=== PATIENT | male | born 1995 | race Caucasian/White ===

== ENCOUNTER 2024-03-14 12:36 | Outpatient (OUT) | payer BC, SELFPAY | END 2024-03-14 12:37 | disposition home or self-care (01) | LOC: CARD 12:42 | PROVIDERS: Visit Provider Physician Assistant | DX: R55 Syncope and collapse (principal); R94.31 Abnormal electrocardiogram [ECG] [EKG] | CPT/HCPCS: 93270 ==

== ENCOUNTER 2024-11-22 06:58 | Outpatient (OUT) | payer BC, SELFPAY ==
--- NOTE | 2024-11-22 | US_ITS ---
[facility] [place] [id number] Patient Name: ELVIN CAMILO MRN: [id number] date: 1995 Sex: M Assigned Patient Location: US Current Patient Location: US Accession/Order Number: [id number] Exam Date: 11/22/2024 07:02 Report Date: 11/22/2024 10:01 At the request of: MARY MONET Procedure: US right upper quadrant LIMITED RIGHT UPPER QUADRANT ABDOMINAL ULTRASOUND CLINICAL HISTORY: RIGHT UPPER QUADRANT PAIN x 2 WEEKS R10.11 COMPARISON: None The gallbladder is physiologically distended without shadowing calculi, wall thickening or pericholecystic fluid. No intra- or extrahepatic biliary dilatation is evident. The common duct measures 2-3 mm. The liver is normal in echogenicity. No intrahepatic masses are seen. There is appropriate hepatopetal flow within the main portal vein. The pancreas shows no significant sonographic abnormality. Cursory evaluation of the right kidney reveals no hydronephrosis or fluid within Barajas's pouch. US/US right upper quadrant IMPRESSION: NEGATIVE ULTRASOUND OF THE RIGHT UPPER QUADRANT. Impression dictated by: Mary uGidry M.D. 11/22/2024 10:01 AM Dictation Location: [place] [address] Electronically authenticated by: [id number] Y Date: 11/22/2024 10:01
--- OUTSIDE RECORDS SUMMARY | 2024-11-22 06:59 | XMS_ITS | Encounter Summary ---
Author Organization [facility] Address [address] [place] [address] Phone Care Team Providers Care Behavioral Health Consultant Name Role Phone Wallace Christopher PA-C Primary Care Provider [phone] Mary Whittington PA-C Unavailable [phone] Encounter Details Date Type Department Care Team (Late st Contact Info) Description 07/29/2024 Patient Risk Score ACO Care Management [address] [facility] [address] [place] [address] Social History Tobacco Use Types Packs/Day Years Used Date Smoking Tobacco: Never Passive Smoke Exposure: Never Smokeless Tobacco: Never Alcohol Use Standard Drinks/Week Comments Yes 0 (1 standard drink = 0.6 oz pur e alcohol) AUDIT-C Answer Date Recorded Q1: How often do you have a drink containing alc ohol? Monthly or less 12/06/2023 Q2: How many drinks containi ng alcohol do you have on a typical day when you are drinking? 1 or 2 12/06/2023 Q3: How often do you have si x or more drinks on one occasion? Never 12/06/2023 PHQ-2 Answer Date Recorded Patient Health Questionnaire-2 Score 0 11/02/2023 Sex and Gender Information Value Date Recorded Sex Assigned at Not on file Legal Sex Male 2:24 PM EST Gender Identity Not on file Sexual Orientation Not on file documented as of this encounter Plan of Treatment Not on file documented as of this encounter Visit Diagnoses Not on filedocumented in this encounter Additional Health Concerns Assessment Noted Time A fall risk assessment has been complete d for the patient 12/06/2023 1:50 PM EDT documented as of this encounter Care Teams Behavioral Health Consultant Relationship Specialty Start Date End Date Wallace Christopher PA-C [address] [facility], [address] [place] [address] PCP - General Internal Medicine 11/02/23 Mary Whittington PA-C 112 [facility] [address] [place] [address] PCP - Employee ACO PCP 05/27/24 documented as of this encounter
--- OUTSIDE RECORDS SUMMARY | 2024-11-22 06:59 | XMS_ITS | Encounter Summary ---
Author Organization [facility] Address [address] [place] [address] Phone Care Team Providers Care Laboratory Equipment Installer Name Role Phone Wallace Christopher PA-C Primary Care Provider [phone] Mary Whittington PA-C Unavailable [phone] Encounter Details Date Type Department Care Team (Late st Contact Info) Description 08/30/2024 Patient Risk Score ACO Care Management [address] [place] [address] Social History Tobacco Use Types [...] documented as of this encounter Care Teams Laboratory Equipment Installer Relationship Specialty Start Date End Date Wallace Christopher PA-C [address] [facility], [address] [place] [address] PCP - General Internal Medicine 11/02/23 Mary Whittington PA-C 112 [facility] [address] [place] [address] PCP - Employee ACO PCP 05/27/24 documented as of this encounter
--- OUTSIDE RECORDS SUMMARY | 2024-11-22 07:00 | XMS_ITS | Encounter Summary ---
Author Organization [facility] Address [address] [place] [address] Care Team Providers Care Back Tacker Name Role Phone Unavailable Primary Care Provider Unavailabl e Encounter Details Date Type Department Care Team (Late st Contact Info) Description 12/27/2023 Abstract SABINA [facility] [address] [place] [address] Unallocated, Noms Provider, [address] [place] [address] Social History Tobacco Use Types Packs/Day Years Used Date Smoking Tobacco: Never Assessed Sex and Gender Information Value Date Recorded Sex Assigned at Not on file Legal Sex Male 7:20 PM EDT Gender Identity Not on file Sexual Orientation Not on file documented as of this encounter Plan of Treatment Not on file documented as of this encounter Visit Diagnoses Not on filedocumented in this encounter
--- OUTSIDE RECORDS SUMMARY | 2024-11-22 07:00 | XMS_ITS | Clinical Summary ---
Author Organization [facility] Address [address] [place] [address] Care Team Providers Care Bumper Operator Name Role Phone Unavailable Primary Care Provider Unavailabl e Allergies No known active allergies Medications pantoprazole (ProtoNix) 40 MG EC tabletIndication s:Abdominal pain, unspecified abdominal location Take 1 tablet (40 mg) by mouth in the morning for 14 days. Take before meals. Do not crush, chew, or split. 14 tablet 5 11/29/19 25 Active pantoprazole (ProtoNix) 40 MG EC tabletIndication s:Abdominal pain, unspecified abdominal location Take 1 tablet (40 mg) by mouth in the morning for 14 days. Take before meals. Do not crush, chew, or split. 14 tablet 5 11/15/19 25 Discontinu ed(Reorder ) Active Problems Problem Noted Date Diagnosed Date Hypoglycemia 02/11/2024 Near syncope 02/11/2024 Elevated red blood cell count 02/11/2024 Anxiety 11/30/2023 Deviated septum 11/02/2023 Snoring 11/02/2023 SOB (shortness of breath) 11/02/2023 Dizziness and giddiness 01/02/2021 Resolved Problems Problem Noted Date Diagnosed Date Resolved Date Elevated blood pressure reading 11/02/2023 04/11/2024 Encounters Date Type Department Care Team Description 11/14/2024 Orders Only [facility] [address] [place] [address] Mary Whittington, PA Abdominal pain, unspecified abdominal location from Last 3 Months Family History Medical History Relation Name Comments Prostate cancer Father Relation Name Status Comments Brother Alive Father Alive Mother Alive Sister Alive Social History Tobacco Use Types Packs/Day Years Used Date Smoking Tobacco: Never Smokeless Tobacco: Never Tobacco Cessation:Counseling Given: Not Answered Alcohol Use Standard Drinks/Week Comments Yes 0 (1 standard drink = 0.6 oz pur e alcohol) B1300 Health Literacy Answer Date Recor ded How often do you need to hav e someone help you when you read instructions, pamphlets, or other written material from your doctor or pharmacy? Never 02/08/2024 Social Connection and Isolat ion Panel [NHANES] Answer Date Recorded In a typical week, how many times do you talk on the phone with family, friends, or neighbors? Twice a week 02/08/2024 How often do you get togethe r with friends or relatives? Twice a week 02/08/2024 How often do you attend chur or voodoo services? 1 to 4 times per year 02/08/2024 Do you belong to any clubs o r organizations such as hinduism groups, unions, fraternal or athletic groups, or school groups? Yes 02/08/2024 How often do you attend meet ings of the clubs or organizations you belong to? More than 4 times per year 02/08/2024 Are you , , di vorced, , never , or living with a partner? Never 02/08/2024 AUDIT-C Answer Date Recorded Q1: How often do you have a drink containing alc ohol? Monthly or less 02/11/2024 Q2: How many drinks containi ng alcohol do you have on a typical day when you are drinking? 1 or 2 02/11/2024 Q3: How often do you have si x or more drinks on one occasion? Never 02/11/2024 Overall Financial Resource Strain (CARDIA) Answe r Date Recorded How hard is it for you to pa y for the very basics like food, housing, medical care, and heating? Not hard at all 02/08/2024 PHQ-2 Answer Date Recorded Patient Health Questionnaire-2 Score 0 08/11/2024 [facility] of Occupat ional Health - Occupational Stress Questionnaire Answer Date Recorded Do you feel stress - tense, restless, nervous, or anxious, or unable to sleep at night because your mind is troubled all the time - these days? Rather much 02/08/2024 Exercise Vital Sign Answer Date Recorde d On average, how many days pe r week do you engage in moderate to strenuous exercise (like a brisk walk)? 4 days 02/08/2024 On average, how many minutes do you engage in exercise at this level? 70 min 02/08/2024 Hunger Vital Sign Answer Date Recorded Within the past 12 months, y ou worried that your food would run out before you got the money to buy more. Never true 02/08/20 24 Within the past 12 months, t he food you bought just didn't last and you didn't have money to get more. Never true 02/08/2024 PRAPARE - Transportation Answer Date Re corded In the past 12 months, has l ack of transportation kept you from medical appointments or from getting medications? No 01/27 In the past 12 months, has l ack of transportation kept you from meetings, work, or from getting things needed for daily living? No 02/08/2024 Housing Stability Vital Sign Answer [place] e Recorded In the last 12 months, was t here a time when you were not able to pay the mortgage or rent on time? No 02/08/2024 Number of Times Moved in the Last Year Not on fi le 02/08/2024 At any time in the past 12 m [place], were you homeless or living in a detention (including now)? No 02/08/2024 Sex and Gender Information Value Date Recorded Sex Assigned at Not on file Legal Sex Male 7:20 PM EDT Gender Identity Not on file Sexual Orientation Not on file Last Filed Vital Signs Vital Sign Reading Time Taken Comments Blood Pressure 112/68 08/11/2024 8:28 AM EDT Pulse 66 08/11/2024 8:28 AM EDT Temperature - - Respiratory Rate 16 04/11/2024 9:32 AM EST Oxygen Saturation 98% 08/11/2024 8:28 AM EDT Inhaled Oxygen Concentration - - Weight 92.5 kg (204 lb) 08/11/2024 8:28 AM EDT Height 188 cm (6' 2 ) 08/11/2024 8:28 AM EDT Body Mass Index 26.19 08/11/2024 8:28 AM EDT Plan of Treatment Not on file Insurance [facility]
--- OUTSIDE RECORDS SUMMARY | 2024-11-22 07:00 | XMS_ITS | Clinical Summary ---
Author Organization [facility] Address [address] [place] [address] Phone Care Team Providers Care Parts Representative Name Role Phone Wallace Christopher PA-C Primary Care Provider [phone] Mary Whittington PA-C Unavailable [phone] Allergies No known active allergies Medications busPIRone (Buspar) 5 mg tabletIndicatio ns:Anxiety TAKE 1 TABLET BY MOUTH TWICE A DAY 60 tablet 1 01/31/2024 Active metoprolol succinate XL (Toprol-XL) 25 mg 24 hr tabletIndicatio ns:SOB (shortness of breath),Anxiety Take 1 tablet (25 mg) by mouth once daily. Swallow whole. Do not chew or crush 90 tablet 1 04/04/2024 Active Active Problems Problem Noted Date Diagnosed Date Anxiety 11/30/2023 SOB (shortness of breath) 11/02/2023 Elevated blood pressure reading 11/02/2023 Snoring 11/02/2023 Deviated septum 11/02/2023 Procedure and treatment not carried out due to patient leaving prior to being seen by health care provider 01/06/2021 Dizziness and giddiness 01/02/2021 Encounters Date Type Department Care Team Description 10/30/2024 Patient Risk Score ACO Care Management [address] [place] [address] 09/29/2024 Patient Risk Score ACO Care Management [address] [place] [address] 09/04/2024 Orders Only ACO Care Management [address] [place] [id number] Carlos Ruelas MD 08/30/2024 Patient Risk Score ACO Care Management [address] [facility] [address] [place] [address] from Last 3 Months Immunizations Immunization Administration Dates Next Due DTaP, Unspecified 11/06/2002, 8,06/07/1997,04/09,02/13/1997 Flu vaccine (IIV4), preserva tive free *Check age/dose* 12/22/2022 Flu vaccine, quadrivalent, n o egg protein, age 6 month or greater (FLUCELVAX) 12/04/2021 Hepatitis A vaccine, pediatric/adolescent (HAVRIX, VAQTA) 11/12/2009 Hepatitis B vaccine, 19 yrs and under (RECOMBIVAX, ENGERIX) 1996 HiB, unspecified 03/27/1998,04/09/1997 Hib / Hep B 06/07/1997,02/13/1997 Influenza, injectable, quadrivalent 01/04/2021 MMR vaccine, subcutaneous (MMR II) 11/06/2002, Meningococcal ACWY-D (Menact ra) 4-valent conjugate vaccine 11/12/2009 PPD Test 04/14/2022 Poliovirus vaccine, subcutan eous (IPOL) 11/06/2002,03/27/1998,04/09/1997,02/13 Tdap vaccine, age 7 year and older (BOOSTRIX, ADACEL) 11/12/2009 Varicella vaccine, subcutane ous (VARIVAX) 11/12/2009,12/26/1997 Social History Tobacco Use Types Packs/Day Years Used Date Smoking Tobacco: Never Passive Smoke Exposure: Never Smokeless Tobacco: Never Tobacco Cessation:Counseling Given: [...] Sign Reading Time Taken Comments Blood Pressure 142/78 12/06/2023 1:54 PM EDT Pulse 73 12/06/2023 1:54 PM EDT Temperature 36.6 C (97.9 F) 10/22/2023 12:32 PM EDT Respiratory Rate 18 10/22/2023 12:32 PM EDT Oxygen Saturation 98% 12/06/2023 1:54 PM EDT Inhaled Oxygen Concentration - - Weight 94.5 kg (208 lb 6.4 oz) 12/06/2023 1:54 P M EDT Height 185.4 cm (6' 1 ) 11/02/2023 1:28 PM EDT Body Mass Index 27.5 11/02/2023 1:28 PM EDT Plan of Treatment Health Maintenance Due Date Last Done Comments HIV Screening 1995 Lipid Panel 1996 Yearly Adult Physical 1996 Hepatitis A Vaccines (2 of 2 - 2-dose series) 05/15/2010 11/12/2009 Hepatitis C Screening 2014 DTaP/Tdap/Td Vaccines (7 - Td or Tdap) 11/13/2019 11/12/2009, 11/06/2002, 03/27/1998, Additional history exists COVID-19 Vaccine () 11/28/2023 HPV Vaccines (1 - 3-dose standard series) 12/10/2023 Influenza Vaccine (#1) 2024 , 12/04/2021, 01/04/2021 Zoster Vaccines (1 of 2) 2046 11/12/2009, 11/29 Hepatitis B Vaccines Completed 06/07/1997, 02/13/1997, 1996 HIB Vaccines Completed 03/27/1998, 05/27, 04/09/1997, Additional history exists IPV Vaccines Completed 11/06/2002, 02/28, 04/09/1997, Additional history exists MMR Vaccines Completed 11/06/2002, 03/27/1998 Meningococcal Vaccine Aged Out 11/12/2009 No apmela darius eligible based on patient's age to complete this topic Pneumococcal Vaccine: Pediatrics and At-Risk Adult Patients Aged Out No longer eligible based on patient's age to complete this topic Rotavirus Vaccines Aged Out No longer eligible based on patient's age to complete this topic Insurance [employer] Care Teams Parts Representative Relationship Specialty Start Date End Date Wallace Christopher PA-C [address] [facility], [address] [place] [address] PCP - General Internal Medicine 11/02/23 Mary Whittington PA-C [address] [place], [place] [id number] PCP - Employee ACO PCP 05/27/24
--- OUTSIDE RECORDS SUMMARY | 2024-11-22 07:00 | XMS_ITS | Encounter Summary ---
Author Organization [facility] Address [address] [place] [address] Phone Care Team Providers Care Early Childhood Education Instructor Name Role Phone Wallace Christopher PA-C Primary Care Provider Wallace Christopher PA-C Unavailable Mary Whittington PA-C Unavailable [phone] Encounter Details Date Type Department Care Team (Late st Contact Info) Description 05/01/2024 Patient Risk Score ACO Care Management [address] [place] [address] Social History Tobacco Use Types [...] documented as of this encounter Care Teams Early Childhood Education Instructor Relationship Specialty Start Date End Date Wallace Christopher PA-C [address] [facility], [facility] [address] [place] [address] PCP - General Internal Medicine 11/02/23 Wallace Christopher PA-C [address] [facility], [facility] [address] [place] [address] PCP - Employee ACO PCP 02/27/24 5 Mary Whittington PA-C [address] [place] [address] [address] [place] [address] PCP - Employee ACO PCP 05/27/24 documented as of this encounter
--- OUTSIDE RECORDS SUMMARY | 2024-11-22 07:00 | XMS_ITS | Encounter Summary ---
Author Organization [facility] Address [address] [place] [address] Phone Care Team Providers Care Touch Up Carver Name Role Phone Wallace Christopher PA-C Primary Care Provider [phone] Wallace Christopher PA-C Unavailable [phone] Wallace Christopher PA-C Unavailable [phone] Mary Whittington PA-C Unavailable [phone] Encounter Details Date Type Department Care Team (Late st Contact Info) Description 08/30/[address] [facility] Care Management [address] [place] [address] Social History Tobacco Use Types [...] Diagnoses Not on filedocumented in this encounter Care Teams Touch Up Carver Relationship Specialty Start Date End Date Wallace Christopher PA-C [address] [facility], [address] [place] [address] PCP - General Internal Medicine 11/02/23 Wallace Christopher PA-C [address] [facility], [address] [place], [place] [address] PCP - Employee ACO PCP 12/28/23 Wallace Christopher PA-C [address] [facility], [facility] [address] [place] [address] PCP - Employee ACO PCP 02/27/24 5 Mary Whittington PA-C [address] [place] [address] [address] [place] [address] PCP - Employee ACO PCP 05/27/24 documented as of this encounter
--- OUTSIDE RECORDS SUMMARY | 2024-11-22 07:00 | XMS_ITS | Encounter Summary ---
Author Organization [facility] Address [address] [place] [address] Phone Care Team Providers Care Inorganic Chemist Name Role Phone Wallace Christopher PA-C Primary Care Provider [phone] Wallace Christopher PA-C Unavailable [phone] Mary Whittington PA-C Unavailable [phone] Encounter Details Date Type Department Care Team (Late st Contact Info) Description 03/31/2024 Patient Risk Score ACO Care Management [address] [place] [address] Social History Tobacco Use Types [...] documented as of this encounter Care Teams Inorganic Chemist Relationship Specialty Start Date End Date Wallace Christopher PA-C [address] [facility], [facility] [address] [place] [address] PCP - General Internal Medicine 11/02/23 Wallace Christopher PA-C [address] [facility], [facility] [address] [place] [address] PCP - Employee ACO PCP 02/27/24 5 Mary Whittington PA-C [address] [place] [address] [address] [place] [address] PCP - Employee ACO PCP 05/27/24 documented as of this encounter
--- OUTSIDE RECORDS SUMMARY | 2024-11-22 07:00 | XMS_ITS | Encounter Summary ---
Author Organization [facility] Address [address] [place] [address] Phone Care Team Providers Care Through Operator Name Role Phone Wallace Christopher PA-C Primary Care Provider [phone] Mary Whittington PA-C Unavailable [phone] Encounter Details Date Type Department Care Team (Late st Contact Info) Description 10/30/2024 Patient Risk Score ACO Care Management [address] [facility] [address] [place] [address] Social History Tobacco Use Types [...] documented as of this encounter Care Teams Through Operator Relationship Specialty Start Date End Date Wallace Christopher PA-C [address] [facility], [address] [place] [address] PCP - General Internal Medicine 11/02/23 Mary Whittington PA-C 112 [facility] [address] [place] [address] PCP - Employee ACO PCP 05/27/24 documented as of this encounter
--- OUTSIDE RECORDS SUMMARY | 2024-11-22 07:00 | XMS_ITS | Encounter Summary ---
Author Organization [facility] Address [address] [place] [address] Phone Care Team Providers Care Sheeter Waxer Operator Name Role Phone Wallace Christopher PA-C Primary Care Provider [phone] Wallace Christopher PA-C Unavailable [phone] Wallace Christopher PA-C Unavailable [phone] Mary Whittington PA-C Unavailable [phone] Encounter Details Date Type Department Care Team (Late st Contact Info) Description 09/30/2023 Patient Risk Score [facility] Care Management [address] [place] [address] Social History Tobacco Use Types [...] on filedocumented in this encounter Care Teams Sheeter Waxer Operator Relationship Specialty Start Date End Date Wallace Christopher PA-C [address] [facility], [address] [place] [address] PCP - General Internal Medicine 11/02/23 Wallace Christopher PA-C [address] [facility], [address] [place], [place] [id number] PCP - Employee ACO PCP 12/28/23 Wallace Christopher PA-C [address] [facility], [facility] [address] [place] [address] PCP - Employee ACO PCP 02/27/24 5 Mary Whittington PA-C [address] [place] [address] [address] [place] [address] PCP - Employee ACO PCP 05/27/24 documented as of this encounter
--- OUTSIDE RECORDS SUMMARY | 2024-11-22 07:00 | XMS_ITS | Encounter Summary ---
Author Organization [facility] Address [address] [place] [address] Care Team Providers Care Welfare Project Manager Name Role Phone Unavailable Primary Care Provider Unavailabl e Encounter Details Date Type Department Care Team (Late st Contact Info) Description 02/09/2024 Abstract [facility] [address] [place] [address] Unallocated, Noms Provider, [address] [place] [address] Social History Tobacco Use Types Packs/Day Years Used Date Smoking Tobacco: Never Assessed B1300 Health Literacy Answer Date Recor ded [...] 02/08/2024 How often do you attend chur ch or episcopalian services? 1 to 4 times per year 02/08/2024 Do you belong to any clubs o r organizations such as anabaptism groups, unions, fraternal or athletic groups, or [...] and heating? Not hard at all 02/08/2024 [facility] of Occupat ional Health - Occupational Stress [...] any time in the past 12 m [facility], were you homeless or living in a half-way (including now)? No 02/08/2024 Sex and Gender Information Value Date Recorded Sex Assigned at Not on file Legal Sex Male 7:20 PM EDT Gender Identity Not on file Sexual Orientation Not on file documented as of this encounter Functional Status * Audit-C Score Answer Date of Assessment Author 1 02/11/2024 9:01 AM Jabari Carrero LPN * Question Answer Date of Assessment Author Q1: How often do you have a drink containing alcohol? Monthly or less 02/11/2024 9:01 AM Ghassan Carrero LPN Q2: How many drinks containing alcohol do you have on a typical day when you are drinking? 1 or 2 02/11/2024 9:01 AM Gricelda Carrero LP N Q3: How often do you have six or more drinks on one occasion? Never 02/11/2024 9:01 AM Gricelda Carrero LP N documented as of this encounter Plan of Treatment Not on file documented as of this encounter Visit Diagnoses Not on filedocumented in this encounter
--- OUTSIDE RECORDS SUMMARY | 2024-11-22 07:00 | XMS_ITS | Encounter Summary ---
Author Organization [facility] Address [address] [place] [address] Care Team Providers Care Crew Member Name Role Phone Unavailable Primary Care Provider Unavailabl e Encounter Details Date Type Department Care Team (Late st Contact Info) Description 02/09/2024 Abstract [facility] [address] [place] [address] Unallocated, Noms Provider, [address] [place] [address] Social History Tobacco Use Types Packs/Day Years [...] often do you attend chur ch or hindu services? 1 to 4 times per year 02/08/2024 Do you belong to any clubs o r organizations such as catholic groups, unions, fraternal or athletic groups, or [...] and heating? Not hard at all 02/08/2024 [facility] - Occupational Stress [...] any time in the past 12 m [facility], were you homeless or living in a usp (including now)? No 02/08/2024 Sex and Gender [...]
--- OUTSIDE RECORDS SUMMARY | 2024-11-22 07:00 | XMS_ITS | Encounter Summary ---
Author Organization [facility] Address [address] [place] [address] Phone Care Team Providers Care Scaffold Builder Name Role Phone Wallace Christopher PA-C Primary Care Provider [phone] Wallace Christopher PA-C Unavailable [phone] Wallace Christopher PA-C Unavailable [phone] Mary Whittington PA-C Unavailable [phone] Encounter Details Date Type Department Care Team (Late st Contact Info) Description 07/01/2023 Patient Risk Score [facility] Care Management [address] [place] [address] Social History Tobacco Use Types [...] on filedocumented in this encounter Care Teams Scaffold Builder Relationship Specialty Start Date End Date Wallace Christopher PA-C [address] [facility], [address] [place] [address] PCP - General Internal Medicine 11/02/23 Wallace Christopher PA-C [address] [facility], [address] [place], [place] [id number] PCP - Employee ACO PCP 12/28/23 Wallace Christopher PA-C [address] [facility], [facility] [address] [place] [address] PCP - Employee ACO PCP 02/27/24 5 Mary Whittington PA-C [address] [place] [address] [address] [place] [address] PCP - Employee ACO PCP 05/27/24 documented as of this encounter
--- OUTSIDE RECORDS SUMMARY | 2024-11-22 07:00 | XMS_ITS | Encounter Summary ---
Author Organization [facility] Address [address] [place] [address] Phone Care Team Providers Care Lead Applier Name Role Phone Wallace Christopher PA-C Primary Care Provider [phone] Wallace Christopher PA-C Unavailable [phone] Wallace Christopher PA-C Unavailable [phone] Mary Whittington PA-C Unavailable [phone] Encounter Details Date Type Department Care Team (Late st Contact Info) Description 07/31/2023 Patient Risk Score [facility] Care Management [address] [place] [address] Social History Tobacco Use Types [...] on filedocumented in this encounter Care Teams Lead Applier Relationship Specialty Start Date End Date Wallace Christopher PA-C [address] [facility], [address] [place] [address] PCP - General Internal Medicine 11/02/23 Wallace Christopher PA-C [address] [facility], [address] [place], [place] [id number] PCP - Employee ACO PCP 12/28/23 Wallace Christopher PA-C [address] [facility], [facility] [address] [place] [address] PCP - Employee ACO PCP 02/27/24 5 Mary Whittington PA-C [address] [place] [address] [address] [place] [address] PCP - Employee ACO PCP 05/27/24 documented as of this encounter
--- OUTSIDE RECORDS SUMMARY | 2024-11-22 07:00 | XMS_ITS | Encounter Summary ---
Author Organization [facility] Address [address] [place] [address] Phone Care Team Providers Care Road Train Driver Name Role Phone Wallace Christopher PA-C Primary Care Provider [phone] Wallace Christopher PA-C Unavailable [phone] Wallace Christopher PA-C Unavailable [phone] Mary Whittington PA-C Unavailable [phone] Reason for Referral * Consultation (Routine) - Authorized Specialty Diagnoses / Procedures Referred By Mikayla courtney Referred To Contact Family Medicine / Primary Care Diagnoses Anxiety Lara Tompkins APRN-CNP Phone: tel: fax: Referral ID Status Reason Start Date Expiration Date Visits Requested Visits Authorized [id number] Authorized Specialty Services Required 10/22/2023 10/21/2024 1 1 Encounter Details Date Type Department Care Team (Late st Contact Info) Description 10/22/2023 Community Orders [facility] [address] [facility] [place] [address] Lara Tompkins APRN-CNP [address] [place], [place] [id number] Anxiety (Primary Dx) Social History Tobacco Use Types Packs/Day Years Used Date Smoking Tobacco: Never Assessed Sex and Gender Information Value Date Recorded Sex Assigned at Not on file Legal Sex Male 2:24 PM EST Gender Identity Not on file Sexual Orientation Not on file documented as of this encounter Plan of Treatment Scheduled Referrals Name Type Priority Associated Diagnoses Orde r Schedule Referral to Primary Care Outpatient Referral Routine Anxiety Expected: 10/22/2023 (Approximate), Expires: 10/21/2024 documented as of this encounter Visit Diagnoses Diagnosis Anxiety- Primary Anxiety state, unspecified documented in this encounter Care Teams Road Train Driver Relationship Specialty Start Date End Date Wallace Christopher PA-C [address] [facility], [facility] [address] [place] [address] PCP - General Internal Medicine 11/02/23 Wallace Christopher PA-C [address] [facility], [facility] [address] [place] [address] PCP - Employee ACO PCP 12/28/23 Wallace Christopher PA-C [address] [facility], [facility] [address] [place] [address] PCP - Employee ACO PCP 02/27/24 5 Mary Whittington PA-C 112 [facility] 110 [place] [address] PCP - Employee ACO PCP 05/27/24 documented as of this encounter
--- OUTSIDE RECORDS SUMMARY | 2024-11-22 07:00 | XMS_ITS | Encounter Summary ---
Author Organization [facility] Address [address] [place] [address] Phone Care Team Providers Care Joy Operator Name Role Phone Wallace Christopher PA-C Primary Care Provider [phone] Wallace Christopher PA-C Unavailable [phone] Mary Whittington PA-C Unavailable [phone] Encounter Details Date Type Department Care Team (Late st Contact Info) Description 03/01/2024 Patient Risk Score [facility] Care Management [address] [facility] [address] [place] [address] Social History Tobacco Use Types [...] documented as of this encounter Care Teams Joy Operator Relationship Specialty Start Date End Date Wallace Christopher PA-C [address] [facility], [facility] [address] [place] [address] PCP - General Internal Medicine 11/02/23 Wallace Christopher PA-C [address] [facility], [facility] [address] [place] [address] PCP - Employee ACO PCP 02/27/24 5 Mary Whittington PA-C [address] [place] [address] [address] [place] [address] PCP - Employee ACO PCP 05/27/24 documented as of this encounter
--- OUTSIDE RECORDS SUMMARY | 2024-11-22 07:00 | XMS_ITS | Encounter Summary ---
Author Organization [facility] Address [address] [place] [address] Phone Care Team Providers Care Inside Sales Manager Name Role Phone Wallace Christopher PA-C Primary Care Provider [phone] Wallace Christopher PA-C Unavailable Mary Whittington PA-C Unavailable [phone] Encounter Details Date Type Department Care Team (Late st Contact Info) Description 01/31/2024 Patient Risk Score [facility] Care Management [address] [facility] [address] [place] [address] Social History Tobacco Use Types [...] documented as of this encounter Care Teams Inside Sales Manager Relationship Specialty Start Date End Date Wallace Christopher PA-C [address] [facility], [facility] [address] [place] [address] PCP - General Internal Medicine 11/02/23 Wallace Christopher PA-C [address] [facility], [facility] [address] [place] [address] PCP - Employee ACO PCP 02/27/24 5 Mary Whittington PA-C [address] [place] [address] [address] [place] [address] PCP - Employee ACO PCP 05/27/24 documented as of this encounter
--- OUTSIDE RECORDS SUMMARY | 2024-11-22 07:00 | XMS_ITS | Encounter Summary ---
Author Organization [facility] Address [address] [place] [address] Phone Care Team Providers Care Extension Service Supervisor Name Role Phone Wallace Christopher PA-C Primary Care Provider [phone] Mary Whittington PA-C Unavailable [phone] Encounter Details Date Type Department Care Team (Late st Contact Info) Description 09/29/2024 Patient Risk Score [facility] Care Management [address] [place] [address] Social History Tobacco Use Types [...] documented as of this encounter Care Teams Extension Service Supervisor Relationship Specialty Start Date End Date Wallace Christopher PA-C [address] [facility], [address] [place] [address] PCP - General Internal Medicine 11/02/23 Mary Whittington PA-C 112 [facility] 110 [place] [address] PCP - Employee ACO PCP 05/27/24 documented as of this encounter
--- OUTSIDE RECORDS SUMMARY | 2024-11-22 07:00 | XMS_ITS | Encounter Summary ---
Author Organization [facility] Address [address] [place] [address] Phone Care Team Providers Care Ballaster Name Role Phone Wallace Christopher PA-C Primary Care Provider [phone] Wallace Christopher PA-C Unavailable [phone] Wallace Christopher PA-C Unavailable [phone] Mary Whittington PA-C Unavailable [phone] Encounter Details Date Type Department Care Team (Late st Contact Info) Description 12/31/2023 Patient Risk Score [facility] Care Management [address] [place] [address] Social History Tobacco Use Types [...] on file Sexual Orientation Not on file COVID-19 Exposure Response Date Recorded In the last 10 days, have yo u been in contact with someone who was confirmed or suspected to have Coronavirus/COVID-19? No / Unsure 12/06/2023 1:50 PM EDT documented as of this encounter Plan of Treatment Not on file documented as of this encounter Visit Diagnoses Not on filedocumented in this encounter Additional Health Concerns Assessment Noted Time A fall risk assessment has been complete d for the patient 12/06/2023 1:50 PM EDT documented as of this encounter Care Teams Ballaster Relationship Specialty Start Date End Date Wallace Christopher PA-C [address] [facility], [facility] [address] [place] [address] PCP - General Internal Medicine 11/02/23 Wallace Christopher PA-C [address] [facility], [facility] [address] [place] [address] PCP - Employee ACO PCP 12/28/23 Wallace Christopher PA-C [address] [facility], [facility] [address] [place] [address] PCP - Employee ACO PCP 02/27/24 5 Mary Whittington PA-C 112 [facility] 110 [place] [address] PCP - Employee ACO PCP 05/27/24 documented as of this encounter
--- OUTSIDE RECORDS SUMMARY | 2024-11-22 07:00 | XMS_ITS | Encounter Summary ---
Author Organization [facility] Address [address] [place] [address] Care Team Providers Care Lab Tech Name Role Phone Unavailable Primary Care Provider Unavailabl e Encounter Details Date Type Department Care Team (Late st Contact Info) Description 04/03/2024 Abstract [facility] [address] [place] [address] Unallocated, Noms Provider, [address] [place] [address] Social History Tobacco Use Types Packs/Day Years Used Date Smoking Tobacco: Never Smokeless Tobacco: Never Alcohol Use Standard [...] often do you attend chur ch or methodist services? 1 to 4 times per year 02/08/2024 Do you belong to any clubs o r organizations such as gnosticism groups, unions, fraternal or athletic groups, or [...] and heating? Not hard at all 02/08/2024 [facility] - Occupational Stress Questionnaire Answer Date Recorded [...] any time in the past 12 m [facility], were you homeless or living in a chcf (including now)? No 02/08/2024 Sex and Gender [...]
--- OUTSIDE RECORDS SUMMARY | 2024-11-22 07:00 | XMS_ITS | Encounter Summary ---
Author Organization [facility] Address [address] [place] [address] Care Team Providers Care Sight Effects Specialist Name Role Phone Unavailable Primary Care Provider Unavailabl e Encounter Details Date Type Department Care Team (Late st Contact Info) Description 02/09/2024 Abstract [facility] [address] [place] [address] Unallocated, Noms Provider, [address] [place] [address] Social History Tobacco Use Types Packs/Day Years [...] often do you attend chur ch or latter day services? 1 to 4 times per year 02/08/2024 Do you belong to any clubs o r organizations such as denominational groups, unions, fraternal or athletic groups, or [...] and heating? Not hard at all 02/08/2024 [facility] ional Health - Occupational Stress [...] any time in the past 12 m [facility], were you homeless or living in a fdc (including now)? No 02/08/2024 Sex and Gender [...]
--- OUTSIDE RECORDS SUMMARY | 2024-11-22 07:00 | XMS_ITS | Encounter Summary ---
Author Organization [facility] Address [address] [place] [address] Care Team Providers Care Ore Puncher Name Role Phone Unavailable Primary Care Provider Unavailabl e Encounter Details Date Type Department Care Team (Late st Contact Info) Description 02/09/2024 Abstract [facility] [address] [place] [address] Unallocated, Noms Provider, [address] [place] [address] Social History Tobacco Use Types Packs/Day Years [...] often do you attend chur ch or sabianist services? 1 to 4 times per year 02/08/2024 Do you belong to any clubs o r organizations such as anglican groups, unions, fraternal or athletic groups, or [...] and heating? Not hard at all 02/08/2024 [facility]at ional Health - [...] any time in the past 12 m [facility], were you homeless or living in a mcfp (including now)? No 02/08/2024 Sex and Gender [...]
--- OUTSIDE RECORDS SUMMARY | 2024-11-22 07:00 | XMS_ITS | Encounter Summary ---
Author Organization [facility] Address [address] [place] [address] Phone Care Team Providers Care Yarn Bleaching Machine Operator Name Role Phone Wallace Christopher PA-C Primary Care Provider [phone] Mary Whittington PA-C Unavailable [phone] Encounter Details Date Type Department Care Team (Late st Contact Info) Description 06/29/2024 Patient Risk Score [facility] Care Management [address] [place] [address] Social History Tobacco Use Types [...] documented as of this encounter Care Teams Yarn Bleaching Machine Operator Relationship Specialty Start Date End Date Wallace Christopher PA-C [address] [facility], [address] [place] [address] PCP - General Internal Medicine 11/02/23 Mary Whittington PA-C 112 [facility] 110 [place] [address] PCP - Employee ACO PCP 05/27/24 documented as of this encounter
--- OUTSIDE RECORDS SUMMARY | 2024-11-22 07:00 | XMS_ITS | Encounter Summary ---
Author Organization [facility] Address [address] [place] [address] Care Team Providers Care Remediation Technician Name Role Phone Unavailable Primary Care Provider Unavailabl e Encounter Details Date Type Department Care Team (Late st Contact Info) Description 03/31/2024 Clinisync Result Encounter [facility] External Department Unsolicited Trevon Whittington, PA 112 [facility] [address] [place] [id number] Social History Tobacco Use Types Packs/Day Years [...] often do you attend chur ch or zoroastrian services? 1 to 4 times per year 02/08/2024 Do you belong to any clubs o r organizations such as mormon groups, unions, fraternal or athletic groups, or [...] and heating? Not hard at all 02/08/2024 [facility] Occupat ional Health - Occupational [...] time in the past 12 m [facility], were you homeless or living in a group home (including now)? No 02/08/2024 Sex and Gender Information Value Date Recorded Sex Assigned at Not on file Legal Sex Male 7:20 PM EDT Gender Identity Not on file Sexual Orientation Not on file documented as of this encounter Plan of Treatment Not on file documented as of this encounter Procedures Procedure Name Priority Date/Time Associated Diagnosis Comments 30 DAY EVENT MONITOR 03/31/2024 8:27 AM EST documented in this encounter Results * 30 DAY EVENT MONITOR (03/31/2024 8:27 AM EST) Anatomical Region Laterality Modality Radiographic Betty ging 03/31/2024 8:27 AM EST Narrative 04/01/2024 2:18 [place] [address] Cardiology Report Signed Patient: BARNEY CAMILO MR#: [id number] : 1995 Acct:[id number] Age/Sex: 28 / M ADM Date: 03/14/24 Loc: CARD Attending Dr: TREVON WHITTINGTON Ordering Physician: TREVON WHITTINGTON Date of Service: 03/14/24 Procedure(s): CA 30 day event monitor Accession Number(s): [id number] cc: TREVON WHITTINGTON ; Physician,Non-Staff M.DJalyn [facility] Test Date: 2024-03-31 Pat Name: BARNEY CAMILO Department: Room: - Gender: Male Dressmaking Teacher: : 1995 Requested By: 821 Order Number: [id number] Ramila MD: TEJA QUINONES Interpretive Statements Predominant rhythm is sinus with average rate of 61 bpm Tachycardia - max rate of 128 bpm Bradycardia (48% burden) - min rate of 34 bpm Ventricular ectopy - none Patient triggered events: 3 - associated with sinus dinora - associated with lightheadedness, SOB and fatigue Impression: Predominant rhythm is sinus with average rate of 61 bpm w/ 48% bradycardia burden Fastest rate of 128 bpm and slowest rate of 34 bpm Longest episode of sinus tachy is 10min 12sec with rates between 111-117bpm Longest episode of sinus dinora is 1h 12min 47sec with rates between 37-43 bpm No VE No atrial fib No pauses Electronically Signed On 04-01-2024 14:17:39 EST by TEJA QUINONES Dictated By: Teja Quinones D.O. Signed By: 04/01/24141704/01/241417 DD/ 6 TD/TT: Senior Environmental Engineer: Procedure Note Radiology, Radiologist, - 04/01/2024 [place] [address] Cardiology Report Signed Patient: BARNEY CAMILOMR#: [id number] : 1995Acct:[id number] Age/Sex: 28 / MADM Date: 03/14/24 Loc: CARD Attending Dr: TREVON WHITTINGTON Ordering Physician: TREVON WHITTINGTON Date of Service: 03/14/24 Procedure(s): CA 30 day event monitor Accession Number(s): [id number] cc: TREVON WHITTINGTON ; Physician,Non-Staff M.Wenceslao [facility] Test Date: 2024-03-31 Pat Name: BARNEY CAMILO Department: Room: - Gender: Male Dressmaking Teacher: : 1995 Requested By: 821 Order Number: [id number] Reading MD: TEJA QUINONES Interpretive Statements Predominant rhythm is sinus with average rate of 61 bpm Tachycardia - max rate of 128 bpm Bradycardia (48% burden) - min rate of 34 bpm Ventricular ectopy - none Patient triggered events: 3 - associated with sinus dinora - associated with lightheadedness, SOB and fatigue Impression: Predominant rhythm is sinus with average rate of 61 bpm w/ 48% bradycardia burden Fastest rate of 128 bpm and slowest rate of 34 bpm Longest episode of sinus tachy is 10min 12sec with rates [id number] Longest episode of sinus dinora is 1h 12min 47sec with rates between 37-43bpm No VE No atrial fib No pauses Electronically Signed On 04-01-2024 14:17:39 EST by TEJA QUINONES Dictated By: Teja Quinones D.O. Signed By:04/01/24 1418 04/01/24 141 DD/ 6 TD/TT: Senior Environmental Engineer: us Trevon CHEN IMG XR PROCEDURES Final Result documented in this encounter Visit Diagnoses Not on filedocumented in this encounter
--- OUTSIDE RECORDS SUMMARY | 2024-11-22 07:00 | XMS_ITS | Encounter Summary ---
Author Organization [facility] Address [address] [place] [address] Care Team Providers Care Sander Machine Name Role Phone Unavailable Primary Care Provider Unavailabl e Encounter Details Date Type Department Care Team (Late st Contact Info) Description 11/14/2024 Orders Only [facility] [address] [facility] 110 [place] [id number] Mary Whittington PA [address] [facility] [address] [place] [address] Abdominal pain, unspecified abdominal location Social History Tobacco Use Types Packs/Day Years [...] often do you attend chur ch or zoroastrianism services? 1 to 4 times per year [...] Recorded Patient Health Questionnaire-2 Score 0 08/11/2024 [facility] Occupat ional Health - Occupational Stress [...] any time in the past 12 m [facility], were you homeless or living in a mcfp (including now)? No 02/08/2024 Sex and Gender Information Value Date Recorded Sex Assigned at Not on file Legal Sex Male 7:20 PM EDT Gender Identity Not on file Sexual Orientation Not on file documented as of this encounter Progress Notes * GUSTAVO Lazo - 11/14/2024 12:20 PM EDT Pantoprazole refilled documented in this encounter Plan of Treatment Not on file documented as of this encounter Visit Diagnoses Diagnosis Abdominal pain, unspecified abdominal location documented in this encounter
--- OUTSIDE RECORDS SUMMARY | 2024-11-22 07:00 | XMS_ITS | Encounter Summary ---
Author Organization [facility] Address [address] [place] [address] Care Team Providers Care Deputy Sheriff Lieutenant Name Role Phone Unavailable Primary Care Provider Unavailabl e Encounter Details Date Type Department Care Team (Late st Contact Info) Description 10/25/2023 Orders Only [facility] [address] [place] [address] Unallocated, Noms Provider, [address] [place] [address] Social History Tobacco Use Types Packs/Day Years [...] Procedure Name Priority Date/Time Associated Diagnosis Comments SCANNED LABS Routine 10/25/2023 8:45 AM EDT documented in this encounter Results * SCANNED LABS (10/25/2023 8:45 AM EDT) Noms Provider Unallocated LAB CHG PERFORMABLE S Final Result documented in this encounter Visit Diagnoses Not on filedocumented in this encounter
--- OUTSIDE RECORDS SUMMARY | 2024-11-22 07:00 | XMS_ITS | Encounter Summary ---
Author Organization [facility] Address [address] [place] [address] Phone Care Team Providers Care Cement Block Maker Name Role Phone Wallace Christopher PA-C Primary Care Provider [phone] Wallace Christopher PA-C Unavailable [phone] Wallace Christopher PA-C Unavailable [phone] Mary Whittington PA-C Unavailable [phone] Encounter Details Date Type Department Care Team (Late st Contact Info) Description 10/31/2023 Patient Risk Score ACO Care Management [address] [place] [address] Social History Tobacco Use Types Packs/Day Years Used Date Smoking Tobacco: Never Assessed PHQ-2 Answer Date Recorded Patient Health Questionnaire-2 [...] suspected to have Coronavirus/COVID-19? No / Unsure 11/01/2023 12:01 PM EDT documented as of this encounter Functional Status * Over the past 2 weeks, how often have you been bothered by any of the following problems? Question Answer Date of Assessment Author Little interest or pleasure in doing things Not at all 11/02/2023 1:27 PM EDT Ricarda Pittman M A Feeling down, depressed, or hopeless Not at all 11/02/2023 1:27 PM EDT Ricarda Pittman M A Patient Health Questionnaire -2 Score 0 11/02/2023 1:27 PM EDT Ricarda Pittman M A * Calculated C-SSRS Risk Score (Lifetime/Recent) Answer Date of Assessment Author No Risk Indicated 11/02/2023 1:27 PM EDT Ricarda Pittman MA * [place] Suicide Severity Rating Scale (Screener/Recent Self-Report) Question Answer Date of Assessment Author 1. Wish to be (Past 1 Month) No 024 1:27 PM EDT Ricarda Pittman MA 2. Non-Specific Active Suici essie Thoughts (Past 1 Month) No 11/02/2023 1:27 PM EDT Ricarda Pittman MA 6. Suicidal Behavior (Lifetime) No 1:27 PM EDT Ricarda Pittman MA documented as of this encounter Plan of Treatment Not on file documented as of this encounter Visit Diagnoses Not on filedocumented in this encounter Care Teams Cement Block Maker Relationship Specialty Start Date End Date Wallace Christopher PA-C [address] [facility], [facility] [address] [place] [address] PCP - General Internal Medicine 11/02/23 Wallace Christopher PA-C [address] [facility], [facility] [address] [place] [address] PCP - Employee ACO PCP 12/28/23 Wallace Christopher PA-C [address] [facility], [facility] [address] [place] [address] PCP - Employee ACO PCP 02/27/24 5 Mary Whittington PA-C [address] [facility] [address] [place] [address] PCP - Employee ACO PCP 05/27/24 documented as of this encounter
--- OUTSIDE RECORDS SUMMARY | 2024-11-22 07:00 | XMS_ITS | Encounter Summary ---
Author Organization [facility] Address [address] [place] [address] Phone Care Team Providers Care Product Safety Technician Name Role Phone Wallace Christopher PA-C Primary Care Provider [phone] Wallace Christopher PA-C Unavailable [phone] Wallace Christopher PA-C Unavailable Mary Whittington PA-C Unavailable Encounter Details Date Type Department Care Team (Late st Contact Info) Description 11/30/2023 Patient Risk Score ACO Care Management [address] [place] [address] Social History Tobacco Use Types Packs/Day Years Used Date Smoking Tobacco: Never Passive Smoke Exposure: Never Smokeless Tobacco: Never Alcohol Use Standard Drinks/Week Comments Yes 0 (1 standard drink = 0.6 oz pur e alcohol) PHQ-2 Answer Date Recorded Patient Health Questionnaire-2 [...] has been complete d for the patient 11/02/2023 1:27 PM EDT documented as of this encounter Care Teams Product Safety Technician Relationship Specialty Start Date End Date Wallace Christopher PA-C [address] [facility], [facility] [address] [place] [address] PCP - General Internal Medicine 11/02/23 Wallace Christopher PA-C [address] [facility], [facility] [address] [place] [address] PCP - Employee ACO PCP 12/28/23 Wallace Christopher PA-C [address] [facility], [facility] [address] [place] [address] PCP - Employee ACO PCP 02/27/24 5 Mary Whittington PA-C 112 [facility] [address] [place] [address] PCP - Employee ACO PCP 05/27/24 documented as of this encounter
--- OUTSIDE RECORDS SUMMARY | 2024-11-22 07:00 | XMS_ITS | Encounter Summary ---
Author Organization [facility] Address [address] [place] [address] Care Team Providers Care Director Public Name Role Phone Unavailable Primary Care Provider Unavailabl e Encounter Details Date Type Department Care Team (Late st Contact Info) Description 11/01/2023 Clinisync Result Encounter [facility] External Department Unsolicited Brittany Reyes MD [address] [facility] [address] [place] [address] Social History Tobacco Use Types Packs/Day Years [...] Procedure Name Priority Date/Time Associated Diagnosis Comments XR CHEST 2 VIEWS PA/LAT 11/01/2023 12:03 PM EDT documented in this encounter Results * XR CHEST 2 VIEWS PA/LAT (11/01/2023 12:03 PM EDT) Anatomical Region Laterality Modality Radiographic Betty ging 11/01/2023 12:0 3 PM EDT Narrative 11/02/2023 6:57 AM EDT Interpreted By: Vivek An, STUDY: XR CHEST 2 VIEWS; 11/01/2023 12:08 pm INDICATION: Signs/Symptoms:Shortness of breath. COMPARISON: None. ACCESSION NUMBER(S): [id number] ORDERING CLINICIAN: BRITTANY REYES FINDINGS: CARDIOMEDIASTINAL SILHOUETTE: Cardiomediastinal silhouette is normal in size and configuration. LUNGS: Lungs are clear. ABDOMEN: No remarkable upper abdominal findings. BONES: No acute osseous changes. IMPRESSION: 1. No evidence of acute cardiopulmonary process. Signed by: Vivek An 11/02/2023 6:57 AM Dictation workstation: [id number] Procedure Note Radiology, Radiologist, - 11/02/2023 Interpreted By: Vivek An, STUDY: XR CHEST 2 VIEWS; 11/01/2023 12:08 pm INDICATION: Signs/Symptoms:Shortness of breath. COMPARISON: None. ACCESSION NUMBER(S): [id number] ORDERING CLINICIAN: BRITTANY REYES FINDINGS: CARDIOMEDIASTINAL SILHOUETTE: Cardiomediastinal silhouette is normal in size and configuration. LUNGS: Lungs are clear. ABDOMEN: No remarkable upper abdominal findings. BONES: No acute osseous changes. IMPRESSION: 1. No evidence of acute cardiopulmonary process. Signed by: Vivek An 11/02/2023 6:57 AM Dictation workstation: [id number] Brittany Reyes MD IMG XR PROCEDURES Final Result documented in this encounter Visit Diagnoses Not on filedocumented in this encounter
--- OUTSIDE RECORDS SUMMARY | 2024-11-22 07:00 | XMS_ITS | Encounter Summary ---
Author Organization [facility] Address [address] [place] [address] Phone Care Team Providers Care Employment Specialist Name Role Phone Wallace Christopher PA-C Primary Care Provider [phone] Mary Whittington PA-C Unavailable [phone] Encounter Details Date Type Department Care Team (Late st Contact Info) Description 05/30/2024 Patient Risk Score ACO Care Management [address] [place] [address] Social History Tobacco Use Types [...] documented as of this encounter Care Teams Employment Specialist Relationship Specialty Start Date End Date Wallace Christopher PA-C [address] [facility], [address] [place] [address] PCP - General Internal Medicine 11/02/23 Mary Whittington PA-C 112 [facility] [address] [place] [address] PCP - Employee ACO PCP 05/27/24 documented as of this encounter
--- OUTSIDE RECORDS SUMMARY | 2024-11-22 07:00 | XMS_ITS | CCD ---
Author Organization [facility] Care Team Providers Care Utilities Ground Worker Name Role Phone DR NILES BURKETT Primary Care Unavailable BARRETT RENEE Consulting Unavailable BARRETT RENEE Attending Unavailable BARRETT RENEE Admitting Unavailable BRITTANY CLAYTON Referring Unavailable EMILY RAI Primary Care Unavailable EMILY RAI Attending Unavailable BIJAL TOMPKINS Referring Unava ilable EMILY RAI Primary Care Unavailable EMILY RAI Attending Unavailable EMILY RAI Primary Care Unavailable DO Feli Irizarry Emergency Provider [phone] MD Brittany Clayton Primary Care Provider Unavailable Primary Care Provider UnavailEmily Clement PA-C Primary Care Provider Bijal Tompkins Unavailable Chasity Nunn Unavailable Bijal Tompkins NP Unavailable Feli Irizarry Admitting Unavailable Feli Irizarry Attending Unavailable Brittany Clayton Primary Care Unavailable MARY MONET Attending Unavailable MARY MONET Attending Unavailable MARY MONET Attending Unavailable Allergies Allergy Classification Reported Allergen(s) Allergy Type Date of Onset Reaction(s) Facility (1 source) ALLERGIES NOT ON FILE; Translations: [ALLERGIES NOT ON FILE] Propensity to adverse reactions (disorder) [facility] Medications Current Medications Medication Drug Class(es) Dates Sig (Normalized) Sig (Original) cephalexin 500 mg oral capsule (3 sources) Cephalosporin Antibacterial Start: 03-02-2023 Cephalexin 500 mg oral capsule 24 hr metoprolol succinate 25 mg extended release oral tablet (8 sources) beta-Adrenergic Pierre Start: 12-25-2023 End: 04-11-2024 take 1 tablet by mouth every twenty-four hours in the morning metoprolol succinate XL (Toprol-XL) 25 MG 24 hr tablet Take 25 mg by mouth in the morning. 12/25/2023 04/11/2024 Discontinued (Side effects) Start: 11-02-2023 End: 01-01-2024 take 25 mg by mouth once daily Metoprolol Succinate Ac tive 25 MG PO Daily December 25, 2023 12:00am pantoprazole 40 mg delayed release oral tablet (4 sources) Proton Pump Inhibitor Start: 08-11-2024 End: 11-28-2024 take 1 tablet by mouth before mealtime pantoprazole (ProtoNix) 40 MG EC tablet Indications: Abdominal pain, unspecified abdominal location Take 1 tablet (40 mg) by mouth in the morning for 14 days. Take before meals. Do not crush, chew, or split. 14 tablet 11/14/2024 11/28/2024 Active Completed/Discontinued Medications Medication Drug Class(es) Dates Sig (Normalized) Sig (Original) busPIRone hydrochloride 5 mg oral tablet (5 sources) Start: 12-06-2023 End: 02-11-2024 take 1 tablet by mouth in the morning busPIRone (Buspar) 5 MG tablet Take 5 mg by mouth in the morning and 5 mg in the evening. 12/25/2023 02/11/2024 Discontinued (Ineffective) NEGATED: Highlighted row has not occurred! (3 sources) Start: 10-31-2023 End: 10-31-2023 Start: 10-23-2023 End: 10-23-2023 Start: 10-22-2023 End: 10-22-2023 Problems Active Problems Problem Classification Problem Date Documented Date Episodic/Chronic Abdominal pain (3 sources) Abdominal pain; Translations: [Unspecified abdominal pain] 08-11-2024 Episodic Anxiety disorders (20 sources) Anxiety disorder, unspecified; Translations: [Anxiety] Onset: 10-22-2023 Chronic Cardiac dysrhythmias (2 sources) Bradycardia; Translations: [Bradycardia, unspecified] 04-11-2024 Episodic Other circulatory disease (2 sources) Elevated blood-pressure reading, without diagnosis of hypertension; Translations: [Elevated blood-pressure reading, without diagnosis of hypertension] Onset: 11-02-2023 Episodic Other endocrine disorders (12 sources) Hypoglycemia; Translations: [Hypoglycemia, unspecified] Onset: 02-11-2024 12-25-2023 Chronic Other lower respiratory disease (2 sources) Other forms of dyspnea; Translations: [Other forms of dyspnea] Onset: 11-01-2023 Episodic Other lower respiratory disease (2 sources) Unspecified abnormalities of breathing; Translations: [Unspecified abnormalities of breathing] Onset: 10-21-2023 Episodic Other lower respiratory disease (2 sources) Snoring; Translations: [Snoring] Onset: 11-02-2023 Episodic Other screening for suspected conditions (not mental disorders or infectious disease) (6 sources) Electrocardiogram abnormal; Translations: [Abnormal electrocardiogram [ECG] [EKG]] 02-11-2024 Episodic Other upper respiratory disease (2 sources) Deviated nasal septum; Translations: [Deviated nasal septum] Onset: 11-02-2023 Episodic Residual codes; unclassified (1 source) Procedure and treatment not carried out due to patient leaving prior to being seen by health care provider; Translations: [PROC AND TX NOT CARRIED OUT PT LEAVE] Onset: 01-06-2021 Episodic Past or Other Problems Problem Classification Problem Date Documented Da te Episodic/Chronic Conditions associated with dizziness or vertigo (14 sources) Dizziness and giddiness; Translations: [Dizziness and giddiness] Onset: 01-02-2021 Episodic Other circulatory disease (11 sources) Elevated blood pressure; Translations: [Elevated blood-pressure reading, without diagnosis of hypertension] Onset: 11-02-2023 Resolved: 04-11-2024 02-11-2024 Episodic Other hematologic conditions (11 sources) Red blood cell count raised; Translations: [Other abnormality of red blood cells] Onset: 02-11-2024 02-11-2024 Episodic Other lower respiratory disease (3 sources) Shortness of breath; Translations: [Shortness of breath] Onset: 11-02-2023 Episodic Other lower respiratory disease (13 sources) Snoring; Translations: [Snoring] Onset: 11-02-2023 02-11-2024 Episodic Other lower respiratory disease (11 sources) Dyspnea; Translations: [Shortness of breath] Onset: 11-02-2023 02-11-2024 Episodic Other skin disorders (3 sources) Follicular disorder, unspecified; Translations: [Follicular disorder, unspecified] Onset: 03-02-2023 Episodic Other upper respiratory disease (13 sources) Deviated nasal septum; Translations: [Deviated nasal septum] Onset: 11-02-2023 02-11-2024 Episodic Residual codes; unclassified (1 source) Procedure not done; Translations: [Procedure and treatment not carried out due to patient leaving prior to being seen by health care provider] Onset: 01-06-2021 11-02-2023 Episodic Syncope (16 sources) Near syncope; Translations: [Syncope and collapse] Onset: 02-11-2024 12-25-2023 Episodic Unclassified (1 source) Onset: 12-06-2023 12-06-2023 Results Test Name Value Interpretation Reference Range Facility BASIC METABOLIC PANEL 01-28 BUN/CREATININE RATIO SEE NOTE: Normal 6-22 [facility] Comment on above: Result Comment: Not Reported: BUN and Creatinine are within reference range. Performed By: #### 1 0584 #### [facility], [address] [place] [phone] Engineer And Geologist: Herminia Kern MD,PhD,JOVON #### [id number], 8151 #### [facility] [address] [place] [address] Engineer And Geologist: Cielo Villasenor Calcium [Mass/Vol] 9.4 mg/dL Normal 8.6-10.3 [facility] Comment on above: Performed By: #### 1 0584 #### [facility], [address] [place] [address] Engineer And Geologist: Herminia Kern MD,PhD,JOVON #### 32626, 5017 #### [facility] [address] [place] [phone] Engineer And Geologist: Cielo Villasenor Chloride [Moles/Vol] 104 mmol/L Normal 98-110 [facility] Comment on above: Performed By: #### 1 0584 #### [facility], [address] [place] [address] Engineer And Geologist: Herminia Kern MD,PhD,JOVON #### 25044, 2427 #### [place] [address] Engineer And Geologist: iCelo Villasenor CO2 [Moles/Vol] 29 mmol/L Normal 20-32 [facility] Comment on above: Performed By: #### 1 0143 #### [facility] [address] Engineer And Geologist: Herminia Kern MD,PhD,JOVON #### 72321, 1798 #### [place] [address] Engineer And Geologist: Cielo Villasenor Creatinine [Mass/Vol] 1.16 mg/dL Normal 0.60-1.[address] [facility] Comment on above: Performed By: #### 1 4506 #### [facility] [address] Engineer And Geologist: Herminia Kern MD,PhD,JOVON #### 82240, 6270 #### [place] [address] Engineer And Geologist: Cielo Quinteroi GFR/1.73 sq M.predicted among non-blacks MDRD (S/P/Bld) [Vol rate/Area] 89 mL/min/{1.73_m2} Normal > OR = 60 [facility] Comment on above: Performed By: #### 1 8214 #### [facility] [address] Engineer And Geologist: Herminia Kern MD,PhD,JOVON #### 45430, 6319 #### [facility] [address] Engineer And Geologist: Cielo Guillermo Flati Glucose [Mass/Vol] 90 mg/dL Normal 65-99 [facility] Comment on above: Result Comment: Fasting reference interval Performed By: #### 1 0584 #### [facility], [address] [place] [address] Engineer And Geologist: Herminia Kern MD,PhD,JOVON #### 14027, 6630 #### [facility] [address] [place] [address] Engineer And Geologist: Cielo Quinteroi Potassium [Moles/Vol] 3.9 mmol/L Normal 3.5-5.3 [facility] Comment on above: Performed By: #### 1 0598 #### [facility]/[address] [address] Engineer And Geologist: Herminia Kern MD,PhD,JOVON #### 67756, 9791 #### [facility] [place] [address] Engineer And Geologist: Cielo Guillermo Flati Sodium [Moles/Vol] 139 mmol/L Normal 135-146 [facility] Comment on above: Performed By: #### 1 4588 #### [facility]/[address] [address] Engineer And Geologist: Herminia Kern MD,PhD,JOVON #### 19556, 6090 #### [facility]-[address] [address] Engineer And Geologist: Cielo Villasenor Urea nitrogen [Mass/Vol] 17 mg/dL Normal 7-25 [facility] Comment on above: Performed By: #### 1 6547 #### [facility]/[address] [address] Engineer And Geologist: Hermiina Kern MD,PhD,JOVON #### 74126, 2272 #### [facility] [address] Engineer And Geologist: Cielo Villasenor CBC (INCLUDES DIFF/PLT)on Basophils (Bld) [#/Vol] 0.05 10*3/uL Normal 0-200 [facility] Comment on above: Performed By: #### 1 2884 #### [facility], [address] [place] [address] Engineer And Geologist: Herminia Kern MD,PhD,JOVON #### 16283, 2714 #### [facility] [address] [place] [address] Engineer And Geologist: Cielo Villasenor Basophils/100 WBC (Bld) 1.0 % Normal [facility] Comment on above: Performed By: #### 1 0578 #### [facility], [address] [place] [address] Engineer And Geologist: Herminia Kern MD,PhD,JOVON #### 43614, 5858 #### [facility]-[address] [address] Engineer And Geologist: Cielo Villasenor COMMENT(S) Normal [facility] Comment on above: Result Comment: Revi ew of peripheral smear confirms automated results. Performed By: #### 1 6799 #### [facility]/[place] [address] Engineer And Geologist: Herminia Kern MD,PhD,JOVON #### 35580, 5774 #### [facility]-[address] [address] Engineer And Geologist: Cielo Villasenor Eosinophils (Bld) [#/Vol] 0.11 10*3/uL Normal 15-500 [facility] Comment on above: Performed By: #### 1 7560 #### [facility], [address] [place] [address] Engineer And Geologist: Herminia Kern MD,PhD,JOVON #### 09487, 6425 #### [facility]-[place] [phone] Engineer And Geologist: Cielo Villasenor Eosinophils/100 WBC (Bld) 2.2 % Normal [facility] Comment on above: Performed By: #### 1 9084 #### [facility] [address] Engineer And Geologist: Herminia Kern MD,PhD,JOVON #### 34484, 9053 #### [facility]-[address] Engineer And Geologist: Cielo Villasenor Erythrocyte distribution width (RBC) [Ratio] 14.1 % Normal 11.0-15.0 [facility] Comment on above: Performed By: #### 1 7890 #### [facility] [address] Engineer And Geologist: Herminia Kern MD,PhD,JOVON #### 18767, 8811 #### [facility]-[address] Engineer And Geologist: Cielo Villasenor Hematocrit (Bld) [Volume fraction] 55.4 % High 38.5-50.0 [facility] Comment on above: Performed By: #### 1 0924 #### [facility] [address] Engineer And Geologist: Herminia Kern MD,PhD,JOVON #### 57162, 9716 #### [facility] [phone] Engineer And Geologist: Cielo Villasenor Hemoglobin (Bld) [Mass/Vol] 19.0 g/dL High 13.2-17.1 [facility] Comment on above: Result Comment: Veri fied by repeat analysis. Performed By: #### 1 0584 #### [facility], [facility] [place] [address] Engineer And Geologist: Herminia Kern MD,PhD,JOVON #### 64567, 7380 #### [facility] [address] [place] [address] Engineer And Geologist: Cielo Villasenor Lymphocytes (Bld) [#/Vol] 1.525 10*3/uL Normal 850-3900 [facility] Comment on above: Performed By: #### 1 0584 #### [facility], [address] [place] [address] Engineer And Geologist: Herminia Kern MD,PhD,JOVON #### 39556, 1047 #### [facility]-[address] [address] Engineer And Geologist: Cielo Villasenor Lymphocytes/100 WBC (Bld) 30.5 % Normal [facility] Comment on above: Performed By: #### 1 0584 #### [facility], [address] [place] [address] Engineer And Geologist: Herminia Kern MD,PhD,JOVON #### 95748, 5425 #### [facility]-[address] [address] Engineer And Geologist: Cielo Villasenor MCH (RBC) [Entitic mass] 31.8 pg Normal 27.0-33.0 [facility] Comment on above: Performed By: #### 1 6144 #### [facility], [address] [place] [address] Engineer And Geologist: Herminia Kern MD,PhD,JOVON #### 18351, 9503 #### [facility]-[address] [address] Engineer And Geologist: Cielo Villasenor MCHC (RBC) [Mass/Vol] 34.3 g/dL Normal 32.0-36.[address] [facility] Comment on above: Result Comment: For adults, a slight decrease in the calculated MCHC value (in the range of 30 to 32 g/dL) is most likely not clinically significant; however, it should be interpreted with caution in correlation with other red cell parameters and the patient's clinical condition. Performed By: #### 1 5584 #### [facility], [address] [place], [place] [address] Engineer And Geologist: Herminia Kern MD,PhD,JOVON #### 32699, 8376 #### [facility] [phone] Engineer And Geologist: Cielo Villasenor MCV (RBC) [Entitic vol] 92.8 fL Normal 80.0-100.0 [facility] Comment on above: Performed By: #### 1 0569 #### [facility]/[place] [phone] Engineer And Geologist: Herminia Kern MD,PhD,JOVON #### 54719, 3811 #### [facility] [place] [phone] Engineer And Geologist: Cielo Villasenor Monocytes (Bld) [#/Vol] 0.665 10*3/uL Normal 200-950 [facility] Comment on above: Performed By: #### 1 6017 #### [facility]/[address] [address] Engineer And Geologist: Herminia Kern MD,PhD,JOVON #### 50826, 6563 #### [facility] [address] Engineer And Geologist: Cielo Villasenor Monocytes/100 WBC (Bld) 13.3 % Normal [facility] Comment on above: Performed By: #### 1 8098 #### [facility], [address] [place], [place] [address] Engineer And Geologist: Herminia Kern MD,PhD,JOVON #### 75249, 5427 #### [facility]-[address] [address] Engineer And Geologist: Cielo Villasenor Neutrophils (Bld) [#/Vol] 2.65 10*3/uL Normal 0908-7396 [facility] Comment on above: Performed By: #### 1 0584 #### [facility], [address] [place], [place] [address] Engineer And Geologist: Herminia Kern MD,PhD,JOVON #### 95474, 3199 #### [facility] [phone] Engineer And Geologist: Cielo Villasenor Neutrophils/100 WBC (Bld) 53.0 % Normal [facility] Comment on above: Performed By: #### 1 0584 #### [facility], [address] [place], [place] [address] Engineer And Geologist: Herminia Kern MD,PhD,JOVON #### 63773, 2777 #### [facility]-[address] [address] Engineer And Geologist: Cielo Villasenor Platelet mean volume (Bld) [Entitic vol] 10.2 fL Normal 7.5-12.5 [facility] Comment on above: Performed By: #### 1 0584 #### [facility], [address] [place], [place] [address] Engineer And Geologist: Herminia Kern MD,PhD,JOVON #### 92145, 2625 #### [facility]-[address] [address] Engineer And Geologist: Cielo Villasenor Platelets (Bld) [#/Vol] 186 10*3/uL Normal 140-400 [facility] Comment on above: Performed By: #### 1 0584 #### [facility], [address] [place], [place] [address] Engineer And Geologist: Herminia Kern MD,PhD,JOVON #### 40438, 1099 #### [facility] [place] [address] Engineer And Geologist: Cielo Villasenor RBC (Bld) [#/Vol] 5.97 10*6/uL High 4.20-5.80 [facility] Comment on above: Performed By: #### 1 0584 #### [facility]/[place] [id number] Engineer And Geologist: Herminia Kern MD,PhD,JOVON #### 04372, 8499 #### [facility]-[place] [address] Engineer And Geologist: Cielo Villasenor WBC (Bld) [#/Vol] 5.0 10*3/uL Normal 3.8-10.8 [facility] Comment on above: Performed By: #### 1 6882 #### [facility]/[place] [id number] Engineer And Geologist: Herminia Kern MD,PhD,JOVON #### 79390, 1459 #### [facility]-[address] Engineer And Geologist: Cielo Villasenor GAD65, IA-2, AND INSULIN AUT [facility] 02-24-2024 GLUTAMIC ACID DECARBOXYLASE 65 AB <5 Normal <5 [facility] Comment on above: Order Comment: FASTI NG:YES FASTING: YES Result Comment: This test was performed using the GAD65 KEAGAN method which is standardized against the International reference preparation 97/550. Performed By: #### 1 9453 #### [facility], [address] [place], [place] [id number] Engineer And Geologist: Herminia Kern MD,PhD,JOVON #### 20435, 5161 #### [facility] [phone] Engineer And Geologist: Cielo Villasenor IA-2 ANTIBODY <5.4 Normal <5.4 [facility] Comment on above: Order Comment: FASTI NG:YES FASTING: YES Result Comment: This test was performed using the IA-2 Antibody KEAGAN method which is standardized against the WHO Reference Reagent 97/550. The reference range reported was established specifically for this test method. Performed By: #### 1 0518 #### [facility]/[address] Engineer And Geologist: Herminia Kern MD,PhD,JOVON #### 32487, 5699 #### [facility] [phone] Engineer And Geologist: Cielo Villasenor INSULIN AUTOANTIBODY <0.4 Normal <0.4 [facility] Comment on above: Order Comment: FASTI NG:YES FASTING: YES Performed By: #### 1 0594 #### [facility]/[address] Engineer And Geologist: Herminia Kern MD,PhD,JOVON #### 32291, 5847 #### [facility] [place] [phone] Engineer And Geologist: Cielo Villasenor Activated partial thrombopla stin time (aPTT) in platelet poor plasma by coagulation aOrdered By: Feli Irizarry on 12-25-2023 aPTT Coag (PPP) [Time] 28.5 s 25.1-36.5 [facility] Comment on above: A hematocrit value g reater than 55% may lead to inaccurate results in coagulation testing. Patients having hematocrit values >55% require a special collection tube for coagulation studies. Please contact the laboratory at [phone] for redraw instructions. Automated basophil %Ordered By: Feli Irizarry on 12-25-2023 Basophils/100 WBC (Bld) 0.6 % Normal . [facility] Comment on above: Performed By: #### P T, HS TROP, TSH3, CK, PTT, BNP, SCAN CBC, CBC, BMP #### [address] Automated basophil countOrde red By: Feli Irizarry on 12-25-2023 Basophils (Bld) [#/Vol] 0.0 10*3/uL Normal 0.0-0.2 [facility] Comment on above: Result Comment: PERF ORMED BY: [place] [id number] PATHOLOGIST SHALE MINER BLASTING RICO YANG M.D. Performed By: #### P T, HS TROP, TSH3, CK, PTT, BNP, SCAN CBC, CBC, BMP #### [address] Automated blood monocyte cou ntOrdered By: Feli Irizarry on 12-25-2023 Monocytes (Bld) [#/Vol] 0.6 10*3/uL Normal 0.0-0.8 [facility] Comment on above: Performed By: #### P T, HS TROP, TSH3, CK, PTT, BNP, SCAN CBC, CBC, BMP #### [address] Automated eosinophil %Ordere d By: Feli Irizarry on 12-25-2023 Eosinophils/100 WBC (Bld) 1.1 % Normal . [facility] Comment on above: Performed By: #### P T, HS TROP, TSH3, CK, PTT, BNP, SCAN CBC, CBC, BMP #### [address] Automated eosinophil countOr dered By: Feli Irizarry on 12-25-2023 Eosinophils (Bld) [#/Vol] 0.1 10*3/uL Normal 0.0-0.45 [facility] Comment on above: Performed By: #### P T, HS TROP, TSH3, CK, PTT, BNP, SCAN CBC, CBC, BMP #### [address] Automated monocyte %Ordered By: Feli Irizarry on 12-25-2023 Monocytes/100 WBC (Bld) 8.9 % Normal . [facility] Comment on above: Performed By: #### P T, HS TROP, TSH3, CK, PTT, BNP, SCAN CBC, CBC, BMP #### [address] Automated neutrophil %Ordere d By: Feli Irizarry on 12-25-2023 Neutrophils/100 WBC (Bld) 67.9 % Normal . [facility] Comment on above: Performed By: #### P T, HS TROP, TSH3, CK, PTT, BNP, SCAN CBC, CBC, BMP #### [address] BNP ser/plasOrdered By: Feli Irizarry on 12-25-2023 Natriuretic peptide B (Bld) [Mass/Vol] 8.0 pg/mL Normal 5-100 [facility] Comment on above: Result Comment: PERF ORMED BY: [place] [id number] PATHOLOGIST SHALE MINER BLASTING RICO YANG M.D. Performed By: #### P T, HS TROP, TSH3, CK, PTT, BNP, SCAN CBC, CBC, BMP #### [address] Basic Metabolic Panelon 11-28 Creatinine Clr Calc Pharmacy 111.21 Normal [facility] Comment on above: Performed By: #### P T, HS TROP, TSH3, CK, PTT, BNP, SCAN CBC, CBC, BMP #### [address] GFR/1.73 sq M.predicted MDRD (S/P/Bld) [Vol rate/Area] mL/min/{1.73_m2} Normal [facility] Comment on above: Performed By: #### P T, HS TROP, TSH3, CK, PTT, BNP, SCAN CBC, CBC, BMP #### [facility] [address] [place] [address] [facility] CT angio headon 12-25-[facility]23 CT angio head [facility] Main [place] [address] [place] [id number] Scan Report Signed Patient: Elvin Camilo MR#: [id number] : 1995 Acct:[id number] Age/Sex: 28 / M ADM Date: 12/25/23 Loc: ER Room: Type: [facility] ER Attending Dr: Copies to: Feli Irizarry DO Ordering Provider: Feli Irizarry DO Date of Service: 12/25/23 CT/CT angio head: f ([id number]) CT/CT angio chest: f ([id number]) CT/CT angio neck: f ([id number]) CT/CT head/brain wo con: f Unenhanced head CT TECHNIQUE: Contiguous axial imaging of the head. The CT exam was performed using one or more the following dose reduction techniques: Automated exposure control, adjustment of the MA and/or Kv according to patient size, or use of the iterative reconstruction technique. COMPARISON: None HISTORY: Shortness of breath. Visual changes. VENTRICLES: Within normal limits ATROPHY: None BRAIN PARENCHYMA: Adequate leigh-white matter differentiation identified. HEMORRHAGE: None HERNIATION: No mass effect or herniation INFARCTION: No recent vascular distribution infarction is seen. EXTRA-AXIAL FLUID COLLECTIONS None MIDBRAIN: Unremarkable JUSTIN: Unremarkable MEDULLA: Unremarkable SINUSES: Unremarkable ORBITS: Grossly unremarkable MASTOIDS: Unremarkable BONY STRUCTURES Intact ADDITIONAL FINDINGS: CT/CT head/brain wo con IMPRESSION: No acute findings. CTA Head and Neck TECHNIQUE: Axial imaging of the head and neck with 2-D and 3-D reconstruction. 75+72cc of Isovue- 370. The CT exam was performed using one or more the following dose reduction techniques: Automated exposure control, adjustment of the MA and/or Kv according to patient size, or use of the iterative reconstruction technique. Stenoses were measured using the NASCET criteria. COMPARISON: None HISTORY: The visualized aortic arch and great vessels are unremarkable. Subclavian arteries are patent No carotid dissection, critical stenosis or occlusion identified. No vertebral dissection, occlusion or abrupt cut off identified. The carotid siphons and vertebral basilar systems are patent. No intracranial aneurysm, dissection, abrupt cut off or critical stenosis identified.. . IMPRESSION: No occlusion, critical stenosis or dissection of the extracranial or intracranial circulation. CTA Chest TECHNIQUE: Axial imaging with 2-D and 3-D reconstruction. 75 + 72cc of Isovue-[address] exam was performed using one or more the following dose reduction techniques: Automated exposure control, adjustment of the MA and/or Kv according to patient size, or use of the iterative reconstruction technique. COMPARISON: None THYROID: Unremarkable TRACHEA AND BRONCHI: Patent ESOPHAGUS: Unremarkable. HEART: Within normal limits PERICARDIAL EFFUSION: None CORONARY ARTERY CALCIFICATION: None MEDIASTINUM: No adenopathy. No pneumoperitoneum. No mediastinal hematoma. PULMONARY MIHAEAL: No hilar mass or adenopathy is seen. THORACIC AORTA Unremarkable PULMONARY EMBOLUS: None LUNG NODULE None LUNGS: Lungs are clear PLEURAL EFFUSION: None PNEUMOTHORAX: No pneumothorax seen. CHEST WALL: No abnormality AXILLA: Unremarkable BONY STRUCTURES Intact UPPER ABDOMEN: Images of the upper abdomen are noncontributory. IMPRESSION: No aortic aneurysm or dissection. No acute findings. Impression dictated by: Leeroy Orantes M.D.12/25/2023 6:29 PM Dictation Location: [place] [address] Transcribed By: [facility] 12/25/231828 Dictated By: Leeroy Orantes DO 12/25/231821 Signed By: 12/25/231828 Normal [facility] Calcium [Mass/volume] in Ser um or PlasmaOrdered By: Feli Irizarry on 12-25-2023 Calcium [Mass/Vol] 9.5 mg/dL Normal 8.6-10.3 [facility] Comment on above: Performed By: #### P T, HS TROP, TSH3, CK, PTT, BNP, SCAN CBC, CBC, BMP #### [facility] [address] [place] [address] Carbon dioxide, total [Moles /volume] in Serum or PlasmaOrdered By: Feli Irizarry on 12-25-2023 CO2 [Moles/Vol] 24.6 mmol/L Normal 21.0-31.0 [facility] Comment on above: Performed By: #### P T, HS TROP, TSH3, CK, PTT, BNP, SCAN CBC, CBC, BMP #### [facility] [address] Chloride [Moles/volume] in S maximo or PlasmaOrdered By: Feli Irizarry on 12-25-2023 Chloride [Moles/Vol] 105 mmol/L Normal 98-[address] [facility] Comment on above: Performed By: #### P T, HS TROP, TSH3, CK, PTT, BNP, SCAN CBC, CBC, BMP #### [facility] [address] Complete Blood Count Auto Di ffon 12-25-2023 Mean Corpuscular HGB Conc 35.1 g/dL Normal 32.5-35.6 [facility] Comment on above: Performed By: #### P T, HS TROP, TSH3, CK, PTT, BNP, SCAN CBC, CBC, BMP #### [address] NRBC% 0.4 /100{WBC} Normal 0-0.5 [facility] Comment on above: Performed By: #### P T, HS TROP, TSH3, CK, PTT, BNP, SCAN CBC, CBC, BMP #### [address] Creatine kinase [Enzymatic a ctivity/volume] in Serum or PlasmaOrdered By: Feli Irizarry on 12-25-2023 CK [Catalytic activity/Vol] 356 U/L High 30-223 [facility] Comment on above: Performed By: #### P T, HS TROP, TSH3, CK, PTT, BNP, SCAN CBC, CBC, BMP #### [address] Creatinine [Mass/volume] in Serum or PlasmaOrdered By: Feli Irizarry on 12-25-2023 Creatinine [Mass/Vol] 1.16 mg/dL Normal 0.70-1.30 [facility] Comment on above: Performed By: #### P T, HS TROP, TSH3, CK, PTT, BNP, SCAN CBC, CBC, BMP #### [address] ECG 12 lead ECGon 12-25-2023 ECG 12 lead ECG [facility] [place] [address] [place] [address] Electrocardiograph Report Signed Patient: Elvin Camilo MR#: [id number] : 1995 Acct:[id number] Age/Sex: 28 / M ADM Date: 12/25/23 Loc: ER Room: Type: [facility] ER Attending Dr: Ordering Provider: Feli Irizarry DO Date of Service: 12/25/23 ECG/ECG 12 lead ECG: Shortness of Breath/Dyspnea Copies to: Test Reason : Blood Pressure : 174/88 mmHG Vent. Rate : 69 BPM Atrial Rate : 69 BPM P-R Int : 168 ms QRS Dur : 118 ms QT Int : 428 ms P-R-T Axes : 45 129 45 degrees QTcB Int : 458 ms Normal sinus rhythm Right axis deviation Nonspecific intraventricular conduction delay Abnormal ECG No previous ECGs available Confirmed by FELI IRIZARRY DO ([id number]) on 12/26/2023 2:02:12 AM Referred By: Electronically Signed By: FELI IRIZARRY DO Transcribed By: MUS Signed By Feli Irizarry DO 12/25 0202 Normal [facility] Erythrocyte distribution wid th [Ratio] by Automated countOrdered By: Feli Irizarry on 12-25-2023 Erythrocyte distribution width (RBC) [Ratio] 13.0 % Normal 12.0-14.8 [facility] Comment on above: Performed By: #### P T, HS TROP, TSH3, CK, PTT, BNP, SCAN CBC, CBC, BMP #### [facility] [address] [place], [place] [address] [place] Erythrocytes [#/volume] in B lood by Automated countOrdered By: Feli Irizarry on 12-25-2023 RBC (Bld) [#/Vol] 5.89 10*6/uL High 3.90-5.60 [facility] Comment on above: Performed By: #### P T, HS TROP, TSH3, CK, PTT, BNP, SCAN CBC, CBC, BMP #### [facility] [address] [place], [place] [id number] [place] Glucose [Mass/volume] in Ser um or PlasmaOrdered By: Feli Irizarry on 12-25-2023 Glucose [Mass/Vol] 64 mg/dL Low 70-100 [facility] Comment on above: ADA recommended refe rence rangeRandom Glucose Reference Range is dependent on time and content of last meal. Glucose of more than 200 mg/dL in a nonstressed, ambulatory subject supports the diagnosis of Diabetes Mellitus. Result Comment: [place] om Glucose Reference Range is dependent on time and content of last meal. Glucose of more than 200 mg/dL in a nonstressed, ambulatory subject supports the diagnosis of Diabetes Mellitus. ADA recommended reference range Performed By: #### P T, HS TROP, TSH3, CK, PTT, BNP, SCAN CBC, CBC, BMP #### [facility] [address] Hematocrit [Volume Fraction] of Blood by Automated countOrdered By: Feli Irizarry on 12-25-2023 Hematocrit (Bld) [Volume fraction] 53.4 % High 38.8-50.0 [facility] Comment on above: Performed By: #### P T, HS TROP, TSH3, CK, PTT, BNP, SCAN CBC, CBC, BMP #### [facility] [address] Hemoglobin [Mass/volume] in BloodOrdered By: Feli Irizarry on 12-25-2023 Hemoglobin (Bld) [Mass/Vol] 18.8 g/dL High 13.0-17.0 [facility] Comment on above: Performed By: #### P T, HS TROP, TSH3, CK, PTT, BNP, SCAN CBC, CBC, BMP #### [facility] [address] INR in Platelet poor plasma by Coagulation assayOrdered By: Feli Irizarry on 12-25-2023 INR Coag (PPP) [Relative time] 1.2 {INR} Normal [facility] Comment on above: INR Therapeutic Rang e A) Pre- and Peroperative OAT started two weeks before surgery. NOT HIP SURGERY: 1.5 - 2.5 HIP SURGERY: 2 - 3B) Primary and secondary prevention of venous THROMBOSIS: 2 - 3C) Active venous thrombosis, pulmonary embolismand prevention of recurrent venous thrombosis: 2 - 3D) Prevention of arterial thromboembolismincluding patients with mechanical heart valves: 3 - 4.5 Result Comment: INR Therapeutic Range A) Pre- and Peroperative OAT started two weeks before surgery. NOT HIP SURGERY: 1.5 - 2.5 HIP SURGERY: 2 - 3 B) Primary and secondary prevention of venous THROMBOSIS: 2 - 3 C) Active venous thrombosis, pulmonary embolism and prevention of recurrent venous thrombosis: 2 - 3 D) Prevention of arterial thromboembolism including patients with mechanical heart valves: 3 - 4.5 Performed By: #### P T, HS TROP, TSH3, CK, PTT, BNP, SCAN CBC, CBC, BMP #### [facility] [address] [place] [address] [place] Leukocytes [#/volume] correc justin for nucleated erythrocytes in Blood by Automated counOrdered By: Feli Irizarry on 12-25-2023 WBC corrected for nucl RBC Auto (Bld) [#/Vol] 6.8 10*3/uL 4.1-10.5 [facility] Leukocytes [#/volume] in Blo od by Automated countOrdered By: Feli Irizarry on 12-25-2023 WBC (Bld) [#/Vol] 6.8 10*3/uL Normal 4.1-10.5 [facility] Comment on above: Performed By: #### P T, HS TROP, TSH3, CK, PTT, BNP, SCAN CBC, CBC, BMP #### [facility] [address] [place] [address] [place] Lymphocytes [#/volume] in Bl ood by Automated countOrdered By: Feli Irizarry on 12-25-2023 Lymphocytes (Bld) [#/Vol] 1.5 10*3/uL Normal 1.00-4.8 [facility] Comment on above: Performed By: #### P T, HS TROP, TSH3, CK, PTT, BNP, SCAN CBC, CBC, BMP #### [facility] [address] [place] [address] [place] Lymphocytes/100 leukocytes i n Blood by Automated countOrdered By: Feli Irizarry on 12-25-2023 Lymphocytes/100 WBC (Bld) 21.5 % Normal . [facility] Comment on above: Performed By: #### P T, HS TROP, TSH3, CK, PTT, BNP, SCAN CBC, CBC, BMP #### [facility] [address] MCH [Entitic mass] by Automa justin countOrdered By: Feli Irizarry on 12-25-2023 MCH (RBC) [Entitic mass] 31.8 pg Normal 27.5-35.2 [facility] Comment on above: Performed By: #### P T, HS TROP, TSH3, CK, PTT, BNP, SCAN CBC, CBC, BMP #### [facility] [address] MCHC Auto (RBC) [Mass/Vol]Or dered By: Feli Irizarry on 12-25-2023 MCHC (RBC) [Mass/Vol] 35.1 g/dL 32.5-35.6 [facility] MCV [Entitic volume] by Auto mated countOrdered By: Feli Irizarry on 12-25-2023 MCV (RBC) [Entitic vol] 90.7 fL Normal 83.5-101 [facility] Comment on above: Performed By: #### P T, HS TROP, TSH3, CK, PTT, BNP, SCAN CBC, CBC, BMP #### [address] Monocyte distribution width [Entitic volume] in Blood by AutomatedOrdered By: Feli Irizarry on 12-25-2023 Monocyte distribution width Auto (Bld) [Entitic vol] 16.46 % 0.00-20.00 [facility] Neutrophils [#/volume] in Bl ood by Automated countOrdered By: Feli Irizarry on 12-25-2023 Neutrophils (Bld) [#/Vol] 4.6 10*3/uL Normal 1.8-7.7 [facility] Comment on above: Performed By: #### P T, HS TROP, TSH3, CK, PTT, BNP, SCAN CBC, CBC, BMP #### [address] No Panel InformationOrdered By: Feli Irizarry on 12-25-2023 Estimated GFR (CKD-EPI) > 60.0 mL/Min [facility] Creatinine Clearance (Chem 111.21 [facility] Nucleated erythrocytes [Pres ence] in Blood by Automated countOrdered By: Feli Irizarry on 12-25-2023 Nucleated RBC Auto Ql (Bld) 0.4 /100{WBC} 0-0.5 [facility] Partial Thromboplastin Timeo n 12-25-2023 aPTT Coag (Bld) [Time] 28.5 s Normal 25.1-36.5 [facility] Comment on above: Result Comment: A he matocrit value greater than 55% may lead to inaccurate results in coagulation testing. Patients having hematocrit values >55% require a special collection tube for coagulation studies. Please contact the laboratory at [phone] for redraw instructions. PERFORMED BY: [place] [id number] PATHOLOGIST SHALE MINER BLASTING RICO YANG M.D. Performed By: #### P T, HS TROP, TSH3, CK, PTT, BNP, SCAN CBC, CBC, BMP #### [facility] [address] [place] [address] [place] Platelet adequacy [Presence] in Blood by Light microscopyOrdered By: Feli Irizarry on 12-25-2023 Platelets LM Ql (Bld) Normal Normal Fir [facility] Platelet mean volume [Entiti c volume] in Blood by Automated countOrdered By: Feli Irizarry on 12-25-2023 Platelet mean volume (Bld) [Entitic vol] 8.2 fL Normal 6.6-10.1 [facility] Comment on above: Performed By: #### P T, HS TROP, TSH3, CK, PTT, BNP, SCAN CBC, CBC, BMP #### [facility] [address] [place] [address] [place] Platelet morphology finding [Identifier] in BloodOrdered By: Feli Irizarry on 12-25-2023 Platelet morphology finding Nom (Bld) Normal Normal [facility] Platelets [#/volume] in Bloo d by Automated countOrdered By: Feli Irizarry on 12-25-2023 Platelets (Bld) [#/Vol] 225 10*3/uL Normal 150-450 [facility] Comment on above: Performed By: #### P T, HS TROP, TSH3, CK, PTT, BNP, SCAN CBC, CBC, BMP #### [facility] [address] Potassium [Moles/volume] in Serum or PlasmaOrdered By: Feli Irizarry on 12-25-2023 Potassium [Moles/Vol] 3.8 mmol/L Normal 3.5-5.1 [facility] Comment on above: Hemolysis is present at a level that could interfere with the result.Contact lab if redraw is required Result Comment: Hemo lysis is present at a level that could interfere with the result. Contact lab if redraw is required Performed By: #### P T, HS TROP, TSH3, CK, PTT, BNP, SCAN CBC, CBC, BMP #### [facility] [address] Prothrombin time (PT)Ordered By: Feli Irizarry on 12-25-2023 PT Coag (PPP) [Time] 14.1 s High 9.0-12.[address] [facility] Comment on above: A hematocrit value g reater than 55% may lead to inaccurate results in coagulation testing. Patients having hematocrit values >55% require a special collection tube for coagulation studies. Please contact the laboratory at [phone] for redraw instructions. Result Comment: A he matocrit value greater than 55% may lead to inaccurate results in coagulation testing. Patients having hematocrit values >55% require a special collection tube for coagulation studies. Please contact the laboratory at [phone] for redraw instructions. Performed By: #### P T, HS TROP, TSH3, CK, PTT, BNP, SCAN CBC, CBC, BMP #### [facility] [address] [place] [id number] [place] RBC morphologyOrdered By: Silverio Irizarry on 12-25-2023 RBC morphology finding Nom (Bld) Normal Normal Normal [facility] Comment on above: Performed By: #### P T, HS TROP, TSH3, CK, PTT, BNP, SCAN CBC, CBC, BMP #### [facility] [address] Scan and CBCon 12-25-2023 Monocytes/100 WBC (Bld) 16.46 % Normal 0.00-20.00 [facility] Comment on above: Performed By: #### P T, HS TROP, TSH3, CK, PTT, BNP, SCAN CBC, CBC, BMP #### [address] Platelet Estimate Normal Normal Normal [facility] Comment on above: Performed By: #### P T, HS TROP, TSH3, CK, PTT, BNP, SCAN CBC, CBC, BMP #### [address] Platelet Morphology Normal Normal Normal [facility] Comment on above: Result Comment: PERF ORMED BY: [place] [id number] PATHOLOGIST SHALE MINER BLASTING RICO YANG M.D. Performed By: #### P T, HS TROP, TSH3, CK, PTT, BNP, SCAN CBC, CBC, BMP #### [address] Serum or plasma anion gap de terminationOrdered By: Feli Irizarry on 12-25-2023 Anion gap [Moles/Vol] 13.2 mmol/L Normal 6.0-15.0 [facility] Comment on above: Performed By: #### P T, HS TROP, TSH3, CK, PTT, BNP, SCAN CBC, CBC, BMP #### [address] Sodium [Moles/volume] in Ser um or PlasmaOrdered By: Feli Irizarry on 12-25-2023 Sodium [Moles/Vol] 139 mmol/L Normal 136-145 [facility] Comment on above: Performed By: #### P T, HS TROP, TSH3, CK, PTT, BNP, SCAN CBC, CBC, BMP #### [address] Thyrotropin [Units/volume] i n Serum or PlasmaOrdered By: Feli Irizarry on 12-25-2023 TSH Qn 3.55 m[IU]/L Normal 0.45-5.33 [facility] Comment on above: Result Comment: PERF ORMED BY: [place] [id number] PATHOLOGIST SHALE MINER BLASTING RICO YANG M.D. Performed By: #### P T, HS TROP, TSH3, CK, PTT, BNP, SCAN CBC, CBC, BMP #### [facility] [address] [place] [address] [place] Troponin I High Sensitivityo n 12-25-2023 Troponin I High Sensitivity 7.2 pg/mL Normal 0.0-20.0 [facility] Comment on above: Order Comment: Comme nt repeat Result Comment: PERF ORMED BY: [place] [id number] PATHOLOGIST SHALE MINER BLASTING RICO YANG M.D. Performed By: #### H S TROP #### [address] Troponin I High Sensitivity 6.1 pg/mL Normal 0.0-20.0 [facility] Comment on above: Result Comment: PERF ORMED BY: [facility] [address] [place] [address] PATHOLOGIST SHALE MINER BLASTING RICO YANG M.D. Performed By: #### P T, HS TROP, TSH3, CK, PTT, BNP, SCAN CBC, CBC, BMP #### [facility] [address] [place] [address] Troponin I.cardiac [Mass/vol ume] in Serum or Plasma by Detection limit <= 0.01 ng/Ordered By: Feli Irizarry on 12-25-2023 Troponin I.cardiac DL <= 0.01 ng/mL [Mass/Vol] 7.2 pg/mL 0.0-20.0 [facility] Urea nitrogen [Mass/volume] in Serum or PlasmaOrdered By: Feli Irizarry on 12-25-2023 Urea nitrogen [Mass/Vol] 26 mg/dL High 7 [facility] Comment on above: Performed By: #### P T, HS TROP, TSH3, CK, PTT, BNP, SCAN CBC, CBC, BMP #### [facility] [address] [place] [address] [facility] XR CHEST 2 VIEWSon XR CHEST 2 VIEWS Interpreted By: Vivek Alcala, STUDY: XR CHEST 2 VIEWS; 11/01/2023 12:08 pm INDICATION: Signs/Symptoms:Shortness of breath. COMPARISON: None. ACCESSION NUMBER(S): [id number] ORDERING CLINICIAN: BRITTANY CLAYTON FINDINGS: CARDIOMEDIASTINAL SILHOUETTE: Cardiomediastinal silhouette is normal in size and configuration. LUNGS: Lungs are clear. ABDOMEN: No remarkable upper abdominal findings. BONES: No acute osseous changes. IMPRESSION: 1. No evidence of acute cardiopulmonary process. Signed by: Vivek An 11/02/2023 6:57 AM Dictation workstation: [id number] Normal [facility] CBC W Auto Differential pane l (Bld)on 10-21-2023 Basophils (Bld) [#/Vol] 0.05 x10*3/uL Normal 0.00-0.10 [facility] Comment on above: Performed By: #### 5 7021-8 #### EMERITA GILESMOTZER L ([id number]) [facility] [address] [place] [address] Basophils/100 WBC (Bld) 0.7 % Normal 0.0-2.0 [facility] Comment on above: Performed By: #### 5 7021-8 #### EMERITA SCHMOTZER L ([id number]) [facility]) [address] [place] [address] Eosinophils (Bld) [#/Vol] 0.07 x10*3/uL Normal 0.00-0.70 [facility] Comment on above: Performed By: #### 5 7021-8 #### EMERITA SCHMOTZER L ([id number]) [facility]) [address] [place] [address] Eosinophils/100 WBC (Bld) 1.0 % Normal 0.0-6.0 [facility] Comment on above: Performed By: #### 5 7021-8 #### EMERITA SCHMOTZER L ([id number]) [facility] ([facility]) [id number] [place] [address] Erythrocyte distribution width (RBC) [Ratio] 13.0 % Normal 11.5-14.5 [facility] Comment on above: Performed By: #### 5 7021-8 #### EMERITA Farmer ([id number]) [facility] ([facility]) [id number] [place] [address] Hematocrit (Bld) [Volume fraction] 52.0 % Normal 41.0-52.0 [facility] Comment on above: Performed By: #### 5 7021-8 #### EMERITA Famrer ([id number]) [facility] ([facility]) [address] [place] [address] Hemoglobin (Bld) [Mass/Vol] 18.1 g/dL High 13.5-17.5 [facility] Comment on above: Performed By: #### 5 7021-8 #### EMERITA Farmer ([id number]) [facility] ([facility]) [address] [place] [address] Immature granulocytes (Bld) [#/Vol] 0.08 x10*3/uL Normal 0.00-0.70 [facility] Comment on above: Performed By: #### 5 7021-8 #### EMERITA Farmer ([id number]) [facility] ([facility]) [address] [place] [address] Immature granulocytes/100 WBC (Bld) 1.2 % High 0.0-0.9 [facility] Comment on above: Result Comment: Ellie ture Granulocyte Count (IG) includes promyelocytes, myelocytes and metamyelocytes but does not include bands. Percent differential counts (%) should be interpreted in the context of the absolute cell counts (cells/UL). Performed By: #### 5 7021-8 #### EMERITA Farmer ([id number]) [facility] ([facility]) [address] [place] [address] Lymphocytes (Bld) [#/Vol] 1.52 x10*3/uL Normal 1.20-4.80 [facility] Comment on above: Performed By: #### 5 7021-8 #### EMERITA Farmer ([id number]) [facility]) [address] [place] [address] Lymphocytes/100 WBC (Bld) 22.3 % Normal 13.0-44.0 [facility] Comment on above: Performed By: #### 5 7021-8 #### EMERITA Farmer ([id number]) [facility]) [address] [place] [address] MCH (RBC) [Entitic mass] 31.3 pg Normal 26.0-34.0 [facility] Comment on above: Performed By: #### 5 7021-8 #### EMERITA Farmer ([id number]) [facility]) [address] [place] [address] MCHC (RBC) [Mass/Vol] 34.8 g/dL Normal 32.0-36.0 [facility] Comment on above: Performed By: #### 5 7021-8 #### EMERITA Farmer ([id number]) [facility]) [address] [place] [address] MCV (RBC) [Entitic vol] 90 fL Normal 80-100 [facility] Comment on above: Performed By: #### 5 7021-8 #### EMERITA Farmer ([id number]) [facility]) [address] [place] [address] Monocytes (Bld) [#/Vol] 0.64 x10*3/uL Normal 0.10-1.00 [facility] Comment on above: Performed By: #### 5 7021-8 #### EMERITA Farmer ([id number]) [facility]) [address] [place] [address] Monocytes/100 WBC (Bld) 9.4 % Normal 2.0-10.0 [facility] Comment on above: Performed By: #### 5 7021-8 #### EMERITA Farmer ([id number]) [facility]) [address] [place] [address] Neutrophils (Bld) [#/Vol] 4.46 x10*3/uL Normal 1.20-7.70 [facility] Comment on above: Result Comment: Perc ent differential counts (%) should be interpreted in the context of the absolute cell counts (cells/uL). Performed By: #### 5 7021-8 #### EMERITA Farmer ([id number]) [facility] ([facility]) [id number] [place] [address] Neutrophils/100 WBC (Bld) 65.4 % Normal 40.0-80.0 [facility] Comment on above: Performed By: #### 5 7021-8 #### EMERITA Farmer ([id number]) [facility] ([facility]) [address] [place] [address] Nucleated RBC/100 WBC (Bld) [Ratio] 0.0 /100 WBCs Normal 0.0-0.0 [facility] Comment on above: Performed By: #### 5 7021-8 #### EMERITA Farmer ([id number]) [facility]) [address] [place] [address] Platelets (Bld) [#/Vol] 215 x10*3/uL Normal 150-450 [facility] Comment on above: Performed By: #### 5 7021-8 #### EMERITA Farmer ([id number]) [facility]) [id number] [place] [address] RBC (Bld) [#/Vol] 5.79 x10*6/uL Normal 4.50-5.90 [facility] Comment on above: Performed By: #### 5 7021-8 #### EMERITA Farmer ([id number]) [facility]) [id number] [place] [address] WBC (Bld) [#/Vol] 6.8 x10*3/uL Normal 4.4-11.3 [facility] Comment on above: Performed By: #### 5 7021-8 #### EMERITA Farmer ([id number]) [facility]) [id number] [place] [address] Comprehensive metabolic 2000 panelon 10-21-2023 Albumin BCP dye [Mass/Vol] 4.5 g/dL Normal 3.4-5.0 [facility] Comment on above: Performed By: #### 2 4323-8 #### EMERITA Farmer ([id number]) [facility]) [address] [place] [address] 18987 ALP [Catalytic activity/Vol] 58 U/L Normal 33-120 [facility] Comment on above: Performed By: #### 2 4323-8 #### EMERITA Farmer ([id number]) [facility] ([facility]) [address] [place] [address] 43556 ALT With P-5'-P [Catalytic activity/Vol] 26 U/L Normal 10-52 [facility] Comment on above: Result Comment: Denisse ents treated with Sulfasalazine may generate falsely decreased results for ALT. Performed By: #### 2 4323-8 #### EMERITA Farmer ([id number]) [facility] ([facility]) [address] [place] [address] 11553 Anion gap [Moles/Vol] 12 mmol/L Normal 10-20 [facility] Comment on above: Performed By: #### 2 4323-8 #### EMERITA Farmer ([id number]) [facility]) [address] [place] [address] 56842 AST With P-5'-P [Catalytic activity/Vol] 15 U/L Normal 9-39 [facility] Comment on above: Performed By: #### 2 4323-8 #### EMERITA Farmer ([id number]) [facility] ([facility]) [address] [place] [address] 65809 Bilirubin [Mass/Vol] 0.9 mg/dL Normal 0.0-1.2 [facility] Comment on above: Performed By: #### 2 4323-8 #### EMERITA CABALLERO L ([id number]) [facility] ([facility]) [address] [place] [address] Calcium [Mass/Vol] 9.3 mg/dL Normal 8.6-10.6 [facility] Comment on above: Performed By: #### 2 4323-8 #### EMERITA GILESMOMODESTOER L ([id number]) [facility] ([facility]) [address] [place] [address] Chloride [Moles/Vol] 102 mmol/L Normal 98-107 [facility] Comment on above: Performed By: #### 2 4323-8 #### EMERITA CHAVEZER L ([id number]) [facility] ([facility]) [address] [place] [address] 31989 CO2 [Moles/Vol] 30 mmol/L Normal 21-32 [facility] Comment on above: Performed By: #### 2 4323-8 #### EMERITA GILESMOMODESTOER L ([id number]) [facility]) [address] [place] [address] Creatinine [Mass/Vol] 1.18 mg/dL Normal 0.50-1.30 [facility] Comment on above: Performed By: #### 2 4323-8 #### EMERITA CHAVEZER L ([id number]) [facility]) [address] [place] [address] Glomerular filtration rate/1.73 sq M.predicted 87 mL/min/1.73m*2 Normal >60 [facility] Comment on above: Result Comment: Calc ulations of estimated GFR are performed using the 2020 CKD-EPI Study Refit equation without the race variable for the IDMS-Traceable creatinine methods. https://jasn.asnjournals.org/content/early//ASN.12768 94398 Performed By: #### 2 4323-8 #### EMERITA CABALLEROTZSILVERIO L ([id number]) [facility]) [address] [place] [address] Glucose [Mass/Vol] 55 mg/dL Low 74-99 [facility] Comment on above: Performed By: #### 2 4323-8 #### EMERITA Farmer ([id number]) [facility] ([facility]) [address] [place] [address] 15190 Potassium [Moles/Vol] 4.1 mmol/L Normal 3.5-5.3 [facility] Comment on above: Performed By: #### 2 4323-8 #### EMERITA Farmer ([id number]) [facility]) [address] [place] [address] 48821 Protein [Mass/Vol] 6.8 g/dL Normal 6.4-8.2 [facility] Comment on above: Performed By: #### 2 4323-8 #### EMERITA Farmer ([id number]) [facility]) [address] [place] [address] 04530 Sodium [Moles/Vol] 140 mmol/L Normal 136-145 [facility] Comment on above: Performed By: #### 2 4323-8 #### EMERITA Farmer ([id number]) [facility]) [address] [place] [address] 73562 Urea nitrogen [Mass/Vol] 21 mg/dL Normal 6-23 [facility] Comment on above: Performed By: #### 2 4323-8 #### EMERITA Farmer ([id number]) [facility]) [address] [place] [address] 12070 Hepatitis B virus surface Ab on 01-18-2023 HBV surface Ab Qn (S) 30.7 mIU/mL High <10.0 [facility] Comment on above: Result Comment: Inte rpretive Criteria: <10 mIU/mL Nonreactive >=10 mIU/mL Reactive Biotin interference may cause falsely decreased results. Patients taking a Biotin dose of up to 5 mg/day should refrain from taking Biotin for 24 hours before sample collection. Providers may contact their local laboratory for further information. Performed By: #### 1 6935-9 #### EMERITA Farmer ([id number]) [facility]) [address] [place] [id number] M. tuberculosis stim IFN-g a nd spot count panel (Bld)on 01-18-2023 Gamma interferon negative control spot count (Bld) [#] Passed [facility] Comment on above: Performed By: #### 7 4281-7 #### QUEST CHANTL ([id number]) [address] [place], [place] M. tuberculosis stim IFN-g Ql (Bld) [Interp] Negative [facility] Comment on above: Performed By: #### 7 4281-7 #### QUEST CHANTL ([id number]) [address] [place], [place] Mitogen stimulated gamma interferon positive control spot count (Bld) [#] Passed [facility] Comment on above: Performed By: #### 7 4281-7 #### QUEST CHANTL ([id number]) [address] [place] [address] [place] PANEL A SPOT COUNT 1 [facility] Comment on above: Performed By: #### 7 4281-7 #### QUEST CHANTL ([id number]) [address] [place] [address] [place] PANEL B SPOT COUNT o [facility] Comment on above: Performed By: #### 7 4281-7 #### QUEST CHANTL ([id number]) [address] [place] Hep Bs Abon 08-03-2018 HBV surface Ab Ql (S) Non Reactive [facility] Comment on above: Result Comment: Non Reactive: Inconsistent with immunity, less than 10 mIU/mL Reactive: Consistent with immunity, greater than 9.9 mIU/mL Performed at: [facility] [address] [place], [place] [id number] PhD Ravinder Morrow Performed By: #### 2 [id number] #### [facility] [address] [place] [address] Vital Signs Date Time Vital Sign Value Performing Clinician Facility 08-11-2024 08:28-0400 Body height 188 cm Mary Hemmer PA Work Phone: [facility] 08-11-2024 08:28-0400 Body mass index (BMI) [Ratio] 26.19 kg/m2 Mary Hemmer PA Work Phone: [facility] 08-11-2024 08:28-0400 Body weight 92.53 kg Mary Hemmer PA Work Phone: [facility] 08-11-2024 08:28-0400 Diastolic blood pressure 68 mm[Hg] Mary Hemmer PA Work Phone: [facility] 08-11-2024 08:28-0400 Heart rate 66 /min Mary Hemmer PA Work Phone: [facility] 08-11-2024 08:28-0400 SaO2% (BldA) [Mass fraction] 98 % Mary Hemmer PA Work Phone: [facility] 08-11-2024 08:28-0400 Systolic blood pressure 112 mm[Hg] Mary Hemmer PA Work Phone: [facility] 04-11-2024 09:32-0500 Body height 188 cm Mary Hemmer PA Work Phone: [facility] 04-11-2024 09:32-0500 Body mass index (BMI) [Ratio] 26.55 kg/m2 Mary Hemmer PA Work Phone: [facility] 04-11-2024 09:32-0500 Body weight 93.8 kg Mary Hemmer PA Work Phone: [facility] 04-11-2024 09:32-0500 Diastolic blood pressure 84 mm[Hg] Mary Hemmer PA Work Phone: [facility] 04-11-2024 09:32-0500 Heart rate 64 /min Mary Hemmer PA Work Phone: [facility] 04-11-2024 09:32-0500 Respiratory rate 16 /min Mary Hemmer PA Work Phone: [facility] 04-11-2024 09:32-0500 SaO2% (BldA) [Mass fraction] 97 % Mary Hemmer PA Work Phone: [facility] 04-11-2024 09:32-0500 Systolic blood pressure 126 mm[Hg] Mary Hemmer PA Work Phone: [facility] 02-11-2024 09:07-0500 Body height 188 cm Mary Hemmer PA Work Phone: [facility] 02-11-2024 09:07-0500 Body mass index (BMI) [Ratio] 26.78 kg/m2 Mary Hemmer PA Work Phone: [facility] 02-11-2024 09:07-0500 Body weight 94.62 kg Mary Hemmer PA Work Phone: [facility] 02-11-2024 09:07-0500 Diastolic blood pressure 78 mm[Hg] Mary Hemmer PA Work Phone: [facility] 02-11-2024 09:07-0500 Heart rate 63 /min Mary Hemmer PA Work Phone: [facility] 02-11-2024 09:07-0500 Respiratory rate 16 /min Mary Hemmer PA Work Phone: [facility] 02-11-2024 09:07-0500 SaO2% (BldA) [Mass fraction] 98 % Mary Hemmer PA Work Phone: [facility] 02-11-2024 09:07-0500 Systolic blood pressure 132 mm[Hg] Mary Hemmer PA Work Phone: [facility] 12-25-2023 20:15-0400 Body temperature 97.5 [degF] DO Feli Irizarry Work Phone: [facility] 12-25-2023 20:15-0400 Diastolic blood pressure 70 mm[Hg] DO Feli Irizarry Work Phone: [facility] 12-25-2023 20:15-0400 Heart rate 51 /min DO Feli Irizarry Work Phone: [facility] 12-25-2023 20:15-0400 Respiratory rate 16 /min DO Feli Irizarry Work Phone: [facility] 12-25-2023 20:15-0400 SaO2% (BldA) [Mass fraction] 95 % DO Feli Irizarry Work Phone: [facility] 12-25-2023 20:15-0400 Systolic blood pressure 155 mm[Hg] DO Feli Irizarry Work Phone: [facility] 12-25-2023 16:50-0400 Body height 187.96 cm DO Feli Irizarry Work Phone: [facility] 12-25-2023 16:50-0400 Body weight 93.4 kg DO Feli Irizarry Work Phone: [facility] 12-06-2023 13:54-0400 Body mass index (BMI) [Ratio] 27.5 kg/m2 Emily Popil PA-C Work Phone: [facility] 12-06-2023 13:54-0400 Body weight 94.53 kg Emily Popil PA-C Work Phone: [facility] 12-06-2023 13:54-0400 Diastolic blood pressure 78 mm[Hg] Emily Popil PA-C Work Phone: [facility] 12-06-2023 13:54-0400 Heart rate 73 /min Emily Popil PA-C Work Phone: [facility] 12-06-2023 13:54-0400 SaO2% (BldA) [Mass fraction] 98 % Emily Popil PA-C Work Phone: [facility] 12-06-2023 13:54-0400 Systolic blood pressure 142 mm[Hg] Emily Popil PA-C Work Phone: [facility] 10-22-2023 12:32-0400 Body height 185 cm Bijal Tompkins MACHINE DYER [facility] 10-22-2023 12:32-0400 Body mass index (BMI) [Ratio] 28.4 kg/m2 Bijal Tompkins MACHINE [employer] [facility] 10-22-2023 12:32-0400 Body temperature 97.88 [degF] Bijal Tompkins MACHINE DYER [facility] 10-22-2023 12:32-0400 Body weight 97.5 kg Bijal Tompkins MACHINE DYER [facility] 10-22-2023 12:32-0400 Diastolic blood pressure 70 mm[Hg] Bijal Tompkins MACHINE DYER [facility] 10-22-2023 12:32-0400 Heart rate 75 /min Bijal Tompkins MACHINE DYER [facility] 10-22-2023 12:32-0400 Respiratory rate 18 /min Bijal Tompkins MACHINE DYER [facility] 10-22-2023 12:32-0400 SaO2% (BldA) [Mass fraction] 98 % Bijal Tompkins MACHINE DYER [facility] 10-22-2023 12:32-0400 Systolic blood pressure 130 mm[Hg] Bijal Turner MACHINE DYER [facility] Encounters Encounter Date Encounter Type Care Provider Facility Start: 11-14-2024 End: 11-14-2024 Orders Only Mary Monet PA [facility] Comment on above: Abdominal pain, unsp ecified abdominal location Start: 08-11-2024 End: 08-11-2024 Office outpatient visit 15 minutes Mary Monet PA Work Phone: [facility] Comment on above: Abdominal pain, unsp ecified abdominal location (Primary Dx) Start: 08-11-2024 End: 08-11-2024 ambulatory MARY MONET Not Available Start: 04-11-2024 End: 04-11-2024 Bamboo flowsheet Mary Monet PA Work Phone: [facility] Start: 04-11-2024 End: 04-11-2024 Bamboo flowsheet Mary Monet PA Work Phone: [facility] Start: 04-11-2024 End: 04-11-2024 Office outpatient visit 25 minutes Mary Monet PA Work Phone: [facility] Comment on above: Near syncope (Primar y Dx); Symptomatic bradycardia; Anxiety Start: 04-11-2024 End: 04-11-2024 ambulatory MARY MONET Not Available Start: 02-11-2024 End: 02-11-2024 Bamboo flowsheet Mary Gutierrezmer PA Work Phone: [facility] Start: 02-11-2024 End: 02-11-2024 Bamboo flowsheet Mary Gutierrezmer PA Work Phone: [facility] Start: 02-11-2024 End: 02-11-2024 Office outpatient new 30 minutes Mary Monet PA Work Phone: [facility] Comment on above: Near syncope (Primar y Dx); Hypoglycemia; Deviated septum; Snoring; Elevated red blood cell count; Abnormal ECG; Elevated BUN; Anxiety Start: 02-11-2024 End: 02-11-2024 ambulatory MARY Camejo CHIKI Not Available Start: 12-25-2023 End: 12-25-2023 Emergency department patient visit DO Feli Irizarry Work Phone: [facility] Work Phone: Start: 12-06-2023 End: 12-06-2023 Office outpatient visit 15 minutes Emily Rai PA-C Work Phone: [facility] Comment on above: SOB (shortness of br eath) (Primary Dx); Elevated blood pressure reading; Anxiety; Deviated septum; Snoring Start: 12-06-2023 End: 12-06-2023 [facility] Start: 11-02-2023 End: 11-02-2023 ambulatory EMILY Stewart [facility] Start: 11-01-2023 End: 11-01-2023 ambulatory [facility] Start: 10-22-2023 Bijal Tompkins NP [facility] Start: 10-21-2023 End: 10-21-2023 ambulatory [facility] Start: 01-18-2023 End: 01-18-2023 ambulatory [facility] Start: 01-18-2023 End: 01-18-2023 Encounter for general adult medical examination without abnormal findings [facility] Start: 01-02-2021 End: 01-02-[address] DOCTOR BURKETT Facility:[facility] Procedures Date Procedure Procedure Detail Performing Clinician Start: 12-25-2023 CT angiography of head DO Feli Irizarry Work Phone: Start: 12-25-2023 CT angiography of ne ck vessels DO Feli Irizarry Work Phone: Start: 12-25-2023 CT of chest DO Feli little Work Phone: Start: 12-25-2023 CT of head without contrast DO Feli Irizarry Work Phone: Start: 01-18-2023 HEPATITIS B SURFACE ANTIBODY BRITTANY CLAYTON Start: 01-18-2023 T-SPOT TB BRITTANY CLAYTON Plan of Treatment Date Care Activity Detail Author Start: 2046 Zoster Vaccines (1 o f 2) Zoster Vaccines (1 of 2) [facility] Start: 08-11-2024 End: 08-11-2025 XR Abdomen Single view XR abdomen 1 view Imaging Routine Abdominal pain, unspecified abdominal location Expected: 08/11/2024, Expires: 08/11/2025 [facility] Work Phone: Comment on above: Expected: 08/11/2024 , Expires: 08/11/2025 Start: 04-11-2024 End: 04-11-2024 Patient encounter procedure [facility] Comment on above: Arrived Start: 02-11-2024 End: 02-10-2025 Basic metabolic 1998 panel - Serum or Plasma Basic metabolic panel Lab Routine Hypoglycemia Elevated BUN Expected: 02/11/2024 (Approximate), Expires: 02/10/2025 [facility] Comment on above: Expected: 02/11/2024 (Approximate), Expires: 02/10/2025 Start: 02-11-2024 End: 02-10-2025 CBC W Auto Differential panel - Blood CBC and differential Lab Routine Elevated red blood cell count Expected: 02/11/2024 (Approximate), Expires: 02/10/2025 [facility] Comment on above: Expected: 02/11/2024 (Approximate), Expires: 02/10/2025 Start: 02-11-2024 End: 02-10-2025 GAD65, IA-D,AND INSULIN AUTOANTIBODY GAD65, IA-D,AND INSULIN AUTOANTIBODY Lab Routine Near syncope Hypoglycemia Expected: 02/11/2024 (Approximate), Expires: 02/10/2025 [facility] Work Phone: Comment on above: Expected: 02/11/2024 (Approximate), Expires: 02/10/2025 Start: 02-11-2024 End: 02-10-2025 Holter monitor study Holter monitor Imaging Routine Near syncope Abnormal ECG Expected: 02/11/2024 (Approximate), Expires: 02/10/2025 [facility] Comment on above: Expected: 02/11/2024 (Approximate), Expires: 02/10/2025 Start: 02-07-2024 End: 02-07-2024 Patient encounter procedure 02/07/2024 2:00 PM EST Office Visit [facility] [place] [facility] [address] [place] [id number] Emily Rai PA-C [address] [facility] [address] [place] [address] [facility] Start: 11-28-2023 COVID-19 Vaccine ( season) COVID-19 Vaccine ( season) [facility] Start: 11-28-2023 Influenza vaccination Influenza Vacc ine (#1) [facility] Start: 11-13-2019 DTaP/Tdap/Td Vaccine s (7 - Td or Tdap) DTaP/Tdap/Td Vaccines (7 - Td or Tdap) [facility] Start: 2014 Hepatitis C screening Hepatitis C [facility] Start: 12-10-2011 HPV Vaccines (1 - Ma le 3-dose series) HPV Vaccines (1 - Male 3-dose series) [facility] Start: 05-15-2010 Hepatitis A Vaccines (2 of 2 - 2-dose series) Hepatitis A Vaccines (2 of 2 - 2-dose series) [facility] Start: 1996 HIV screening HIV Screening [facility] Start: 1996 Lipid panel Lipid Panel [facility] Start: 1996 Yearly Adult Physical Yearly Adult P hysical [facility] Patient Education Near Fainting (DC) Anxiety, Adult ED Low Blood Sugar, Adult ED [facility] Work Phone: Patient referral [facility] Work Phone: Immunizations Immunization Date Immunization Notes Care Provider Yehuda unger 12-22-2022 influenza, injectabl e, quadrivalent, preservative free Emily Popil PA-C Work Phone: [facility] Work Phone: 12-22-2022 influenza virus vacc ine, unspecified formulation Emily Popil PA-C Work Phone: [facility] Work Phone: 04-14-2022 tuberculin skin test ; purified protein derivative solution, intradermal Emily Popil PA-C Work Phone: [facility] Work Phone: 12-04-2021 Influenza, injectabl e, Madin Peace Canine Kidney, preservative free, quadrivalent Emily Popil PA-C Work Phone: [facility] Work Phone: 01-04-2021 influenza, injectabl e, quadrivalent, contains preservative Emily Popil PA-C Work Phone: [facility] Work Phone: 11-12-2009 hepatitis A vaccine, pediatric/adolescent dosage, 2 dose schedule Emily Popil PA-C Work Phone: [facility] Work Phone: 11-12-2009 meningococcal polysaccharide (groups A, C, Y and W-135) diphtheria toxoid conjugate vaccine (MCV4P) Emily Popil PA-C Work Phone: [facility] Work Phone: 11-12-2009 tetanus toxoid, redu stephany diphtheria toxoid, and acellular pertussis vaccine, adsorbed Emily Popil PA-C Work Phone: [facility] Work Phone: 11-12-2009 varicella virus vaccine Tyle r Popil PA-C Work Phone: [facility] Work Phone: 11-12-2009 hepatitis A and hepatitis B vaccine Emily Popil PA-C Work Phone: [facility] Work Phone: 11-06-2002 diphtheria, tetanus toxoids and acellular pertussis vaccine, unspecified formulation Emily Popil PA-C Work Phone: [facility] Work Phone: 11-06-2002 measles, mumps and rubella virus vaccine Emily Popil PA-C Work Phone: [facility] Work Phone: 11-06-2002 poliovirus vaccine, inactivated Emily Popil PA-C Work Phone: [facility] Work Phone: 03-27-1998 diphtheria, tetanus toxoids and acellular pertussis vaccine, unspecified formulation Emily Popil PA-C Work Phone: [facility] Work Phone: 03-27-1998 haemophilus influenz ae type b vaccine, conjugate unspecified formulation Emily Popil PA-C Work Phone: [facility] Work Phone: 03-27-1998 measles, mumps and rubella virus vaccine Emily Popil PA-C Work Phone: [facility] Work Phone: 03-27-1998 poliovirus vaccine, inactivated Emily Popil PA-C Work Phone: [facility] Work Phone: 12-26-1997 varicella virus vaccine Seng r Popil PA-C Work Phone: [facility] Work Phone: 06-07-1997 diphtheria, tetanus toxoids and acellular pertussis vaccine, unspecified formulation Emily Popil PA-C Work Phone: [facility] Work Phone: 06-07-1997 haemophilus influenz ae type b conjugate and Hepatitis B vaccine Emily Popil PA-C Work Phone: [facility] Work Phone: 04-09-1997 diphtheria, tetanus toxoids and acellular pertussis vaccine, unspecified formulation Emily Popil PA-C Work Phone: [facility] Work Phone: 04-09-1997 haemophilus influenz ae type b vaccine, conjugate unspecified formulation Emily Popil PA-C Work Phone: [facility] Work Phone: 04-09-1997 poliovirus vaccine, inactivated Emily Popil PA-C Work Phone: [facility] Work Phone: 02-13-1997 diphtheria, tetanus toxoids and acellular pertussis vaccine, unspecified formulation Emily Popil PA-C Work Phone: [facility] Work Phone: 02-13-1997 haemophilus influenz ae type b conjugate and Hepatitis B vaccine Emily Popil PA-C Work Phone: [facility] Work Phone: 02-13-1997 poliovirus vaccine, inactivated Emily Popil PA-C Work Phone: [facility] Work Phone: 1996 hepatitis B vaccine, pediatric or pediatric/adolescent dosage Emily Popil PA-C Work Phone: [facility] Work Phone: Payers Date Payer Category Payer [facility] [id number] 2023 Self-pay 2023 Unknown [employer]OYEE [employer] CHOICE [id number] 2023-Present [address] [place] [address] [id number] 2023 Unknown [id number] 1996 Unknown [id number] [id number] 1996 Unknown [id number] [id number] 1996 Unknown [id number] [id number] 1996 Unknown [id number] [id number] 1996 Unknown [id number] 2.4 1996 Unknown [id number]. 2.9 1996 Unknown [id number]. 2.9 1996 Unknown [id number] [id number] 1959 Private Health Insurance [id number] Unknown [id number] [id number] Social History Date Type Detail Facility Start: 12-25-2023 End: 02-11-2024 Tobacco smoking status NHIS Never smoked tobacco (finding) [facility] Start: 1996 Sex Assigned At Male F [facility] Start: 11-02-2023 End: 02-11-2024 Tobacco use and exposure Smokeless tobacco non-user [facility] Work Phone: Start: 02-11-2024 End: 08-11-2024 Alcoholic beverage intake Current drinker of alcohol (finding) [facility] Work Phone: Start: 02-08-2024 End: 08-11-2024 History of Social function [facility] Start: 02-08-2024 End: 08-11-2024 B1300 Health Literacy [facility] How often do you nee d to have someone help you when you read instructions, pamphlets, or other written material from your doctor or pharmacy [SILS] Never [facility] Healthcare Do you belong to any clubs or organizations such as latter day groups, unions, fraternal or athletic groups, or school groups? Yes [facility] Are you now , , , , never or living with a partner? Never [facility] How often to you hav e a drink containing alcohol? Monthly or less [facility] Work Phone: How many standard dr inks containing alcohol do you have on a typical day? 1 or 2 [facility] Work Phone: How often do you hav e 6 or more drinks on 1 occasion? Never [facility] Work Phone: Do you feel stress - tense, restless, nervous, or anxious, or unable to sleep at night because your mind is troubled all the time - these days [OSQ] Rather much [facility] (I/We) worried wheth er (my/our) food would run out before (I/we) got money to buy more. Never true [facility] In the past 12 month s, was there a time when you were not able to pay the mortgage or rent on time? No [facility] Start: 1995 Sex assigned at Not on file [facility] Work Phone: Start: 11-26-2023 End: 12-06-2023 Exposure to SARS-CoV-2 (event) Not sure [facility] NEGATED: Highlighted rowStart: RAYMOND History of tobacco use Passive smoker [facility] Work Phone: Functional Status Date Assessment Result Facility 08-11-2024 Patient Health [facility] ionnaire 2 item (PHQ-2) [Reported] [facility] Clinical Notes 06-07-2020 to 11-14-2024 GUSTAVO Lazo - 11/14/2024 12:20 PM GUSTAVO López - 08/11/2024 8:30 AM GUSTAVO López - 04/11/2024 9:30 AM GUSTAVO Abel - 02/11/2024 9:00 AM EST Note Date & Type Note Facility 11-14-2024 History of Present illness Narrative Pantoprazole refilled documented in this encounter [facility] 08-11-2024 History of Present illness Narrative Images from the original note were not included. Subjective Patient ID: Elvin Camilo is a 28 y.o. male who presents for Abdominal Pain. LUQ and also RLQ, it will come and go. Nagging type pain, sometimes sharp. States sometimes if he takes a deep breath the pain is right in the middle of his abdomen. When this started he did have diarrhea, but after a couple of days it did go away. Now he is going to the bathroom normally. States does not seem to be affected by food. Takes Creatine supplement since college. Does not drink Caffeine. Occasional alcohol, 1-2 times a month. Has not noticed that alcohol makes it worse. Has daily BM's He did try TUMS on Wednesday, and that did help some, has not tried anything else. Eats eats, oatmeal and banana in the morning. Armenian yogurt, mixed berries and almonds mid morning. Protein shakes, whey protein, has always used whey protein. Chicken, turkey or ground beef with vegetables. Eats basically the same thing every day. Abdominal Pain This is a new problem. The current episode started more than 1 month ago. The onset quality is gradual. The problem occurs intermittently. The problem has been waxing and waning. The pain is located in the LUQ and RLQ. The pain is at a severity of 2/10. The pain is mild. The quality of the pain is sharp and cramping. Pertinent negatives include no constipation, diarrhea, dysuria, fever, hematochezia, hematuria, nausea or vomiting. Exacerbated by: If he really has to urinate, like getting up in the middle of the night to pee, he notices the pain. The pain is relieved by Urination. He has tried antacids for the symptoms. The treatment provided significant relief. No current outpatient medications on file prior to visit. No current facility-administered medications on file prior to visit. I have reviewed and reconciled the history and medication list with the patient today. No Known Allergies Social History Tobacco Use Smoking status: Never Smokeless tobacco: Never Vaping Use Vaping status: Former Substance Use Topics Alcohol use: Yes Drug use: Never Family History Problem Relation Name Age of Onset Prostate cancer Father Past Medical History: Diagnosis Date Hypertension (CMS/HCC) History reviewed. No pertinent surgical history. Visit Vitals BP 112/68 Pulse 66 Ht 6' 2 Wt 204 lb SpO2 98% BMI 26.19 kg/m Smoking Status Never BSA 2.2 m Review of Systems Constitutional: Negative for appetite change, fatigue and fever. Respiratory: Negative for cough, shortness of breath and wheezing. Cardiovascular: Negative for chest pain, palpitations and leg swelling. Gastrointestinal: Positive for abdominal pain. Negative for abdominal distention, anal bleeding, blood in stool, constipation, diarrhea, hematochezia, nausea and vomiting. Genitourinary: Negative for dysuria and hematuria. Skin: Negative for rash. Objective Physical Exam Constitutional: General: He is not in acute distress. Appearance: Normal appearance. HENT: Head: Normocephalic and atraumatic. Eyes: General: No scleral icterus. Cardiovascular: Rate and Rhythm: Normal rate and regular rhythm. Heart sounds: No murmur heard. Pulmonary: Effort: Pulmonary effort is normal. No respiratory distress. Breath sounds: Normal breath sounds. No wheezing, rhonchi or rales. Abdominal: General: Bowel sounds are normal. Palpations: Abdomen is soft. There is no hepatomegaly or splenomegaly. Tenderness: There is no abdominal tenderness. There is no guarding or rebound. Negative signs include Babin's sign and Rovsing's sign. Musculoskeletal: General: No swelling. Skin: General: Skin is warm and dry. Neurological: General: No focal deficit present. Mental Status: He is alert and oriented to person, place, and time. Psychiatric: Mood and Affect: Mood normal. Behavior: Behavior normal. Assessment/Plan Diagnoses and all orders for this visit: Abdominal pain, unspecified abdominal location - XR abdomen 1 view; Future - pantoprazole (ProtoNix) 40 MG EC tablet; Take 1 tablet (40 mg) by mouth in the morning for 14 days. Take before meals. Do not crush, chew, or split. As TUMS helped relieve symptoms for patient, will have him try two weeks of Pantoprazole. Take first thing in the morning. Will also obtain XR of ABD to assess gas pattern. He will have this done where he works at [employer]. Will notify pt of results once received. ABD non-acute. Advised pt that if symptoms persist/worsen he is to notify office. Could consider CT of ABD in future if needed. Continue healthy diet, continue to stay hydrated. Follow up if symptoms worsen or fail to improve. documented in this encounter [facility] 04-11-2024 History of Present illness Narrative Images from the original note were not included. HPI Med Refill Additional comments: Metoprolol - he ran out, his last dose of this was taken on Wednesday Last edited by Gricelda Smalls LPN on 04/11/2024 9:32 AM. Subjective Patient ID: Elvin Camilo is a 28 y.o. male who presents for near syncope. Elvin is present today for follow up near syncope. He completed 30 day event monitor and is here today for results. He has had around 3 episodes of near snycope since his last visit and feels that has improved since he was having those feelings more frequently before he made his first appt. Was initially given Metoprolol for anxiety. States his anxiety has been ok since coming off of the Metoprolol. Has been doing meditation. Current Outpatient Medications on File Prior to Visit Medication Sig Dispense Refill [DISCONTINUED] metoprolol succinate XL (Toprol-XL) 25 MG 24 hr tablet Take 25 mg by mouth in the morning. No current facility-administered medications on file prior to visit. I have reviewed and reconciled the history and medication list with the patient today. No Known Allergies Social History Tobacco Use Smoking status: Never Smokeless tobacco: Never Vaping Use Vaping status: Former Substance Use Topics Alcohol use: Yes Drug use: Never Family History Problem Relation Name Age of Onset Prostate cancer Father Past Medical History: Diagnosis Date Hypertension (CMS/[facility]) History reviewed. No pertinent surgical history. Visit Vitals BP 126/84 Pulse 64 Resp 16 Ht 6' 2 Wt 206 lb 12.8 oz SpO2 97% BMI 26.55 kg/m Smoking Status Never BSA 2.21 m Review of Systems Constitutional: Negative for chills, fatigue and fever. Respiratory: Negative for cough, shortness of breath and wheezing. Cardiovascular: Negative for chest pain, palpitations and leg swelling. Gastrointestinal: Negative for abdominal pain, constipation, diarrhea, nausea and vomiting. Skin: Negative for rash. Neurological: Near syncope Objective Physical Exam Constitutional: General: He is not in acute distress. Appearance: Normal appearance. HENT: Head: Normocephalic and atraumatic. Eyes: General: No scleral icterus. Cardiovascular: Rate and Rhythm: Normal rate and regular rhythm. Heart sounds: No murmur heard. Pulmonary: Effort: Pulmonary effort is normal. No respiratory distress. Breath sounds: Normal breath sounds. No wheezing, rhonchi or rales. Musculoskeletal: General: No swelling. Skin: General: Skin is warm and dry. Neurological: General: No focal deficit present. Mental Status: He is alert and oriented to person, place, and time. Psychiatric: Mood and Affect: Mood normal. Behavior: Behavior normal. Assessment/Plan Diagnoses and all orders for this visit: Near syncope Last episode was on Wednesday while driving to work. Seems to happen most commonly, shortly after taking his Metoprolol dosage. Encouraged pt to continue to stay hydrated. Symptomatic bradycardia Reviewed holter monitor in detail with pt. Pt is having symptomatic bradycardia. Patient has already stopped the Metoprolol. Advised pt that I do believe the Metoprolol is the cause of his symptoms. Will have him continue to hold it at this time. He is to contact office if he has any further episodes of near syncope. If this occurs, would refer pt to Cardiology for further evaluation/treatment of symptomatic bradycardia. His BP is good today. Will recheck in three months. Anxiety Anxiety has not worsened with cessation of Metoprolol. Pt does not need medication specifically for anxiety at this time. Encouraged him to reach out should his anxiety worsen. Follow up in about 3 months (around 07/10/2024) for Recheck. documented in this encounter [facility] 02-11-2024 History of Present illness Narrative Images from the original note were not included. Subjective Patient ID: Elvin Camilo is a 28 y.o. male who presents for syncope. Elvin is present today for evaluation of near syncope. Admits his first episode was on September 18, 2023 and now is having the near syncope episodes 2 -3 times a week. Describes it as a porras to my head , palms sweaty, weakness in legs, labored breathing that can last from 10 minutes to an hour. Last week had a pulsating sensation behind left ear and that was a new symptom that he had not had before, has only had this a couple of times last week and has not happened again. Happens at random times, driving, at work, at gym, when going to bed, any time really. Can go a month without incident, and then can have a few days in a row. States it feels like a panic attack, but doesn't really feel anxious. In November didn't feel right so went to [facility] and they did a head CT. Does not feel that the Buspar has helped at all for his symptoms, up to 10 mg dosage without relief. Drinks a gallon of water a day. Does not drink electrolyte solutions regularly. Cut out energy drinks and all caffeine completely, did notice that caffeine made it worse. Eats 6-7 times a day, does eat carbohydrates. He works out 4 days a week, 1-2 hours at a time. Sometimes the symptoms come at the beginning of a work out, mid or late work out. Does notice some lightheadedness in the mornings when he first stands up. Previous sleep study that was ordered by previous PCP was not completed per pt. He admits he does still snore. Recently moved back to the area so is here to re-establish care. Current Outpatient Medications on File Prior to Visit Medication Sig Dispense Refill metoprolol succinate XL (Toprol-XL) 25 MG 24 hr tablet Take 25 mg by mouth in the morning. [DISCONTINUED] busPIRone (Buspar) 5 MG tablet Take 5 mg by mouth in the morning and 5 mg in the evening. No current facility-administered medications on file prior to visit. I have reviewed and reconciled the history and medication list with the patient today. No Known Allergies Social History Tobacco Use Smoking status: Never Smokeless tobacco: Never Vaping Use Vaping status: Former Substance Use Topics Alcohol use: Yes Drug use: Never Family History Problem Relation Name Age of Onset Prostate cancer Father Past Medical History: Diagnosis Date Hypertension (CMS/HCC) History reviewed. No pertinent surgical history. Visit Vitals BP 132/78 Pulse 63 Resp 16 Ht 6' 2 Wt 208 lb 9.6 oz SpO2 98% BMI 26.78 kg/m Smoking Status Never BSA 2.22 m Review of Systems Constitutional: Negative for chills, fatigue and fever. Respiratory: Negative for cough, shortness of breath and wheezing. Cardiovascular: Negative for chest pain, palpitations and leg swelling. Gastrointestinal: Negative for abdominal pain, constipation, diarrhea, nausea and vomiting. Skin: Negative for rash. Neurological: Positive for syncope (Near Syncope) and weakness. Psychiatric/Behavioral: The patient is not nervous/anxious. Objective Physical Exam Constitutional: General: He is not in acute distress. Appearance: Normal appearance. HENT: Head: Normocephalic and atraumatic. Eyes: General: No scleral icterus. Extraocular Movements: Extraocular movements intact. Conjunctiva/sclera: Conjunctivae normal. Cardiovascular: Rate and Rhythm: Normal rate and regular rhythm. Heart sounds: No murmur heard. Pulmonary: Effort: Pulmonary effort is normal. No respiratory distress. Breath sounds: Normal breath sounds. No wheezing, rhonchi or rales. Musculoskeletal: General: No swelling. Skin: General: Skin is warm and dry. Neurological: General: No focal deficit present. Mental Status: He is alert and oriented to person, place, and time. Cranial Nerves: Cranial nerves 2-12 are intact. Motor: Motor function is intact. Coordination: Coordination is intact. Gait: Gait normal. Psychiatric: Attention and Perception: Attention normal. Mood and Affect: Mood normal. Speech: Speech normal. Behavior: Behavior normal. Thought Content: Thought content normal. Cognition and Memory: Cognition normal. Judgment: Judgment normal. Assessment/Plan Diagnoses and all orders for this visit: Near syncope - GAD65, IA-D,AND INSULIN AUTOANTIBODY; Future - Holter monitor; Future Will obtain a 30 day Holter monitor for further evaluation. Longer duration needed due to intermittent random nature of pt's symptoms. Will see patient back in 2 months to review the results. Hypoglycemia - GAD65, IA-D,AND INSULIN AUTOANTIBODY; Future - Basic metabolic panel; Future Has had multiple episodes of hypoglycemia in the past. Will recheck with updated fasting labs including insulin autoantibodies. Encouraged him to continue with small frequent meals throughout the day. Deviated septum May be the cause of snoring for pt. Can refer in the future if needed. Snoring Can consider ordering sleep study in the future if needed. Elevated red blood cell count - CBC and differential; Future Encouraged pt to continue to stay hydrated. Drinking a gallon of water a day. Encouraged him to make sure he drinks something with electrolytes once a day also to avoid causing his electrolytes to go too low with drinking large amounts of water. Abnormal ECG - Holter monitor; Future Previous intraventricular conduction delay and right axis deviation seen on ECG done in the ER. Holter for further evaluation. Elevated BUN - Basic metabolic panel; Future Will recheck BUN with upcoming labs. Continue to stay hydrated. Anxiety Pt does not notice any difference when he takes the Buspar. He can stop it at this time and will monitor his mood. Follow up in about 2 months (around 04/12/2024) for Recheck, Review Testing Results. documented in this encounter [facility] 12-06-2023 History of Present illness Narrative Subjective Patient ID: Elvin Camilo is a 27 y.o. male who presents for Follow-up. HPI SOB: Feels this has improved a bit with the Metoprolol. Episodes are less intense. Possibly anxiety related. Had a normal CXR in Oct 2023. Having SOB off and on. Started on 09/17 out of the blue while he was driving. Becoming more frequent. Can last up to an hour. Happens at rest and with exertion. Denies CP, palpitations, wheezing. Never a smoker. No history of asthma. HTN: We started Metoprolol last visit. BP today is 142/78. Checking at home and getting in the 120s. Deviated septum: I referred to ENT last visit. I also ordered a sleep study. States he is a mouth breather and that he snores at night. Has never had a sleep test. Was told years ago he might have a deviated septum. Health maintenance: Smoking: Never a smoker. Labs: September 2023. Influenza: Review of Systems 12 point review of systems negative unless stated above in HPI Vitals: 12/06/23 1354 BP: 142/78 Pulse: 73 SpO2: 98% Physical Exam General: Alert and oriented, well nourished, no acute distress. Lungs: Clear to auscultation, non-labored respiration. Heart: Normal rate, regular rhythm, no murmur, gallop or edema. Neurologic: Awake, alert, and oriented X3, CN II-XII intact. Psychiatric: Cooperative, appropriate mood and affect. Assessment/Plan It was good seeing you! Let's continue the same dose for the Metoprolol. Continue monitoring at home and call if getting over 140/90. Let's try Buspar twice daily as needed for your symptoms. If symptoms persist or worsen despite current plan of care, please contact your healthcare provider for further evaluation. Patient instructed to contact the office if there are any questions regarding their care or treatment. [facility] 2 months Diagnoses and all orders for this visit: SOB (shortness of breath) Elevated blood pressure reading Anxiety - busPIRone (Buspar) 5 mg tablet; Take 1 tablet (5 mg) by mouth 2 times a day. Deviated septum Snoring documented in this encounter [facility] Work Phone: 06-07-2020 Note Patient Outreach ([place] [facility]) ELVIN CAMILO ([id number]) 1995 [facility] Date Time Provider Department 06/07/20 LINDA ALCANTARA During your visit today, we recorded the following information about you: Allergies As of Date: 06/07/2020 (Not on File) Date Reviewed: Never Reviewed Order(s):SARS-COVID VACCINE 1ST DOSE APPT [[id number]] Order #: [id number] FUTURE Problem List As Of Date: 06/07/2020 (None) Encounter Status:Closed by [employer] on 06/10/20 [facility] Evaluation note No assessment inform ation available [facility] Work Phone: Evaluation note Diagnosis Near syncope- Primary Hypoglycemia Hypoglycemia, unspecified Deviated septum Deviated nasal septum Snoring Other dyspnea and respiratory abnormality Elevated red blood cell count Polycythemia, secondary Abnormal ECG Nonspecific abnormal electrocardiogram (ECG) (EKG) Elevated BUN Other abnormal blood chemistry Anxiety Anxiety state, unspecified [facility] Diagnosis SOB (shortness of breath)- Primary Shortness of breath Elevated blood pressure reading Elevated blood pressure reading without diagnosis of hypertension Anxiety Anxiety state, unspecified Deviated septum Deviated nasal septum Snoring Other dyspnea and respiratory abnormality documented in this encounter [facility] Work Phone: Evaluation note* Diagnosis Near syncope- Primary Symptomatic bradycardia Anxiety Anxiety state, unspecified [facility] Diagnosis Abdominal pain, unspecified abdominal location- Primary [facility] Diagnosis Abdominal pain, unspecified abdominal location [facility] Additional Instructions Consider taking something when symptomatic to see that your glucose as discussed. Also consider autoimmune workup if not improving. Hold on taking caffeine for a week or 2 and see how you respond. Follow-up with your primary care physician locally.[facility] Work Phone: Instructions* Instruction Text Your symptoms are likely the result of Anxiety.Healty diet drink plenty of water Follow-up with PCP referrral submitted.If Symptoms worsens to ED. [facility] Summary Purpose Family History No Family History Records FoundNo Family History Records FoundNo Family History Records FoundNo Family History Records FoundNo Family History Records FoundNo Family History Records FoundNo Family History Records FoundNo Family History Records Found Advance Directives Advance Directive Response Recorded Date/ Time Advance Directives No November 5:14pm Chief Complaint and Reason for Visit Chief Complaint vision changes, sob Additional Source Comments (unrecognized sect ion and content) No Status Records FoundNo Status Records FoundNo Status Records FoundNo Status Records FoundNo Status Records FoundNo Status Records FoundNo Status Records FoundNo Status Records Found INFORMATION SOURCE (unrecogn ized section and content) DATE CREATED AUTHOR 08/17/2018 [facility] DATE CREATED AUTHOR AUTHOR'S ORGANIZ ATION 02/17/2021 [facility] DATE CREATED AUTHOR AUTHOR'S ORGANIZ ATION 04/23/2021 [facility] DATE CREATED AUTHOR AUTHOR'S ORGANIZ ATION 11/07/2023 [facility] DATE CREATED AUTHOR AUTHOR'S ORGANIZ ATION 12/07/2023 [facility] DATE CREATED AUTHOR AUTHOR'S ORGANIZ ATION 02/26/2024 [facility] DATE CREATED AUTHOR AUTHOR'S ORGANIZ ATION 08/05/2024 [facility] DATE CREATED AUTHOR AUTHOR'S ORGANIZ ATION 08/12/[address] [facility] [employer] Care Teams (unrecognized sec tion and content) Team Status: Active Member Role Status Dates Brittany Clayton MD Primary Care Provider Active Team Status: Inactive Member Role Status Dates Feli Irizarry DO Emergency Provider Active Sta rt: December 25, 2023 End: December 25, 2023 Brittany Clayton MD Primary Care Provider Active S tart: December 25, 2023 End: December 25, 2023 [employer] Work[employer] Relationship Specialty Start Date End Date Emily Rai PA-C [id number] [address] [facility], [address] [place] [address] PCP - General Internal Medicine 11/02/23 Goals (unrecognized section and content) Goals may be documented in a n alternate section Reason for Visit (unrecogniz ed section and content) Reason Comments Follow-up Reason Comments Med Refill Metoprolol - he ran out, his last dose of this was taken on Wednesday Reason Comments Abdominal Pain FOR RECORDS PERTAINING TO PATIENTS WHO ARE OR HAVE BEEN ENROLLED IN A CHEMICAL DEPENDENCY/SUBSTANCEABUSE PROGRAM, SOME INFORMATION MAY BE OMITTED. This clinical summary was aggregated from multiple sources. Caution should be exercised in using it in the provision of clinical care. This summary normalizes information from multiple sources, and as a consequence, information in this document may materially change the coding, format and clinical context of patient data. In addition, data may be omitted in some cases. CLINICAL DECISIONS SHOULD BE BASED ON THE PRIMARY CLINICAL RECORDS. [employer] provides no warranty or guarantee of the accuracy or completeness of information in this document.
--- OUTSIDE RECORDS SUMMARY | 2024-11-22 07:00 | XMS_ITS | Encounter Summary ---
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 Name Role Phone Unavailable Primary Care Provider Unavailabl e Encounter Details Date Type Department Care Team (Late st Contact Info) Description 11/02/2023 Orders Only [facility] [address] [place] [address] Unallocated, [facility] Provider, [address] [place] [address] Social History Tobacco Use Types Packs/Day Years [...] Associated Diagnosis Comments XR CHEST 2 VIEWS Routine 11/01/2023 8:48 AM EDT documented in this encounter Results * XR chest 2 views (11/01/2023 8:48 AM EDT) Anatomical Region Laterality Modality Chest Radiographic Betty ging us [facility] Provider Unallocated MD ADEN XR PROCEDURES F inal Result documented in this encounter Visit Diagnoses Not on filedocumented in this encounter
--- NOTE | 2024-11-22 07:22 | XR_ITS ---
[facility] [id number] Patient Name: ELVIN CAMILO MRN: [id number] date: 1995 Sex: M Assigned Patient Location: [place] Current Patient Location: [place] Accession/Order Number: [id number] Exam Date: 11/22/2024 07:15 Report Date: 11/22/2024 09:59 At the request of: MARY MONET Procedure: XR abdomen 1V SINGLE VIEW ABDOMEN COMPARISON: None CLINICAL DATA: Generalized abdominal pain for the past 1 to 2 weeks. Supine view of the abdomen and pelvis was obtained. There is stool along the colon, greatest at the rectum. There are no dilated small bowel loops. No soft tissue masses or suspect renal calculi are noted. The bony structures are intact. XR/XR abdomen 1V IMPRESSION: MILD TO MODERATE COLONIC STOOL. NO OTHER ACUTE FINDINGS. Impression dictated by: Mary Guidry M.D. 11/22/2024 9:59 AM Dictation Location: [employer] Electronically authenticated by: [id number] Date: 11/22/2024 09:59
== END 2024-11-22 06:59 | disposition home or self-care (01) ==
LOC: US 06:58
PROVIDERS: PCP Physician Assistant; Visit Provider Physician Assistant
DX: F10.11 Alcohol abuse, in remission (principal); R10.9 Unspecified abdominal pain
CPT/HCPCS: 74018; 76705

== ENCOUNTER 2024-12-04 12:07 | Outpatient (OUT) | payer BC, SELFPAY ==
--- OUTSIDE RECORDS SUMMARY | 2024-12-04 12:35 | XMS_ITS | CCD ---
Author Organization [facility] Care Team Providers Care Unified Communications Architect Name Role Phone DR NILES BURKETT Primary Care Unavailable BARRETT RENEE Consulting Unavailable BARRETT RENEE Attending Unavailable BARRETT RENEE Admitting Unavailable BRITTANY CLAYTON Referring Unavailable EMILY RAI Primary Care Unavailable EMILY RAI Attending Unavailable BIJAL TOMPKINS Referring Unava ilable EMILY RAI Primary Care Unavailable EMILY RAI Attending Unavailable EMILY RAI Primary Care Unavailable DO Feli Irizarry Emergency Provider MD Brittany Clayton Primary Care Provider Unavailable Primary Care Provider UnavailEmily Clement PA-C Primary Care Provider Bijal Tompkins Unavailable Chasity Nunn Unavailable Bijal Tompkins NP Unavailable Feli Irizarry Admitting Unavailable Feli Irizarry Attending Unavailable Brittany Clayton Primary Care Unavailable MARY MONET Attending Unavailable MARY MONET Attending Unavailable MARY MONET Attending Unavailable Brittany Clayton MD Primary Care Provider [phone] Bobbi Betancourt MD Attending Provider Allergies Allergy Classification Reported Allergen(s) Allergy Type Date of Onset Reaction(s) Facility (1 source) ALLERGIES NOT ON FILE; Translations: [ALLERGIES NOT ON FILE] Propensity to adverse reactions (disorder) [facility] Medications Current Medications Medication Drug Class(es) Dates Sig (Normalized) Sig (Original) cephalexin 500 mg oral capsule (3 sources) Cephalosporin Antibacterial Start: 03-02-2023 Cephalexin 500 mg oral capsule 24 hr metoprolol succinate 25 mg extended release oral tablet (9 sources) beta-Adrenergic Pierre Start: 12-25-2023 End: 04-11-2024 take 1 tablet by mouth every twenty-four hours in the morning metoprolol succinate XL (Toprol-XL) 25 MG 24 hr tablet Take 25 mg by mouth in the morning. 12/25/2023 04/11/2024 Discontinued (Side effects) Start: 11-02-2023 End: 11-29-2024 take 1 tablet by mouth once daily Metoprolol Succinate 25 mg tablet extended release 24 hr Discontinued 25 MG PO Daily December 25, 2023 12:00am November 29, 2024 1:36pm [place] (No Known Home Meds) (1 source) Start: 11-29-2024 [place] (No Kn own Home Meds) Active November 29, 2024 12:00am pantoprazole 40 mg delayed release oral tablet (6 sources) Proton Pump Inhibitor Start: 08-11-2024 End: [...] (Original) busPIRone hydrochloride 5 mg oral tablet (6 sources) Start: 12-06-2023 End: 11-29-2024 take 1 tablet by mouth twice daily Buspirone 5 mg tablet Discontinued 5 MG PO Twice daily December 25, 2023 12:00am November 29, 2024 1:36pm NEGATED: Highlighted row has not occurred! (3 sources) Start: 10-31-2023 End: 10-31-2023 Start: 10-23-2023 End: 10-23-2023 Start: 10-22-2023 End: 10-22-2023 Problems Active Problems Problem Classification Problem Date Documented Date Episodic/Chronic Abdominal pain (5 sources) Abdominal pain; Translations: [Unspecified abdominal pain] 08-11-2024 Episodic Anxiety disorders (20 sources) Anxiety disorder, unspecified; Translations: [Anxiety] Onset: 10-22-2023 Chronic Cardiac dysrhythmias (2 sources) Bradycardia; Translations: [Bradycardia, unspecified] 04-11-2024 Episodic Other circulatory disease (2 sources) Elevated blood-pressure reading, without diagnosis of hypertension; Translations: [Elevated blood-pressure reading, without diagnosis of hypertension] Onset: 11-02-2023 Episodic Other endocrine disorders (15 sources) Hypoglycemia; Translations: [Hypoglycemia, unspecified] Onset: 02-11-2024 [...] CARRIED OUT PT LEAVE] Onset: 01-06-2021 Episodic Syncope (19 sources) Near syncope; Translations: [Syncope and collapse] Onset: 02-11-2024 12-25-2023 Episodic Past or Other Problems Problem Classification Problem Date Documented Da te Episodic/Chronic Conditions associated with dizziness or vertigo (16 sources) Dizziness and giddiness; Translations: [Dizziness and giddiness] Onset: 01-02-2021 Episodic Other circulatory disease (13 sources) Elevated blood pressure; Translations: [Elevated blood-pressure reading, without diagnosis of hypertension] Onset: 11-02-2023 Resolved: 04-11-2024 02-11-2024 Episodic Other hematologic conditions (13 sources) Red blood cell count raised; Translations: [Other abnormality of red blood cells] Onset: 02-11-2024 02-11-2024 Episodic Other lower respiratory disease (3 sources) Shortness of breath; Translations: [Shortness of breath] Onset: 11-02-2023 Episodic Other lower respiratory disease (15 sources) Snoring; Translations: [Snoring] Onset: 11-02-2023 02-11-2024 Episodic Other lower respiratory disease (13 sources) Dyspnea; Translations: [Shortness of breath] Onset: 11-02-2023 02-11-2024 Episodic Other skin disorders (3 sources) Follicular disorder, unspecified; Translations: [Follicular disorder, unspecified] Onset: 03-02-2023 Episodic Other upper respiratory disease (15 sources) Deviated nasal septum; Translations: [Deviated nasal septum] Onset: 11-02-2023 02-11-2024 Episodic Residual codes; unclassified (1 source) Procedure not done; Translations: [Procedure and treatment not carried out due to patient leaving prior to being seen by health care provider] Onset: 01-06-2021 11-02-2023 Episodic Unclassified (1 source) Onset: 12-06-2023 12-06-2023 Results Test Name Value Interpretation Reference Range Facility [place] [address] Ultrasound Report Signed Patient: ELVIN CAMILO MR#: [id number] : 1995 Acct:[id number] Age/Sex: 28 / M ADM Date: 11/22/24 Loc: US Attending Dr: MARY MONET Ordering Physician: MARY MONET Date of Service: 11/22/24 Procedure(s): US right upper quadrant Accession Number(s): [id number] cc: MARY MONET [address] [address] Patient Name: ELVIN CAMILO MRN: [id number] date: 1995 Sex: M Assigned Patient Location: US Current Patient Location: US Accession/Order Number: [id number] Exam Date: 11/22/2024 07:02 Report Date: 11/22/2024 10:01 At the request of: MARY MONET Procedure: US right upper quadrant LIMITED RIGHT UPPER QUADRANT ABDOMINAL ULTRASOUND CLINICAL HISTORY: RIGHT UPPER QUADRANT PAIN x 2 WEEKS R10.11 COMPARISON: None The gallbladder is physiologically distended without shadowing calculi, wall thickening or pericholecystic fluid. No intra- or extrahepatic biliary dilatation is evident. The common duct measures 2-3 mm. The liver is normal in echogenicity. No intrahepatic masses are seen. There is appropriate hepatopetal flow within the main portal vein. The pancreas shows no significant sonographic abnormality. Cursory evaluation of the right kidney reveals no hydronephrosis or fluid within Barajas's pouch. US/US right upper quadrant IMPRESSION: NEGATIVE ULTRASOUND OF THE RIGHT UPPER QUADRANT. Impression dictated by: Mary Guidry M.D. 11/22/2024 10:01 AM Dictation Location: [place] [address] Electronically authenticated by: [id number] Y Date: 11/22/2024 10:01 Dictated By: Mary Guidry M.D. Signed By: 11/22/24 1004 DD/ 1001 TD/TT: Bottle Washer Machine: [facility] Radiology, Radiologi MD rosalva - 11/22/2024 [place] [address] Ultrasound Report Signed Patient: ELVIN CMAILO MR#: [id number] : 1995 Acct:[id number] Age/Sex: 28 / M ADM Date: 11/22/24 Loc: US Attending Dr: MARY MONET Ordering Physician: MARY MONET Date of Service: 11/22/24 Procedure(s): US right upper quadrant Accession Number(s): [id number] cc: MARY MONET [place] [id number] Patient Name: ELVIN CAMILO MRN: [facility]:[id number] date: 1995 Sex: M Assigned Patient Location: US Current Patient Location: US Accession/Order Number: [id number] Exam Date: 11/22/2024 07:02 Report Date: 11/22/2024 10:01 At the request of: MARY MONET Procedure: US right upper quadrant LIMITED RIGHT UPPER QUADRANT ABDOMINAL ULTRASOUND CLINICAL HISTORY: RIGHT UPPER QUADRANT PAIN x 2 WEEKS R10.11 COMPARISON: None The gallbladder is physiologically distended without shadowing calculi, wall thickening or pericholecystic fluid. No intra- or extrahepatic biliary dilatation is evident. The common duct measures 2-3 mm. The liver is normal in echogenicity. No intrahepatic masses are seen. There is appropriate hepatopetal flow within the main portal vein. The pancreas shows no significant sonographic abnormality. Cursory evaluation of the right kidney reveals no hydronephrosis or fluid within Barajas's pouch. US/US right upper quadrant IMPRESSION: NEGATIVE ULTRASOUND OF THE RIGHT UPPER QUADRANT. Impression dictated by: Mary Guidry M.D. 11/22/2024 10:01 AM Dictation Location: [place] [address] Electronically authenticated by: [id number] Y Date: 11/22/2024 10:01 Dictated By: Mary Guidry M.D. Signed By: 11/22/24 1004 DD/ 1001 TD/TT: Bottle Washer Machine: [facility] Radiology Study observation (narrative) [facility] US RIGHT UPPER QUADRANTOrder ed By: Radiologist Radiology on 11-22-2024 [facility] Work Phone: XR ABDOMEN 1Von 11-22-2024 [place] [id number] XRay Report Signed Patient: ELVIN CAMILO MR#: [id number] : 1995 Acct:[id number] Age/Sex: 28 / M ADM Date: 11/22/24 Loc: US Attending Dr: MARY MONET Ordering Physician: MARY MONET Date of Service: 11/22/24 Procedure(s): XR abdomen 1V Accession Number(s): [id number] cc: MARY MONET [place] [id number] Patient Name: ELVIN CAMILO MRN: [id number] date: 1995 Sex: M Assigned Patient Location: US Current Patient Location: US Accession/Order Number: [id number] Exam Date: 11/22/2024 07:15 Report Date: 11/22/2024 09:59 At the request of: MARY MONET Procedure: XR abdomen 1V SINGLE VIEW ABDOMEN COMPARISON: None CLINICAL DATA: Generalized abdominal pain for the past 1 to 2 weeks. Supine view of the abdomen and pelvis was obtained. There is stool along the colon, greatest at the rectum. There are no dilated small bowel loops. No soft tissue masses or suspect renal calculi are noted. The bony structures are intact. XR/XR abdomen 1V IMPRESSION: MILD TO MODERATE COLONIC STOOL. NO OTHER ACUTE FINDINGS. Impression dictated by: Mary Guidry M.D. 11/22/2024 9:59 AM Dictation Location: [place] [address] Electronically authenticated by: [id number] Y Date: 11/22/2024 09:59 Dictated By: Mary Guidry M.D. Signed By: 11/22/24 1001 DD/ 0959 TD/TT: Bottle Washer Machine: [facility] Radiology, Radiologi MD rosalva - 11/22/[address] [address] XRay Report Signed Patient: ELVIN CAMILO MR#: [id number] : 1995 Acct:[id number] Age/Sex: 28 / M ADM Date: 11/22/24 Loc: US Attending Dr: MARY MONET Ordering Physician: MARY MONET Date of Service: 11/22/24 Procedure(s): XR abdomen 1V Accession Number(s): [id number] cc: MARY MONET [address] [address] Patient Name: ELVIN CAMILO MRN: [facility]:[id number] date: 1995 Sex: M Assigned Patient Location: US Current Patient Location: US Accession/Order Number: [id number] Exam Date: 11/22/2024 07:15 Report Date: 11/22/2024 09:59 At the request of: MARY MONET Procedure: XR abdomen 1V SINGLE VIEW ABDOMEN COMPARISON: None CLINICAL DATA: Generalized abdominal pain for the past 1 to 2 weeks. Supine view of the abdomen and pelvis was obtained. There is stool along the colon, greatest at the rectum. There are no dilated small bowel loops. No soft tissue masses or suspect renal calculi are noted. The bony structures are intact. XR/XR abdomen 1V IMPRESSION: MILD TO MODERATE COLONIC STOOL. NO OTHER ACUTE FINDINGS. Impression dictated by: Mary Guidry M.D. 11/22/2024 9:59 AM Dictation Location: [facility] Electronically authenticated by: [id number] Y Date: 11/22/2024 09:59 Dictated By: Mary Guidry M.D. Signed By: 11/22/24 1001 DD/ 0959 TD/TT: Bottle Washer Machine: [facility] Radiology Study observation (narrative) [facility] XR ABDOMEN 1VOrdered By: Gustabo iologemilee Radiology on 11-22-2024 [facility] Work Phone: BASIC METABOLIC PANELon 11-2 BUN/CREATININE RATIO SEE NOTE: Normal 6-22 Ques t Diagnostics Comment on above: Result Comment: Not Reported: BUN and Creatinine are within reference range. Performed By: #### 1 0646 #### [facility] [address] [place] [address] Branch Service Associate: Herminia Kern MD,PhD,JOVON #### 22194, 8549 #### [facility] [place] [address] Branch Service Associate: Cielo Villasenor Calcium [Mass/Vol] 9.4 mg/dL Normal 8.6-10.3 [facility] Comment on above: Performed By: #### 1 7024 #### [facility], [address] [place] [address] Branch Service Associate: Herminia Kern MD,PhD,JOVON #### 25640, 1265 #### [facility] [place] [address] Branch Service Associate: Cielo Guillermo [place] Chloride [Moles/Vol] 104 mmol/L Normal 98-110 [facility] t Diagnostics Comment on above: Performed By: #### 1 4323 #### [facility]/[address] [address] Branch Service Associate: Herminia Kern MD,PhD,JOVON #### 13130, 0904 #### [facility]-[address] [address] Branch Service Associate: Cielo Guillermo Flati CO2 [Moles/Vol] 29 mmol/L Normal 20-32 [facility] Comment on above: Performed By: #### 1 0200 #### [facility]/[address] [address] Branch Service Associate: Herminia Kern MD,PhD,JOVON #### 03049, 0499 #### [facility]-[address] [address] Branch Service Associate: Cielo Villasenor Creatinine [Mass/Vol] 1.16 mg/dL Normal 0.60-1.24 [facility] Comment on above: Performed By: #### 1 3581 #### [facility]/[address] [address] Branch Service Associate: Herminia Kern MD,PhD,JOVON #### 61312, 6246 #### [facility]-[address] [address] Branch Service Associate: Cielo Villasenor GFR/1.73 sq M.predicted among non-blacks MDRD (S/P/Bld) [Vol rate/Area] 89 mL/min/{1.73_m2} Normal > OR = 60 [facility] Comment on above: Performed By: #### 1 5312 #### [facility]/[address] [address] Branch Service Associate: Herminia Kern MD,PhD,JOVON #### 35948, 2862 #### [facility]-[address] [address] Branch Service Associate: Cileo Quinteroi Glucose [Mass/Vol] 90 mg/dL Normal 65-99 [facility] Comment on above: Result Comment: Fasting reference interval Performed By: #### 1 0584 #### [facility]/[address] [address] Branch Service Associate: Herminia Kern MD,PhD,JOVON #### 25568, 4381 #### [facility]-[address] [address] Branch Service Associate: Cielo Guillermo Flati Potassium [Moles/Vol] 3.9 mmol/L Normal 3.5-5.3 [facility] Comment on above: Performed By: #### 1 2028 #### [facility], [address] [place] [address] Branch Service Associate: Herminia Kern MD,PhD,JOVON #### 53026, 3309 #### [facility]-[address] [address] Branch Service Associate: Cielo Guillermo Flati Sodium [Moles/Vol] 139 mmol/L Normal 135-146 [facility] Comment on above: Performed By: #### 1 5045 #### [facility], [address] [place] [address] Branch Service Associate: Herminia Kern MD,PhD,JOVON #### 09340, 7822 #### [facility]-[address] [address] Branch Service Associate: Cielo Guillermo Flati Urea nitrogen [Mass/Vol] 17 mg/dL Normal 7-25 [facility] Comment on above: Performed By: #### 1 2989 #### [facility], [address] [place] [address] Branch Service Associate: Herminia Kern MD,PhD,JOVON #### 93328, 2799 #### [facility] [address] Branch Service Associate: Cielo Villasenor CBC (INCLUDES DIFF/PLT)on Basophils (Bld) [#/Vol] 0.05 10*3/uL Normal 0-200 [facility] Comment on above: Performed By: #### 1 0584 #### [facility], [address] [place] [address] Branch Service Associate: Herminia Kern MD,PhD,JOVON #### 62710, 1200 #### [facility]-[place] [address] Branch Service Associate: Cielo Villasenor Basophils/100 WBC (Bld) 1.0 % Normal [facility] Comment on above: Performed By: #### 1 0584 #### [facility]/[place] [address] Branch Service Associate: Herminia Kern MD,PhD,JOVON #### 73917, 3693 #### [facility]-[place] [address] Branch Service Associate: Cielo Villasenor COMMENT(S) Normal [facility] Comment on above: Result Comment: Revi ew of peripheral smear confirms automated results. Performed By: #### 1 0584 #### [facility], [address] [place] [address] Branch Service Associate: Herminia Kern MD,PhD,JOVON #### 37[address], 1989 #### [place] [address] Branch Service Associate: Cielo R Flati Eosinophils (Bld) [#/Vol] 0.11 10*3/uL Normal 15-500 [facility] Comment on above: Performed By: #### 1 7351 #### [facility]/[place] [address] Branch Service Associate: Herminia Kern MD,PhD,JOVON #### 20501, 8961 #### [facility] [address] Branch Service Associate: Cielo Villasenor Eosinophils/100 WBC (Bld) 2.2 % Normal [facility] Comment on above: Performed By: #### 1 2620 #### [facility]/[place] [address] Branch Service Associate: Herminia Kern MD,PhD,JOVON #### 67034, 7760 #### [facility] [facility] [address] Branch Service Associate: Cielo Villasenor Erythrocyte distribution width (RBC) [Ratio] 14.1 % Normal 11.0-15.0 [facility] Comment on above: Performed By: #### 1 9239 #### [facility]/[place] [address] Branch Service Associate: Herminia Kern MD,PhD,JOVON #### 57488, 5490 #### [facility] Branch Service Associate: Cielo Villasenor Hematocrit (Bld) [Volume fraction] 55.4 % High 38.5-50.0 [facility] Comment on above: Performed By: #### 1 7787 #### [facility]/[place] [address] Branch Service Associate: Herminia Kern MD,PhD,JOVON #### 99658, 1971 #### [facility] [address] [place] [address] Branch Service Associate: Cielo Villasenor Hemoglobin (Bld) [Mass/Vol] 19.0 g/dL High 13.2-17.1 [facility] Comment on above: Result Comment: Veri fied by repeat analysis. Performed By: #### 1 0584 #### [facility], [address] [place] [address] Branch Service Associate: Herminia Kern MD,PhD,JOVON #### 17259, 0599 #### [facility]-[address] [address] Branch Service Associate: Cielo Villasenor Lymphocytes (Bld) [#/Vol] 1.525 10*3/uL Normal 850-3900 [facility] Comment on above: Performed By: #### 1 0584 #### [facility], [address] [place] [address] Branch Service Associate: Herminia Kern MD,PhD,JOVON #### 78401, 7578 #### [facility]-[address] [address] Branch Service Associate: Cielo Villasenor Lymphocytes/100 WBC (Bld) 30.5 % Normal [facility] Comment on above: Performed By: #### 1 0084 #### [facility]/[address] [address] Branch Service Associate: Herminia Kern MD,PhD,JOVON #### 94515, 6424 #### [facility]-[address] [address] Branch Service Associate: Cielo Villasenor MCH (RBC) [Entitic mass] 31.8 pg Normal 27.0-33.0 [facility] Comment on above: Performed By: #### 1 5599 #### [facility], [address] [place] [address] Branch Service Associate: Herminia Kern MD,PhD,JOVON #### 62953, 7540 #### [facility] [address] [place] [address] Branch Service Associate: Cielo Villasenor MCHC (RBC) [Mass/Vol] 34.3 g/dL Normal 32.0-36.0 [facility] st Diagnostics Comment on above: Result Comment: For adults, a slight decrease in the calculated MCHC value (in the range of 30 to 32 g/dL) is most likely not clinically significant; however, it should be interpreted with caution in correlation with other red cell parameters and the patient's clinical condition. Performed By: #### 1 7205 #### [facility]/[place] [address] Branch Service Associate: Herminia Kern MD,PhD,JOVON #### 49776, 2619 #### [facility] [address] [place] [address] Branch Service Associate: Cielo Villasenor MCV (RBC) [Entitic vol] 92.8 fL Normal 80.0-100.0 [facility] Comment on above: Performed By: #### 1 8285 #### [facility]/[place] [address] Branch Service Associate: Herminia Kern MD,PhD,JOVON #### 93803, 4898 #### [facility] [address] [place], [place] [address] Branch Service Associate: Cielo Villasenor Monocytes (Bld) [#/Vol] 0.665 10*3/uL Normal 200-950 [facility] Comment on above: Performed By: #### 1 0600 #### [facility]/[place] [address] Branch Service Associate: Herminia Kern MD,PhD,JOVON #### 65461, 6399 #### [facility] [address] [place] [address] Branch Service Associate: Cielo Villasenor Monocytes/100 WBC (Bld) 13.3 % Normal [facility] Comment on above: Performed By: #### 1 0584 #### [facility], [address] [place] [address] Branch Service Associate: Herminia Kern MD,PhD,JOVON #### 50285, 6399 #### [facility] [address] [place] [address] Branch Service Associate: Cielo Villasenor Neutrophils (Bld) [#/Vol] 2.65 10*3/uL Normal 5548-6916 [facility] Comment on above: Performed By: #### 1 0584 #### [facility], [address] [place] [address] Branch Service Associate: Herminia Kern MD,PhD,JOVON #### 07882, 5389 #### [facility]-[address] [address] Branch Service Associate: Cielo Villasenor Neutrophils/100 WBC (Bld) 53.0 % Normal [facility] Comment on above: Performed By: #### 1 0518 #### [facility], [address] [place] [address] Branch Service Associate: Herminia Kern MD,PhD,JOVON #### 80958, 7799 #### [facility]-[address] [address] Branch Service Associate: Cielo Villasenor Platelet mean volume (Bld) [Entitic vol] 10.2 fL Normal 7.5-12.5 [facility] Comment on above: Performed By: #### 1 0135 #### [facility], [address] [place] [address] Branch Service Associate: Herminia Kern MD,PhD,JOVON #### 57792, 4273 #### [facility] [address] Branch Service Associate: Cielo Villasenor Platelets (Bld) [#/Vol] 186 10*3/uL Normal 140-400 [facility] Comment on above: Performed By: #### 1 0584 #### [facility], [address] [place] [address] Branch Service Associate: Herminia Kern MD,PhD,JOVON #### 15514, 6777 #### [facility] [address] Branch Service Associate: Cielo Villasenor RBC (Bld) [#/Vol] 5.97 10*6/uL High 4.20-5.80 [facility] Comment on above: Performed By: #### 1 0584 #### [facility], [address] [place], [place] [address] Branch Service Associate: Herminia Kern MD,PhD,JOVON #### 05009, 4379 #### [facility] [address] Branch Service Associate: Cielo Villasenor WBC (Bld) [#/Vol] 5.0 10*3/uL Normal 3.8-10.8 [facility] Comment on above: Performed By: #### 1 0539 #### [facility], [address] [place] [address] Branch Service Associate: Herminia Kern MD,PhD,JOVON #### 11373, 9948 #### [facility] [address] Branch Service Associate: Cielo Villasenor GAD65, IA-2, AND INSULIN AUT OANTIBODYon 02-24-2024 GLUTAMIC ACID DECARBOXYLASE 65 AB <5 Normal <5 [facility] Comment on above: Order Comment: FASTI NG:YES FASTING: YES Result Comment: This test was performed using the GAD65 KEAGAN method which is standardized against the International reference preparation 97/550. Performed By: #### 1 0584 #### [facility], [address] [place] [address] Branch Service Associate: Herminia Kenr MD,PhD,JOVON #### [id number], [id number] #### [facility] [address] Branch Service Associate: Cielo Villasenor IA-2 ANTIBODY <5.4 Normal <5.4 [facility] Comment on above: Order Comment: FASTI NG:YES FASTING: YES Result Comment: This test was performed using the IA-2 Antibody KEAGAN method which is standardized against the WHO Reference Reagent 97/550. The reference range reported was established specifically for this test method. Performed By: #### 1 0505 #### [facility], [address] [place] [address] Branch Service Associate: Herminia Kern MD,PhD,JOVON #### [id number], 7428 #### [facility] [address] Branch Service Associate: Cielo Villasenor INSULIN AUTOANTIBODY <0.4 Normal <0.4 [facility] Comment on above: Order Comment: FASTI NG:YES FASTING: YES Performed By: #### 1 0535 #### [facility], [address] [place] [address] Branch Service Associate: Herminia Kern MD,PhD,JOVON #### [id number], 7486 #### [facility] [address] [place] [address] Branch Service Associate: Cielo Villasenor Activated partial thrombopla stin time (aPTT) in platelet poor plasma by coagulation aOrdered By: Feli Irizarry on 12-25-2023 aPTT Coag (PPP) [Time] 28.5 s 25.1-36.5 [facility] Comment on above: A hematocrit value g reater than 55% may lead to inaccurate results in coagulation testing. Patients having hematocrit values >55% require a special collection tube for coagulation studies. Please contact the laboratory at [phone] for redraw instructions. Automated basophil %Ordered By: Feli Irizarry on 12-25-2023 Basophils/100 WBC (Bld) 0.6 % Normal . [facility] Comment on above: Performed By: #### P T, HS TROP, TSH3, CK, PTT, BNP, SCAN CBC, CBC, BMP #### [facility] [address] [place] [address] Automated basophil countOrde red By: Feli Irizarry on 12-25-2023 Basophils (Bld) [#/Vol] 0.0 10*3/uL Normal 0.0-0.2 [facility] Comment on above: Result Comment: PERF ORMED BY: [address] [place] [address] PATHOLOGIST COP RICO YANG M.D. Performed By: #### P T, HS TROP, TSH3, CK, PTT, BNP, SCAN CBC, CBC, BMP #### [address] Automated blood monocyte cou ntOrdered By: Feli Irizarry on 12-25-2023 Monocytes (Bld) [#/Vol] 0.6 10*3/uL Normal 0.0-0.8 [facility] Comment on above: Performed By: #### P T, HS TROP, TSH3, CK, PTT, BNP, SCAN CBC, CBC, BMP #### [address] Automated eosinophil %Ordere d By: Feli Irizarry on 12-25-2023 Eosinophils/100 WBC (Bld) 1.1 % Normal . [facility] Comment on above: Performed By: #### P T, HS TROP, TSH3, CK, PTT, BNP, SCAN CBC, CBC, BMP #### [address] [address] [place] Automated eosinophil countOr dered By: Feli Irizarry on 12-25-2023 Eosinophils (Bld) [#/Vol] 0.1 10*3/uL Normal 0.0-0.45 [facility] Comment on above: Performed By: #### P T, HS TROP, TSH3, CK, PTT, BNP, SCAN CBC, CBC, BMP #### [address] Automated monocyte %Ordered By: Feli Irizarry on 12-25-2023 Monocytes/100 WBC (Bld) 8.9 % Normal . [facility] Comment on above: Performed By: #### P T, HS TROP, TSH3, CK, PTT, BNP, SCAN CBC, CBC, BMP #### [address] Automated neutrophil %Ordere d By: Feli Irizarry on 12-25-2023 Neutrophils/100 WBC (Bld) 67.9 % Normal . [facility] Comment on above: Performed By: #### P T, HS TROP, TSH3, CK, PTT, BNP, SCAN CBC, CBC, BMP #### [address] BNP ser/plasOrdered By: Feli Irizarry on 12-25-2023 Natriuretic peptide B (Bld) [Mass/Vol] 8.0 pg/mL Normal 5-100 [facility] Comment on above: Result Comment: PERF ORMED BY: [place] [address] PATHOLOGIST COP RICO YANG M.D. Performed By: #### P T, HS TROP, TSH3, CK, PTT, BNP, SCAN CBC, CBC, BMP #### [address] Basic Metabolic Panelon 11-28 Creatinine Clr Calc Pharmacy 111.21 Normal [facility] Comment on above: Performed By: #### P T, HS TROP, TSH3, CK, PTT, BNP, SCAN CBC, CBC, BMP #### [place] [id number] [place] GFR/1.73 sq M.predicted MDRD (S/P/Bld) [Vol rate/Area] mL/min/{1.73_m2} Normal [facility] Comment on above: Performed By: #### P T, HS TROP, TSH3, CK, PTT, BNP, SCAN CBC, CBC, BMP #### [facility] [address] [place] [address] CT angio headon 12-25-2023 CT angio head [facility] [place] [address] [place] [address] CT Scan Report Signed Patient: Elvin Camilo MR#: [id number] : 1995 Acct:[id number] Age/Sex: 28 / M ADM Date: 12/25/23 Loc: ER Room: Type: [facility] ER Attending Dr: Copies to: Feli Irizarry DO Ordering Provider: Feli Irizarry DO Date of Service: 12/25/23 CT/CT angio head: f ([id number]) CT/CT angio chest: f ([id number]) CT/CT angio neck: f ([id number]) CT/CT head/brain wo con: f Unenhanced head [...] adenopathy. No pneumoperitoneum. No mediastinal hematoma. PULMONARY MIHAELA: No hilar mass or adenopathy is seen. [...] Leeroy Orantes M.D.12/25/2023 6:29 PM Dictation Location: [place] [address] Transcribed By: [facility] 12/25/231828 Dictated By: Leeroy Orantes DO 12/25/231821 Signed By: 12/25/231828 Normal [facility] Calcium [Mass/volume] in Ser um or PlasmaOrdered By: Feli Irizarry on 12-25-2023 Calcium [Mass/Vol] 9.5 mg/dL Normal 8.6-10.3 [facility] Comment on above: Performed By: #### P T, HS TROP, TSH3, CK, PTT, BNP, SCAN CBC, CBC, BMP #### [address] Carbon dioxide, total [Moles /volume] in Serum or PlasmaOrdered By: Feli Irizarry on 12-25-2023 CO2 [Moles/Vol] 24.6 mmol/L Normal 21.0-31.0 [facility] Comment on above: Performed By: #### P T, HS TROP, TSH3, CK, PTT, BNP, SCAN CBC, CBC, BMP #### [address] Chloride [Moles/volume] in S maximo or PlasmaOrdered By: Feli Irizarry on 12-25-2023 Chloride [Moles/Vol] 105 mmol/L Normal 98-107 [facility] Comment on above: Performed By: #### P T, HS TROP, TSH3, CK, PTT, BNP, SCAN CBC, CBC, BMP #### [address] Complete Blood Count Auto Di ffon 12-25-2023 Mean Corpuscular HGB Conc 35.1 g/dL Normal 32.5-35.6 [facility] Comment on above: Performed By: #### P T, HS TROP, TSH3, CK, PTT, BNP, SCAN CBC, CBC, BMP #### [facility] [address] [place] [address] NRBC% 0.4 /100{WBC} Normal 0-0.5 [facility] Comment on above: Performed By: #### P T, HS TROP, TSH3, CK, PTT, BNP, SCAN CBC, CBC, BMP #### [place] [address] [place] Creatine kinase [Enzymatic a ctivity/volume] in Serum or PlasmaOrdered By: Feli Irizarry on 12-25-2023 CK [Catalytic activity/Vol] 356 U/L High 30-223 [facility] Comment on above: Performed By: #### P T, HS TROP, TSH3, CK, PTT, BNP, SCAN CBC, CBC, BMP #### [place] [address] [place] Creatinine [Mass/volume] in Serum or PlasmaOrdered By: Feli Irizarry on 12-25-2023 Creatinine [Mass/Vol] 1.16 mg/dL Normal 0.70-1.30 [facility] Comment on above: Performed By: #### P T, HS TROP, TSH3, CK, PTT, BNP, SCAN CBC, CBC, BMP #### [facility] [address] [place] [id number] [facility] ECG 12 lead ECGon 12-25-2023 ECG 12 lead ECG [facility] [place] [address] [place] [address] Electrocardiograph Report Signed Patient: Elvin Camilo MR#: [id number] : 1995 Acct:[id number] Age/Sex: 28 / M ADM Date: 12/25/23 Loc: ER Room: Type: [facility] ER Attending Dr: Ordering Provider: Feli Irizarry [...] ECGs available Confirmed by FELI IRIZARRY DO ([id number]) on 12/26/2023 2:02:12 AM Referred By: Electronically Signed By: FELI IRIZARRY DO Transcribed By: MUS Signed By Feli Irizarry DO 12/25 0202 Normal [facility] Erythrocyte distribution wid th [Ratio] by Automated countOrdered By: Feli Irizarry on 12-25-2023 Erythrocyte distribution width (RBC) [Ratio] 13.0 % Normal 12.0-14.8 [facility] Comment on above: Performed By: #### P T, HS TROP, TSH3, CK, PTT, BNP, SCAN CBC, CBC, BMP #### [facility] [address] [place], [place] [id number] [place] Erythrocytes [#/volume] in B lood by Automated countOrdered By: Feli Irizarry on 12-25-2023 RBC (Bld) [#/Vol] 5.89 10*6/uL High 3.90-5.60 [facility] Comment on above: Performed By: #### P T, HS TROP, TSH3, CK, PTT, BNP, SCAN CBC, CBC, BMP #### [facility] [address] Glucose [Mass/volume] in Ser um or PlasmaOrdered By: Feli Irizarry on 12-25-2023 Glucose [Mass/Vol] 64 mg/dL Low 70-100 [facility] Comment on above: ADA recommended refe rence rangeRandom Glucose Reference Range is dependent on time and content of last meal. Glucose of more than 200 mg/dL in a nonstressed, ambulatory subject supports the diagnosis of Diabetes Mellitus. Result Comment: [place] om Glucose Reference Range is dependent on time and content of last meal. Glucose of more than 200 mg/dL in a nonstressed, ambulatory subject supports the diagnosis of Diabetes Mellitus. ADA recommended reference range Performed By: #### P T, HS TROP, TSH3, CK, PTT, BNP, SCAN CBC, CBC, BMP #### [facility] [address] Hematocrit [Volume Fraction] of Blood by Automated countOrdered By: Feli Irizarry on 12-25-2023 Hematocrit (Bld) [Volume fraction] 53.4 % High 38.8-50.0 [facility] Comment on above: Performed By: #### P T, HS TROP, TSH3, CK, PTT, BNP, SCAN CBC, CBC, BMP #### [facility] [address] [place] [address] [place] Hemoglobin [Mass/volume] in BloodOrdered By: Feli Irizarry on 12-25-2023 Hemoglobin (Bld) [Mass/Vol] 18.8 g/dL High 13.0-17.0 [facility] Comment on above: Performed By: #### P T, HS TROP, TSH3, CK, PTT, BNP, SCAN CBC, CBC, BMP #### [address] INR in Platelet poor plasma by Coagulation assayOrdered By: Feli Irizarry on 12-25-2023 INR Coag (PPP) [Relative time] 1.2 {INR} Normal [facility] Comment on above: INR Therapeutic Rang e [...] PTT, BNP, SCAN CBC, CBC, BMP #### [facility] [address] Leukocytes [#/volume] correc justin for nucleated erythrocytes in Blood by Automated counOrdered By: Feli Irizarry on 12-25-2023 WBC corrected for nucl RBC Auto (Bld) [#/Vol] 6.8 10*3/uL 4.1-10.5 [facility] Leukocytes [#/volume] in Blo od by Automated countOrdered By: Feli Irizarry on 12-25-2023 WBC (Bld) [#/Vol] 6.8 10*3/uL Normal 4.1-10.5 [facility] Comment on above: Performed By: #### P T, HS TROP, TSH3, CK, PTT, BNP, SCAN CBC, CBC, BMP #### [facility] [address] [place] [address] [place] Lymphocytes [#/volume] in Bl ood by Automated countOrdered By: Feli Irizarry on 12-25-2023 Lymphocytes (Bld) [#/Vol] 1.5 10*3/uL Normal 1.00-4.8 [facility] Comment on above: Performed By: #### P T, HS TROP, TSH3, CK, PTT, BNP, SCAN CBC, CBC, BMP #### [facility] [address] Lymphocytes/100 leukocytes i n Blood by Automated countOrdered By: Feli Irizarry on 12-25-2023 Lymphocytes/100 WBC (Bld) 21.5 % Normal . [facility] Comment on above: Performed By: #### P T, HS TROP, TSH3, CK, PTT, BNP, SCAN CBC, CBC, BMP #### [facility] [address] MCH [Entitic mass] by Automa justin countOrdered By: Feli Irizarry on 12-25-2023 MCH (RBC) [Entitic mass] 31.8 pg Normal 27.5-35.2 [facility] Comment on above: Performed By: #### P T, HS TROP, TSH3, CK, PTT, BNP, SCAN CBC, CBC, BMP #### [address] MCHC Auto (RBC) [Mass/Vol]Or dered By: Feli Irizarry on 12-25-2023 MCHC (RBC) [Mass/Vol] 35.1 g/dL 32.5-35.6 [facility] MCV [Entitic volume] by Auto mated countOrdered By: Feli Irizarry on 12-25-2023 MCV (RBC) [Entitic vol] 90.7 fL Normal 83.5-101 [facility] Comment on above: Performed By: #### P T, HS TROP, TSH3, CK, PTT, BNP, SCAN CBC, CBC, BMP #### [address] Monocyte distribution width [Entitic volume] in Blood by AutomatedOrdered By: Feli Irizarry on 12-25-2023 Monocyte distribution width Auto (Bld) [Entitic vol] 16.46 % 0.00-20.00 [facility] Neutrophils [#/volume] in Bl ood by Automated countOrdered By: Feli Irizarry on 12-25-2023 Neutrophils (Bld) [#/Vol] 4.6 10*3/uL Normal 1.8-7.7 [facility] Comment on above: Performed By: #### P T, HS TROP, TSH3, CK, PTT, BNP, SCAN CBC, CBC, BMP #### [facility] [address] No Panel InformationOrdered By: Feli Irizarry on 12-25-2023 Estimated GFR (CKD-EPI) > 60.0 mL/Min [facility] Creatinine Clearance (Chem 111.21 [facility] Nucleated erythrocytes [Pres ence] in Blood by Automated countOrdered By: Feli Irizarry on 12-25-2023 Nucleated RBC Auto Ql (Bld) 0.4 /100{WBC} 0-0.5 [facility] Partial Thromboplastin Timeo n 12-25-2023 aPTT Coag (Bld) [Time] 28.5 s Normal 25.1-36.5 [facility] Comment on above: Result Comment: A he matocrit value greater than 55% may lead to inaccurate results in coagulation testing. Patients having hematocrit values >55% require a special collection tube for coagulation studies. Please contact the laboratory at [phone] for redraw instructions. PERFORMED BY: [address] [place] [address] PATHOLOGIST COP RICO YANG M.D. Performed By: #### P T, HS TROP, TSH3, CK, PTT, BNP, SCAN CBC, CBC, BMP #### [facility] [address] Platelet adequacy [Presence] in Blood by Light microscopyOrdered By: Feli Irizarry on 12-25-2023 Platelets LM Ql (Bld) Normal Normal [facility] Platelet mean volume [Entiti c volume] in Blood by Automated countOrdered By: Feli Irizarry on 12-25-2023 Platelet mean volume (Bld) [Entitic vol] 8.2 fL Normal 6.6-10.1 [facility] Comment on above: Performed By: #### P T, HS TROP, TSH3, CK, PTT, BNP, SCAN CBC, CBC, BMP #### [facility] [address] [place] [address] Platelet morphology finding [Identifier] in BloodOrdered By: Feli Irizarry on 12-25-2023 Platelet morphology finding Nom (Bld) Normal Normal [facility] Platelets [#/volume] in Bloo d by Automated countOrdered By: Feli Irizarry on 12-25-2023 Platelets (Bld) [#/Vol] 225 10*3/uL Normal 150-450 [facility] Comment on above: Performed By: #### P T, HS TROP, TSH3, CK, PTT, BNP, SCAN CBC, CBC, BMP #### [facility] [address] Potassium [Moles/volume] in Serum or PlasmaOrdered By: Feli Irizarry on 12-25-2023 Potassium [Moles/Vol] 3.8 mmol/L Normal 3.5-5.1 [facility] Comment on above: Hemolysis is present at a level that could interfere with the result.Contact lab if redraw is required Result Comment: Hemo lysis is present at a level that could interfere with the result. Contact lab if redraw is required Performed By: #### P T, HS TROP, TSH3, CK, PTT, BNP, SCAN CBC, CBC, BMP #### [facility] [address] Prothrombin time (PT)Ordered By: Feli Irizarry on 12-25-2023 PT Coag (PPP) [Time] 14.1 s High 9.0-12.9 [facility] Comment on above: A hematocrit value g reater than 55% may lead to inaccurate results in coagulation testing. Patients having hematocrit values >55% require a special collection tube for coagulation studies. Please contact the laboratory at [phone] for redraw instructions. Result Comment: A he matocrit value greater than 55% may lead to inaccurate results in coagulation testing. Patients having hematocrit values >55% require a special collection tube for coagulation studies. Please contact the laboratory at [phone] for redraw instructions. Performed By: #### P T, HS TROP, TSH3, CK, PTT, BNP, SCAN CBC, CBC, BMP #### [facility] [address] RBC morphologyOrdered By: Devendra Irizarry on 12-25-2023 RBC morphology finding Nom (Bld) Normal Normal Normal [facility] Comment on above: Performed By: #### P T, HS TROP, TSH3, CK, PTT, BNP, SCAN CBC, CBC, BMP #### [address] Scan and CBCon 12-25-2023 Monocytes/100 WBC (Bld) 16.46 % Normal 0.00-20.00 [facility] Comment on above: Performed By: #### P T, HS TROP, TSH3, CK, PTT, BNP, SCAN CBC, CBC, BMP #### [address] Platelet Estimate Normal Normal Normal [facility] Comment on above: Performed By: #### P T, HS TROP, TSH3, CK, PTT, BNP, SCAN CBC, CBC, BMP #### [address] Platelet Morphology Normal Normal Normal [facility] Comment on above: Result Comment: PERF ORMED BY: [place] [address] PATHOLOGIST COP RICO YANG M.D. Performed By: #### P T, HS TROP, TSH3, CK, PTT, BNP, SCAN CBC, CBC, BMP #### [address] Serum or plasma anion gap de terminationOrdered By: Feli Irizarry on 12-25-2023 Anion gap [Moles/Vol] 13.2 mmol/L Normal 6.0-15.0 [facility] Comment on above: Performed By: #### P T, HS TROP, TSH3, CK, PTT, BNP, SCAN CBC, CBC, BMP #### [address] Sodium [Moles/volume] in Ser um or PlasmaOrdered By: Feli Irizarry on 12-25-2023 Sodium [Moles/Vol] 139 mmol/L Normal 136-145 [facility] Comment on above: Performed By: #### P T, HS TROP, TSH3, CK, PTT, BNP, SCAN CBC, CBC, BMP #### [facility] [address] [place] [address] Thyrotropin [Units/volume] i n Serum or PlasmaOrdered By: Feli Irizarry on 12-25-2023 TSH Qn 3.55 m[IU]/L Normal 0.45-5.33 [facility] Comment on above: Result Comment: PERF ORMED BY: [place] [address] PATHOLOGIST COP RICO YANG M.D. Performed By: #### P T, HS TROP, TSH3, CK, PTT, BNP, SCAN CBC, CBC, BMP #### [address] Troponin I High Sensitivityo n 12-25-2023 Troponin I High Sensitivity 7.2 pg/mL Normal 0.0-20.0 [facility] Comment on above: Order Comment: Comme nt repeat Result Comment: PERF ORMED BY: [place] [address] PATHOLOGIST COP RICO YANG M.D. Performed By: #### H S TROP #### [facility] [address] [place] [address] Troponin I High Sensitivity 6.1 pg/mL Normal 0.0-20.0 [facility] Comment on above: Result Comment: PERF ORMED BY: [place] [address] PATHOLOGIST COP RICO YANG M.D. Performed By: #### P T, HS TROP, TSH3, CK, PTT, BNP, SCAN CBC, CBC, BMP #### [facility] [address] [place] [address] Troponin I.cardiac [Mass/vol ume] in Serum or Plasma by Detection limit <= 0.01 ng/Ordered By: Feli Irizarry on 12-25-2023 Troponin I.cardiac DL <= 0.01 ng/mL [Mass/Vol] 7.2 pg/mL 0.0-20.0 [facility] Urea nitrogen [Mass/volume] in Serum or PlasmaOrdered By: Feli Irizarry on 12-25-2023 Urea nitrogen [Mass/Vol] 26 mg/dL High 10-20 [facility] Comment on above: Performed By: #### P T, HS TROP, TSH3, CK, PTT, BNP, SCAN CBC, CBC, BMP #### [facility] [address] XR CHEST 2 VIEWSon XR CHEST 2 VIEWS Interpreted By: Vivek Alcala, STUDY: XR CHEST 2 VIEWS; 11/01/2023 12:08 pm INDICATION: Signs/Symptoms:Shortness of breath. COMPARISON: None. ACCESSION NUMBER(S): [id number] ORDERING CLINICIAN: BRITTANY CLAYTON FINDINGS: CARDIOMEDIASTINAL SILHOUETTE: Cardiomediastinal silhouette is normal in size and configuration. LUNGS: Lungs are clear. ABDOMEN: No remarkable upper abdominal findings. BONES: No acute osseous changes. IMPRESSION: 1. No evidence of acute cardiopulmonary process. Signed by: Vivek An 11/02/2023 6:57 AM Dictation workstation: [id number] Normal [facility] CBC W Auto Differential pane l (Bld)on 10-21-2023 Basophils (Bld) [#/Vol] 0.05 x10*3/uL Normal 0.00-0.10 [facility] Comment on above: Performed By: #### 5 7021-8 #### EMERITA Farmer ([id number]) [facility] ([facility]) [id number] [place] [address] Basophils/100 WBC (Bld) 0.7 % Normal 0.0-2.0 [facility] Comment on above: Performed By: #### 5 7021-8 #### EMERITA Farmer ([id number]) [facility] ([facility]) [address] [place] [address] Eosinophils (Bld) [#/Vol] 0.07 x10*3/uL Normal 0.00-0.70 [facility] Comment on above: Performed By: #### 5 7021-8 #### EMERITA Farmer ([id number]) [facility] ([facility]) [id number] [place] [address] Eosinophils/100 WBC (Bld) 1.0 % Normal 0.0-6.0 [facility] Comment on above: Performed By: #### 5 7021-8 #### EMERITA Farmer ([id number]) [facility] ([facility]) [address] [place] [address] Erythrocyte distribution width (RBC) [Ratio] 13.0 % Normal 11.5-14.5 [facility] Comment on above: Performed By: #### 5 7021-8 #### EMERITA Farmer ([id number]) [facility] ([facility]) [address] [place] [address] Hematocrit (Bld) [Volume fraction] 52.0 % Normal 41.0-52.0 [facility] Comment on above: Performed By: #### 5 7021-8 #### EMERITA Famrer ([id number]) [facility] ([facility]) [address] [place] [address] Hemoglobin (Bld) [Mass/Vol] 18.1 g/dL High 13.5-17.5 [facility] Comment on above: Performed By: #### 5 7021-8 #### EMERITA Farmer ([id number]) [facility] ([facility]) [address] [place] [address] Immature granulocytes (Bld) [#/Vol] 0.08 x10*3/uL Normal 0.00-0.70 [facility] Comment on above: Performed By: #### 5 7021-8 #### EMERITA Farmer ([id number]) [facility] ([facility]) [address] [place] [address] Immature granulocytes/100 WBC (Bld) 1.2 % High 0.0-0.9 [facility] Comment on above: Result Comment: Ellie ture Granulocyte Count (IG) includes promyelocytes, myelocytes and metamyelocytes but does not include bands. Percent differential counts (%) should be interpreted in the context of the absolute cell counts (cells/UL). Performed By: #### 5 7021-8 #### EMERITA Farmer ([id number]) [facility] ([facility]) [address] [place] [address] Lymphocytes (Bld) [#/Vol] 1.52 x10*3/uL Normal 1.20-4.80 [facility] Comment on above: Performed By: #### 5 7021-8 #### EMERITA Farmer ([id number]) [facility] ([facility]) [address] [place] [address] Lymphocytes/100 WBC (Bld) 22.3 % Normal 13.0-44.0 [facility] Comment on above: Performed By: #### 5 7021-8 #### EMERITA Farmer ([id number]) [facility] ([facility]) [address] [place] [address] MCH (RBC) [Entitic mass] 31.3 pg Normal 26.0-34.0 [facility] Comment on above: Performed By: #### 5 7021-8 #### EMERITA Farmer ([id number]) [facility] ([facility]) [address] [place] [address] MCHC (RBC) [Mass/Vol] 34.8 g/dL Normal 32.0-36.0 [facility] Comment on above: Performed By: #### 5 7021-8 #### EMERITA Farmer ([id number]) [facility] ([facility]) [address] [place] [address] MCV (RBC) [Entitic vol] 90 fL Normal 80-100 [facility] Comment on above: Performed By: #### 5 7021-8 #### EMERITA Farmer ([id number]) [facility] ([facility]) [address] [place] [address] Monocytes (Bld) [#/Vol] 0.64 x10*3/uL Normal 0.10-1.00 [facility] Comment on above: Performed By: #### 5 7021-8 #### EMERITA Farmer ([id number]) [facility] ([facility]) [address] [place] [address] Monocytes/100 WBC (Bld) 9.4 % Normal 2.0-10.0 [facility] Comment on above: Performed By: #### 5 7021-8 #### EMERITA Farmer ([id number]) [facility] ([facility]) [address] [place] [address] 51138 Neutrophils (Bld) [#/Vol] 4.46 x10*3/uL Normal 1.20-7.70 [facility] Comment on above: Result Comment: Perc ent differential counts (%) should be interpreted in the context of the absolute cell counts (cells/uL). Performed By: #### 5 7021-8 #### EMERITA Farmer ([id number]) [facility] ([facility]) [address] [place] [address] 10731 Neutrophils/100 WBC (Bld) 65.4 % Normal 40.0-80.0 [facility] Comment on above: Performed By: #### 5 7021-8 #### EMERITA Farmer ([id number]) [facility] ([facility]) [address] [place] [address] 87104 Nucleated RBC/100 WBC (Bld) [Ratio] 0.0 /100 WBCs Normal 0.0-0.0 [facility] Comment on above: Performed By: #### 5 7021-8 #### EMERITA Farmer ([id number]) [facility] ([facility]) [address] [place] [address] 88850 Platelets (Bld) [#/Vol] 215 x10*3/uL Normal 150-450 [facility] Comment on above: Performed By: #### 5 7021-8 #### EMERITA Farmer ([id number]) [facility] ([facility]) [address] [place] [address] 09508 RBC (Bld) [#/Vol] 5.79 x10*6/uL Normal 4.50-5.90 [facility] Comment on above: Performed By: #### 5 7021-8 #### EMERITA Farmer ([id number]) [facility] ([facility]) [address] [place] [address] 10045 WBC (Bld) [#/Vol] 6.8 x10*3/uL Normal 4.4-11.3 [facility] Comment on above: Performed By: #### 5 7021-8 #### EMERITA Farmer ([id number]) [facility] ([facility]) [address] [place] [address] 76258 Comprehensive metabolic 2000 panelon 10-21-2023 Albumin BCP dye [Mass/Vol] 4.5 g/dL Normal 3.4-5.0 [facility] Comment on above: Performed By: #### 2 4323-8 #### EMERITA Farmer ([id number]) [facility] ([facility]) [address] [place] [address] 83551 ALP [Catalytic activity/Vol] 58 U/L Normal 33-120 [facility] Comment on above: Performed By: #### 2 4323-8 #### EMERITA Farmer ([id number]) [facility] ([facility]) [address] [place] [address] ALT With P-5'-P [Catalytic activity/Vol] 26 U/L Normal 10-52 [facility] Comment on above: Result Comment: Denisse ents treated with Sulfasalazine may generate falsely decreased results for ALT. Performed By: #### 2 4323-8 #### EMERITA Farmer ([id number]) [facility] ([facility]) [address] [place] [address] Anion gap [Moles/Vol] 12 mmol/L Normal 10-20 [facility] Comment on above: Performed By: #### 2 4323-8 #### EMERITA Farmer ([id number]) [facility] ([facility]) [address] [place] [address] AST With P-5'-P [Catalytic activity/Vol] 15 U/L Normal 9-39 [facility] Comment on above: Performed By: #### 2 4323-8 #### EMERITA CABALLERO L ([id number]) [facility] ([facility]) [address] [place] [address] Bilirubin [Mass/Vol] 0.9 mg/dL Normal 0.0-1.2 [facility] Comment on above: Performed By: #### 2 4323-8 #### EMERITA CABALLERO L ([id number]) [facility] ([facility]) [address] [place] [address] Calcium [Mass/Vol] 9.3 mg/dL Normal 8.6-10.6 [facility] Comment on above: Performed By: #### 2 4323-8 #### EMERITA CABALLERO L ([id number]) [facility] ([facility]) [address] [place] [address] Chloride [Moles/Vol] 102 mmol/L Normal 98-107 [facility] Comment on above: Performed By: #### 2 4323-8 #### EMERITA GILESMOTZER L ([id number]) [facility] ([facility]) [address] [place] [address] CO2 [Moles/Vol] 30 mmol/L Normal 21-32 [facility] Comment on above: Performed By: #### 2 4323-8 #### EMERITA GILESMOTZER L ([id number]) [facility] ([facility]) [address] [place] [address] Creatinine [Mass/Vol] 1.18 mg/dL Normal 0.50-1.30 [facility] Comment on above: Performed By: #### 2 4323-8 #### EMERITA GILESMOTZER L ([id number]) [facility] ([facility]) [address] [place] [address] 74164 Glomerular filtration rate/1.73 sq M.predicted 87 mL/min/1.73m*2 Normal >60 [facility] Comment on above: Result Comment: Calc ulations of estimated GFR are performed using the 2020 CKD-EPI Study Refit equation without the race variable for the IDMS-Traceable creatinine methods. https://jasn.asnjournals.org/content//ASN.25046 93436 Performed By: #### 2 4323-8 #### EMERITA Farmer ([id number]) [facility] ([facility]) [address] [place] [address] 47667 Glucose [Mass/Vol] 55 mg/dL Low 74-99 [facility] Comment on above: Performed By: #### 2 4323-8 #### EMERITA Farmer ([id number]) [facility] ([facility]) [address] [place] [address] 90758 Potassium [Moles/Vol] 4.1 mmol/L Normal 3.5-5.3 [facility] Comment on above: Performed By: #### 2 4323-8 #### EMERITA Farmer ([id number]) [facility] ([facility]) [address] [place] [address]27 Protein [Mass/Vol] 6.8 g/dL Normal 6.4-8.2 [facility] Comment on above: Performed By: #### 2 4323-8 #### EMERITA Farmer ([id number]) [facility] ([facility]) [address] [place] [address] 18775 Sodium [Moles/Vol] 140 mmol/L Normal 136-145 [facility] Comment on above: Performed By: #### 2 4323-8 #### EMERITA Farmer ([id number]) [facility] ([facility]) [address] [place] [address] 93065 Urea nitrogen [Mass/Vol] 21 mg/dL Normal 6-23 [facility] Comment on above: Performed By: #### 2 4323-8 #### EMERITA Farmer ([id number]) [facility] ([facility]) [address] [place] [address]1102 Hepatitis B virus surface Ab on 01-18-2023 HBV surface Ab Qn (S) 30.7 mIU/mL High <10.0 Un [facility] Comment on above: Result Comment: Inte rpretive Criteria: <10 mIU/mL Nonreactive >=10 mIU/mL Reactive Biotin interference may cause falsely decreased results. Patients taking a Biotin dose of up to 5 mg/day should refrain from taking Biotin for 24 hours before sample collection. Providers may contact their local laboratory for further information. Performed By: #### 1 6935-9 #### EMERITA Farmer ([id number]) [facility] ([facility]) [id number] [place] [address] M. tuberculosis stim IFN-g a nd spot count panel (Bld)on 01-18-2023 Gamma interferon negative control spot count (Bld) [#] Passed [facility] Comment on above: Performed By: #### 7 4281-7 #### [facility] ([id number]) [address] M. tuberculosis stim IFN-g Ql (Bld) [Interp] Negative [facility] Comment on above: Performed By: #### 7 4281-7 #### [facility] ([id number]) [address] Mitogen stimulated gamma interferon positive control spot count (Bld) [#] Passed [facility] Comment on above: Performed By: #### 7 4281-7 #### [facility] ([id number]) [address] PANEL A SPOT COUNT 1 [facility] Comment on above: Performed By: #### 7 4281-7 #### [facility] ([id number]) [address] PANEL B SPOT COUNT o [facility] Comment on above: Performed By: #### 7 4281-7 #### [facility] ([id number]) [address] Hep Bs Abon 08-03-2018 HBV surface Ab Ql (S) Non Reactive F [facility] Comment on above: Result Comment: Non Reactive: Inconsistent with immunity, less than 10 mIU/mL Reactive: Consistent with immunity, greater than 9.9 mIU/mL Performed at: [address] [id number] PhD Ravinder Morrow Performed By: #### 2 [id number] #### [facility] [address] [place] [address] Vital Signs Date Time Vital Sign Value Performing Clinician Facility 11-29-2024 13:35-0400 Body height 187.96 cm Brittany Clayton MD Work Phone: [facility] 11-29-2024 13:35-0400 Body mass index (BMI) [Ratio] 26 kg/m2 Brittany Clayton MD Work Phone: [facility] 11-29-2024 13:35-0400 Body weight 92.07 kg Brittany Clayton MD Work Phone: [facility] 11-29-2024 13:35-0400 Diastolic blood pressure 80 mm[Hg] Brittany Clayton MD Work Phone: [facility] 11-29-2024 13:35-0400 Heart rate 59 /min Brittany Clayton MD Work Phone: [facility] 11-29-2024 13:35-0400 Systolic blood pressure 133 mm[Hg] Brittany Clayton MD Work Phone: [facility] 08-11-2024 08:28-0400 Body height 188 cm Mary Monet PA Work Phone: [facility] 08-11-2024 08:28-0400 Body mass index (BMI) [Ratio] 26.19 kg/m2 Maryector Gutierrezmer PA Work Phone: [facility] 08-11-2024 08:28-0400 Body weight 92.53 kg Mary Hemmer PA Work Phone: [facility] 08-11-2024 08:28-0400 Diastolic blood pressure 68 mm[Hg] Mary Hemmer PA Work Phone: [facility] 08-11-2024 08:28-0400 Heart rate 66 /min Mary Hemmer PA Work Phone: [facility] 08-11-2024 08:28-0400 SaO2% (BldA) [Mass fraction] 98 % Mary Hemmer PA Work Phone: [facility] 08-11-2024 08:28-0400 Systolic blood pressure 112 mm[Hg] Mary Hemmer PA Work Phone: [facility] 04-11-2024 09:32-0500 Body height 188 cm Mary Hemmer PA Work Phone: [facility] 04-11-2024 09:32-0500 Body mass index (BMI) [Ratio] 26.55 kg/m2 Mary Hemmer PA Work Phone: [facility] 04-11-2024 09:32-0500 Body weight 93.8 kg Mary Hemmer PA Work Phone: [facility] 04-11-2024 09:32-0500 Diastolic blood pressure 84 mm[Hg] Mary Hemmer PA Work Phone: [facility] 04-11-2024 09:32-0500 Heart rate 64 /min Mary Hemmer PA Work Phone: [facility] 04-11-2024 09:32-0500 Respiratory rate 16 /min Mary Hemmer PA Work Phone: [facility] 04-11-2024 09:32-0500 SaO2% (BldA) [Mass fraction] 97 % Mary Hemmer PA Work Phone: [facility] 04-11-2024 09:32-0500 Systolic blood pressure 126 mm[Hg] Mary Hemmer PA Work Phone: [facility] 02-11-2024 09:07-0500 Body height 188 cm Mary Hemmer PA Work Phone: [facility] 02-11-2024 09:07-0500 Body mass index (BMI) [Ratio] 26.78 kg/m2 Mary Hemmer PA Work Phone: [facility] 02-11-2024 09:07-0500 Body weight 94.62 kg Mary Hemmer PA Work Phone: [facility] 02-11-2024 09:07-0500 Diastolic blood pressure 78 mm[Hg] Mary Hemmer PA Work Phone: [facility] 02-11-2024 09:07-0500 Heart rate 63 /min Mary Hemmer PA Work Phone: [facility] 02-11-2024 09:07-0500 Respiratory rate 16 /min Mary Hemmer PA Work Phone: [facility] 02-11-2024 09:07-0500 SaO2% (BldA) [Mass fraction] 98 % Mary Hemmer PA Work Phone: [facility] 02-11-2024 09:07-0500 Systolic blood pressure 132 mm[Hg] Mary Hemmer PA Work Phone: [facility] 12-25-2023 20:15-0400 Body temperature 97.5 [degF] DO Feli Irizarry Work Phone: [facility] 12-25-2023 20:15-0400 Diastolic blood pressure 70 mm[Hg] DO Feli Irizarry Work Phone: [facility] 12-25-2023 20:15-0400 Heart rate 51 /min DO Feli Irizarry Work Phone: [facility] 12-25-2023 20:15-0400 Respiratory rate 16 /min DO Feli Irizarry Work Phone: [facility] 12-25-2023 20:15-0400 SaO2% (BldA) [Mass fraction] 95 % DO Feli Irizarry Work Phone: [facility] 12-25-2023 20:15-0400 Systolic blood pressure 155 mm[Hg] DO Feli Irizarry Work Phone: [facility] 12-25-2023 16:50-0400 Body height 187.96 cm DO Feli Irizarry Work Phone: [facility] 12-25-2023 16:50-0400 Body weight 93.4 kg DO Feli Irizarry Work Phone: [facility] 12-06-2023 13:54-0400 Body mass index (BMI) [Ratio] 27.5 kg/m2 Emily Popil PA-C Work Phone: [facility] 12-06-2023 13:54-0400 Body weight 94.53 kg Emily Popil PA-C Work Phone: [facility] 12-06-2023 13:54-0400 Diastolic blood pressure 78 mm[Hg] Emily Popil PA-C Work Phone: [facility] 12-06-2023 13:54-0400 Heart rate 73 /min Emily Popil PA-C Work Phone: [facility] 12-06-2023 13:54-0400 SaO2% (BldA) [Mass fraction] 98 % Emily Popil PA-C Work Phone: [facility] 12-06-2023 13:54-0400 Systolic blood pressure 142 mm[Hg] Emily Popil PA-C Work Phone: [facility] 10-22-2023 12:32-0400 Body height 185 cm Bijal Tompkins [employer] REPAIRER [facility] 10-22-2023 12:32-0400 Body mass index (BMI) [Ratio] 28.4 kg/m2 Bijal Tompkins [employer] REPAIRER [facility] 10-22-2023 12:32-0400 Body temperature 97.88 [degF] Bijal Tompkins [employer] AND [employer]TURE REPAIRER [facility] 10-22-2023 12:32-0400 Body weight 97.5 kg Bijal Tompkins [employer] AND [employer] REPAIRER [facility] 10-22-2023 12:32-0400 Diastolic blood pressure 70 mm[Hg] Bijal Tompkins [employer] AND [employer] REPAIRER [facility] 10-22-2023 12:32-0400 Heart rate 75 /min Bijal Tompkins [employer] AND [employer] REPAIRER [facility] 10-22-2023 12:32-0400 Respiratory rate 18 /min Bijal Tompkins [employer] AND [employer] REPAIRER [facility] 10-22-2023 12:32-0400 SaO2% (BldA) [Mass fraction] 98 % Bijal Tompkins [employer] AND [employer] REPAIRER [facility] 10-22-2023 12:32-0400 Systolic blood pressure 130 mm[Hg] Bijal Tompkins [employer] AND [employer]TURE REPAIRER [facility] Encounters Encounter Date Encounter Type Care Provider Facility Start: 11-29-2024 End: 11-29-2024 ambulatory Brittany Clayton MD Work Phone: [facility] Work Phone: Start: 11-29-2024 End: 11-29-2024 Patient encounter procedure Bobbi Betancourt MD -[facility] Work Phone: Start: 11-22-2024 End: 11-22-2024 Clinisync Result Encounter Mary Monet PA Work Phone: [facility] External [facility] Unsolicited Start: 11-22-2024 End: 11-22-2024 Clinisync Result Encounter Mary Monet PA Work Phone: [facility] Unsolicited Start: 11-14-2024 End: 11-14-2024 Orders Only Mary Monet PA Work Phone[facility] Comment on above: Abdominal pain, unsp ecified [...] Anxiety Start: 02-11-2024 End: 02-11-2024 ambulatory MARY MONET Not Available Start: 12-25-2023 End: 12-25-2023 Emergency department patient visit DO Feli Irizarry Work Phone: [facility] Work Phone: Start: 12-06-2023 End: 12-06-2023 Office outpatient visit 15 minutes Emily FRANKLINC Work Phone: [facility] Building Comment on above: SOB (shortness of br eath) (Primary Dx); Elevated blood pressure reading; Anxiety; Deviated septum; Snoring Start: 12-06-2023 End: 12-06-2023 [facility] Start: 11-02-2023 End: 11-02-2023 ambulatory EMILY Stewart [facility] Start: 11-01-2023 End: 11-01-2023 ambulatory [facility] Start: 10-22-2023 Bijal Tompkins NP [facility] Start: 10-21-2023 End: 10-21-2023 ambulatory [facility] Start: 01-18-2023 End: 01-18-2023 ambulatory [facility] Start: 01-18-2023 End: 01-18-2023 Encounter for general adult medical examination without abnormal findings [facility] Start: 01-02-2021 End: 01-02-[address] DOCTOR BURKETT Facility:[facility]1 Procedures Date Procedure Procedure Detail Performing Clinician Start: 11-22-2024 US RIGHT UPPER QUADRANT Mary CHEN Work Phone: Start: 11-22-2024 XR ABDOMEN 1V Mary CHEN Work Phone: Start: 12-25-2023 CT angiography of head DO [...] Detail Author Start: 2046 Zoster Vaccines (1 of 2) Zoste r Vaccines (1 of 2) [facility] Start: 08-11-2024 End: 08-11-2025 XR Abdomen Single view XR abdomen 1 view Imaging Routine Abdominal pain, unspecified abdominal location Expected: 08/11/2024, Expires: 08/11/2025 [facility] Work Phone: Comment on above: Expected: 08/11/2024 , Expires: 08/11/2025 Start: 04-11-2024 End: 04-11-2024 Patient encounter procedure [facility] Comment on above: Arrived Start: 02-11-2024 End: 02-10-2025 Basic metabolic 1998 panel - Serum or Plasma Basic metabolic panel Lab Routine Hypoglycemia Elevated BUN Expected: 02/11/2024 (Approximate), Expires: 02/10/2025 [facility] Comment on above: Expected: 02/11/2024 (Approximate), Expires: 02/10/2025 Start: 02-11-2024 End: 02-10-2025 CBC W Auto Differential panel - Blood CBC and differential Lab Routine Elevated red blood cell count Expected: 02/11/2024 (Approximate), Expires: 02/10/2025 [facility] Comment on above: Expected: 02/11/2024 (Approximate), Expires: 02/10/2025 Start: 02-11-2024 End: 02-10-2025 GAD65, IA-D,AND INSULIN AUTOANTIBODY GAD65, IA-D,AND INSULIN AUTOANTIBODY Lab Routine Near syncope Hypoglycemia Expected: 02/11/2024 (Approximate), Expires: 02/10/2025 [facility] Work Phone: Comment on above: Expected: 02/11/2024 (Approximate), Expires: 02/10/2025 Start: 02-11-2024 End: 02-10-2025 Holter monitor study Holter monitor Imaging Routine Near syncope Abnormal ECG Expected: 02/11/2024 (Approximate), Expires: 02/10/2025 [facility] Comment on above: Expected: 02/11/2024 (Approximate), Expires: 02/10/2025 Start: 02-07-2024 End: 02-07-2024 Patient encounter procedure 02/07/2024 2:00 PM EST Office Visit [facility] [address] [facility] [address] [place] [id number] Emily Rai PA-C [address] [facility] [address] [place] [address] [facility] Start: 11-28-2023 COVID-19 Vaccine ( season) COVID-19 Vaccine ( season) [facility] Start: 11-28-2023 Influenza vaccination Influenza Vacc ine (#1) [facility] Start: 11-13-2019 DTaP/Tdap/Td Vaccine s (7 - Td or Tdap) DTaP/Tdap/Td Vaccines (7 - Td or Tdap) [facility] Start: 2014 Hepatitis C screening Hepatitis C Sc [facility] Start: 12-10-2011 HPV Vaccines (1 - Ma le 3-dose series) HPV Vaccines (1 - Male 3-dose series) [facility] Start: 05-15-2010 Hepatitis A Vaccines (2 of 2 - 2-dose series) Hepatitis A Vaccines (2 of 2 - 2-dose series) [facility] Start: 1996 HIV screening HIV Screening [facility] Start: 1996 Lipid panel Lipid Panel [facility] Start: 1996 Yearly Adult Physical Yearly Adult P hysical [facility] Comprehensive metabo lic 2000 panel - Serum or Plasma [facility] Patient Education [place] ([place]) Anxiety, Adult ED Low Blood Sugar, Adult ED [facility] Work Phone: Patient referral [facility] Work Phone: [facility] Immunizations Immunization Date Immunization Notes Care Provider Fa cility 12-22-2022 influenza, injectabl e, quadrivalent, preservative free Emily Popil PA-C Work Phone: [facility] Work Phone: 12-22-2022 influenza virus vacc ine, unspecified formulation Emily Popil PA-C Work Phone: [facility] Work Phone: 04-14-2022 tuberculin skin test ; purified protein derivative solution, intradermal Emily Popil PA-C Work Phone: [facility] Work Phone: 12-04-2021 Influenza, injectabl e, Madin [place] Canine Kidney, preservative free, quadrivalent Emily Popil PA-C Work Phone: [facility] Work Phone: 01-04-2021 influenza, injectabl e, quadrivalent, contains preservative Emily Popil PA-C Work Phone: [facility] Work Phone: 11-12-2009 hepatitis A vaccine, pediatric/adolescent dosage, 2 dose schedule Emily Popil PA-C Work Phone: [facility] Work Phone: 11-12-2009 meningococcal polysaccharide (groups A, C, Y and W-135) diphtheria toxoid conjugate vaccine (MCV4P) Emily Popil PA-C Work Phone: [facility] Work Phone: 11-12-2009 tetanus toxoid, redu stephany diphtheria toxoid, and acellular pertussis vaccine, adsorbed Emily Popil PA-C Work Phone: [facility] Work Phone: 11-12-2009 varicella virus vaccine Seng guillermo Popil PA-C Work Phone: [facility] Work Phone: 11-12-2009 hepatitis A and hepatitis B vaccine Emily Popil PA-C Work Phone: [facility] Work Phone: 11-06-2002 diphtheria, tetanus toxoids and acellular pertussis vaccine, unspecified formulation Emily Popil PA-C Work Phone: [facility] Work Phone: 11-06-2002 measles, mumps and rubella virus vaccine Emily Popil PA-C Work Phone: [facility] Work Phone: 11-06-2002 poliovirus vaccine, inactivated Emily Popil PA-C Work Phone: [facility] Work Phone: 03-27-1998 diphtheria, tetanus toxoids and acellular pertussis vaccine, unspecified formulation Emily Popil PA-C Work Phone: [facility] Work Phone: 03-27-1998 haemophilus influenz ae type b vaccine, conjugate unspecified formulation Emily Popil PA-C Work Phone: [facility] Work Phone: 03-27-1998 measles, mumps and rubella virus vaccine Emily Popil PA-C Work Phone: [facility] Work Phone: 03-27-1998 poliovirus vaccine, inactivated Emily Popil PA-C Work Phone: [facility] Work Phone: 12-26-1997 varicella virus vaccine Tyle r Popil PA-C Work Phone: [facility] Work Phone: 06-07-1997 diphtheria, tetanus toxoids and acellular pertussis vaccine, unspecified formulation Emily Popil PA-C Work Phone: [facility] Work Phone: 06-07-1997 haemophilus influenz ae type b conjugate and Hepatitis B vaccine Emily Popil PA-C Work Phone: [facility] Work Phone: 04-09-1997 diphtheria, tetanus toxoids and acellular pertussis vaccine, unspecified formulation Emily Popil PA-C Work Phone: [facility] Work Phone: 04-09-1997 haemophilus influenz ae type b vaccine, conjugate unspecified formulation Emily Popil PA-C Work Phone: [facility] Work Phone: 04-09-1997 poliovirus vaccine, inactivated Emily Popil PA-C Work Phone: [facility] Work Phone: 02-13-1997 diphtheria, tetanus toxoids and acellular pertussis vaccine, unspecified formulation Emily Popil PA-C Work Phone: [facility] Work Phone: 02-13-1997 haemophilus influenz ae type b conjugate and Hepatitis B vaccine Emily Popil PA-C Work Phone: [facility] Work Phone: 02-13-1997 poliovirus vaccine, inactivated Emily Popil PA-C Work Phone: [facility] Work Phone: 1996 hepatitis B vaccine, pediatric or pediatric/adolescent dosage Emily Popil PA-C Work Phone: [facility] Work Phone: Payers Date Payer Category Payer [facility] [id number] 2023 Self-pay 2023 Unknown EMPLOYEE [employer] CHOICE [id number] 2023-Present [address] [place] [address] [id number] 2023 Unknown [id number] 1996 Unknown [id number] 1996 Unknown [id number] 1996 Unknown [id number] 1995 Unknown [id number] [id number] 1995 Unknown [id number] [id number] 1996 Unknown [id number] [id number] 1996 Unknown [id number] [id number] 1996 Unknown [id number] [id number] 1958 Private Health Insurance [id number] Unknown [id number] [id number] Social History Date Type Detail Facility Start: 12-25-2023 End: 02-11-2024 Tobacco smoking status NHIS Never smoked tobacco (finding) [facility] Start: 1995 Sex Assigned At Male [facility] Start: 11-02-2023 End: 02-11-2024 Tobacco use and exposure Smokeless tobacco non-user [facility] Work Phone: Start: 02-11-2024 End: 11-21-2024 Alcoholic beverage intake Current drinker of alcohol (finding) [facility] Work Phone: Start: 02-08-2024 End: 08-11-2024 History of Social function [facility] Start: 02-08-2024 End: 08-11-2024 [id number] Health Literacy [facility] How often do you nee d to have someone help you when you read instructions, pamphlets, or other written material from your doctor or pharmacy [SILS] Never [facility] Do you belong to any clubs or organizations such as religious groups, unions, fraternal or athletic groups, or school groups? Yes [facility] Are you now , , , , never or living with a partner? Never [facility] How often to you hav e a drink containing alcohol? Monthly or less [facility] Work Phone: How many standard dr inks containing alcohol do you have on a typical day? 1 or 2 [facility] Work Phone: How often do you hav e 6 or more drinks on 1 occasion? Never [facility] Work Phone: Do you feel stress - tense, restless, nervous, or anxious, or unable to sleep at night because your mind is troubled all the time - these days [OSQ] Rather much [facility] (I/We) worried wheth er (my/our) food would run out before (I/we) got money to buy more. Never true [facility] In the past 12 month s, was there a time when you were not able to pay the mortgage or rent on time? No [facility] Start: 1995 Sex assigned at Not on file [facility] Work Phone: Start: 11-26-2023 End: 12-06-2023 Exposure to SARS-CoV-2 (event) Not sure [facility] Sex Male (finding) [facility] NEGATED: Highlighted rowStart: RAYMOND History of tobacco use Passive smoker [facility] Work Phone: Functional Status Date Assessment Result Facility 08-11-2024 Patient Health [facility] ionnaire 2 item (PHQ-2) [Reported] [facility] Clinical Notes 06-07-2020 to 11-14-2024 GUSTAVO Lazo - 11/14/2024 12:20 PM GUSTAVO López - 08/11/2024 8:30 AM GUSTAVO López - 04/11/2024 9:30 AM GUSTAVO Abel - 02/11/2024 9:00 AM EST Note Date & Type Note Facility 11-14-2024 History of Present illness Narrative Pantoprazole refilled documented in this encounter [facility] 08-11-2024 History of Present illness Narrative Images [...] eats, oatmeal and banana in the morning. Swedish yogurt, mixed berries and almonds mid morning. [...] have this done where he works at [employer]. Will notify pt of results once received. ABD non-acute. Advised pt that if symptoms persist/worsen he is to notify office. Could consider CT of ABD in future if needed. Continue healthy diet, continue to stay hydrated. Follow up if symptoms worsen or fail to improve. documented in this encounter [facility] 04-11-2024 History of Present illness Narrative Images from the original note were not included. [facility] Med Refill Additional comments: Metoprolol - he [...] 07/10/2024) for Recheck. documented in this encounter [facility] 02-11-2024 History of Present illness Narrative Images [...] November didn't feel right so went to [facility] and they did a head CT. Does [...] Review Testing Results. documented in this encounter [facility] 12-06-2023 History of Present illness Narrative Subjective [...] any questions regarding their care or treatment. [facility] 2 months Diagnoses and all orders for this visit: SOB (shortness of breath) Elevated blood pressure reading Anxiety - busPIRone (Buspar) 5 mg tablet; Take 1 tablet (5 mg) by mouth 2 times a day. Deviated septum Snoring documented in this encounter [facility] Work Phone: 06-07-2020 Note Patient Outreach (CO VAMN) ELVIN CAMILO ([id number]) 1995 [facility] Date Time Provider Department 06/07/20 LINDA ALCANTARA During your visit today, we recorded the following information about you: Allergies As of Date: 06/07/2020 (Not on File) Date Reviewed: Never Reviewed Order(s):SARS-COVID VACCINE 1ST DOSE APPT [06130IMV] Order #: [id number] FUTURE Problem List As Of Date: 06/07/2020 (None) Encounter Status:Closed by NUBIA CISNEROS on 06/10/20 [facility] Evaluation note No assessment inform ation available [facility] Work Phone: Evaluation note Diagnosis Near syncope- [...] and respiratory abnormality documented in this encounter [facility] Work Phone: Evaluation note* Diagnosis Near syncope- Primary Symptomatic bradycardia Anxiety Anxiety state, unspecified [facility] Diagnosis Abdominal pain, unspecified abdominal location- Primary documented in this encounter [facility]* Diagnosis Abdominal pain, unspecified abdominal location documented in this encounter [facility] Healthcare[facility]* Diagnosis Onset Date Resolution Status Admit Date Abdominal pain acute November 29, 2024 1:24pm [facility] Work Phone: Hospital Discharge instructions Additional Instructions Consider taking something when symptomatic to see that your glucose as discussed. Also consider autoimmune workup if not improving. Hold on taking caffeine for a week or 2 and see how you respond. Follow-up with your primary care physician locally.[facility] Work Phone: Instructions* Instruction Text Your symptoms are likely the result of Anxiety.Healty diet drink plenty of water Follow-up with PCP referrral submitted.If Symptoms worsens to ED. [facility] Reason for referral (narrative)No reason for referral information [facility] Work Phone: Summary Purpose Family History Relationship Condition Age at Onset Recorded Date/T hortensia father Malignant neoplasm Unknown Advance Directives Advance Directive Response Recorded Date/ Time Advance Directives No November 5:14pm Chief Complaint and Reason for Visit Chief Complaint vision changes, sob Chief Complaint Admit Date Referred by Dr Clayton: abdominal pain Sept emb2024 1:24pm Reason for Visit Admit Date Abdominal pain November 29, 2024 1:24pm Additional Source Comments (unrecognized sect ion and content) No Status Records FoundNo Status Records FoundNo Status Records FoundNo Status Records FoundNo Status Records FoundNo Status Records FoundNo Status Records FoundNo Status Records Found INFORMATION SOURCE (unrecogn ized section and content) DATE CREATED AUTHOR 08/17/2018 [facility] DATE CREATED AUTHOR AUTHOR'S ORGANIZ ATION 02/17/2021 [facility] DATE CREATED AUTHOR AUTHOR'S ORGANIZ ATION 04/23/2021 [facility] DATE CREATED AUTHOR AUTHOR'S ORGANIZ ATION 11/07/2023 [facility] DATE CREATED AUTHOR AUTHOR'S ORGANIZ ATION 12/07/2023 [facility] DATE CREATED AUTHOR AUTHOR'S ORGANIZ ATION 02/26/2024 [facility] DATE CREATED AUTHOR AUTHOR'S ORGANIZ ATION 08/05/2024 [facility] DATE CREATED AUTHOR AUTHOR'S ORGANIZ ATION 08/12/2024 [facility] EPIC Care Teams (unrecognized sec tion and content) Team Status: Active Member Role Status Dates Brittany Clayton MD Primary Care Provider Active Team Status: Inactive Member Role Status Dates Feli Irizarry DO Emergency Provider Active Sta rt: December 25, 2023 End: December 25, 2023 Brittany Clayton MD Primary Care Provider Active S tart: December 25, 2023 End: December 25, 2023 Unified Communications Architect Relationship Specialty Start Date End Date Emily Rai PA-C [address] [facility], [address] [place] [address] PCP - General Internal Medicine 11/02/23 Team Status: Inactive Member Role Status Dates Brittany Clayton MD Primary Care Provider Active S tart: November 29, 2024 End: November 29, 2024 Bobbi Betancourt MD Attending Provider Active Start: November 29, 2024 End: November 29, 2024 Goals (unrecognized section and content) Goals may be documented in a n alternate sectionGoals may be documented in an alternate section Reason for Visit (unrecogniz ed [...] BE BASED ON THE PRIMARY CLINICAL RECORDS. [employer] provides no warranty or guarantee of the accuracy or completeness of information in this document.
[2024-12-04 14:02] LABS: Alanine Aminotransferase 22 U/L (16-63); Albumin Globulin Ratio 1.3; Albumin Level 4.0 g/dL (3.4-5.0); Alkaline Phosphatase 61 U/L (46-116); Anion Gap 14.8; Aspartate Amino Transferase 11 U/L (15-37); Blood Urea Nitrogen 15.0 mg/dL (7.0-18.0); Calcium 8.9 mg/dL (8.5-10.1); Carbon Dioxide 26.5 mmol/L (21.0-32.0); Chloride 105 mmol/L (98-107); Estimated GFR (African America >60 (>=60 mL/min/1.73m^2); Estimated GFR (Non-African Ame >60 (>=60 mL/min/1.73m^2); Globulin 3.0 g/dL; Glucose 77 mg/dL (74-106); Lipase 19.0 U/L (16.0-77.0); Potassium 4.3 mmol/L (3.5-5.1); Sodium 142 mmol/L (136-145); Total Protein 7.0 g/dL (6.4-8.2)
[2024-12-04 14:08] LABS: Hematocrit 47.8 % (42.0-54.0); Hemoglobin 16.9 g/dL (14.0-18.0); Immature Granulocytes Abs Auto 0.02 10^3/uL (0.00-0.03); Immature Granulocytes Pct Auto 0.5 % (0.0-0.5); Lymphocytes Absolute Auto 1.0 10^3/uL (1.2-3.8); Mean Corpuscular HGB Conc 35.4 g/dL (29.9-35.2); Mean Corpuscular Hemoglobin 31.5 pg (25.9-34.0); Mean Corpuscular Volume 89.2 fL (80.0-94.0); Platelet Count 201 10^3/uL (150-450); Red Blood Count 5.36 10^6/uL (4.70-6.10); White Blood Count 3.8 10^3/uL (4.0-11.0)
== END 2024-12-04 12:08 | disposition home or self-care (01) ==
PROVIDERS: PCP Physician Assistant; Visit Provider Internal Medicine
DX: R10.9 Unspecified abdominal pain (principal)
CPT/HCPCS: 36415; 80053; 83690; 85025

== ENCOUNTER 2025-01-08 11:56 | Emergency (ER) | payer BC, SELFPAY ==
--- OUTSIDE RECORDS SUMMARY | 2025-01-08 12:03 | XMS_ITS | Encounter Summary ---
Author Organization [facility] Address [address] [place] [address] Phone Care Team Providers Care Spark Plug Assembler Name Role Phone Wallace Christopher PA-C Primary Care Provider [phone] Mary Whittington PA-C Unavailable [phone] Encounter Details Date Type Department Care Team (Late st Contact Info) Description 08/30/2024 Patient Risk Score [facility] Care Management [address] [place] [address] Social History Tobacco Use Types [...] documented as of this encounter Care Teams Spark Plug Assembler Relationship Specialty Start Date End Date Wallace Christopher PA-C [address] [facility], [address] [place] [address] PCP - General Internal Medicine 11/02/23 Mary Whittington PA-C [address] [facility] [address] [place] [address] PCP - Employee ACO PCP 05/27/24 documented as of this encounter
--- OUTSIDE RECORDS SUMMARY | 2025-01-08 12:03 | XMS_ITS | Encounter Summary ---
Author Organization [facility] Address [address] [place] [address] Phone Care Team Providers Care Biscuit Machine Operator Name Role Phone Wallace Christopher PA-C Primary Care Provider [phone] Mary Whittington PA-C Unavailable [phone] Encounter Details Date Type Department Care Team (Late st Contact Info) Description 12/30/2024 Patient Risk Score [facility] Care Management [address] [facility] [address] [place] [address] Social History Tobacco Use Types [...] documented as of this encounter Care Teams Biscuit Machine Operator Relationship Specialty Start Date End Date Wallace Christopher PA-C [address] [facility], [address] [place] [address] PCP - General Internal Medicine 11/02/23 Mary Whittington PA-C 112 [facility] [address] [place] [address] PCP - Employee ACO PCP 05/27/24 documented as of this encounter
--- OUTSIDE RECORDS SUMMARY | 2025-01-08 12:03 | XMS_ITS | Encounter Summary ---
Author Organization [facility] Address [address] [place] [address] Phone Care Team Providers Care Guide Excursion Name Role Phone Wallace Christopher PA-C Primary Care Provider [phone] Mary Whittington PA-C Unavailable [phone] Encounter Details Date Type Department Care Team (Late st Contact Info) Description 05/30/2024 Patient Risk Score [facility] Care Management [address] [place] [address] Social History Tobacco Use Types [...] documented as of this encounter Care Teams Guide Excursion Relationship Specialty Start Date End Date Wallace Christopher PA-C [address] [facility], [address] [place] [address] PCP - General Internal Medicine 11/02/23 Mary Whittington PA-C 112 [facility] [address] [place] [address] PCP - Employee ACO PCP 05/27/24 documented as of this encounter
--- OUTSIDE RECORDS SUMMARY | 2025-01-08 12:03 | XMS_ITS | Encounter Summary ---
Author Organization [facility] Address [address] [place] [address] Phone Care Team Providers Care Licensed Chemical Spray Technician Name Role Phone Wallace Christopher PA-C Primary Care Provider Mary Whittington PA-C Unavailable [phone] Encounter Details Date Type Department Care Team (Late st Contact Info) Description 07/29/2024 Patient Risk Score [facility]CO Care Management [address] [facility] [address] [place] [address] Social History Tobacco Use Types [...] documented as of this encounter Care Teams Licensed Chemical Spray Technician Relationship Specialty Start Date End Date Wallace Christopher PA-C [address] [facility], [address] [place] [address] PCP - General Internal Medicine 11/02/23 Mary Whittington PA-C 112 [facility] [address] [place] [address] PCP - Employee ACO PCP 05/27/24 documented as of this encounter
--- OUTSIDE RECORDS SUMMARY | 2025-01-08 12:03 | XMS_ITS | Encounter Summary ---
Author Organization [facility] Address [address] [place] [address] Care Team Providers Care Housesmith Name Role Phone Unavailable Primary Care Provider Unavailabl e Encounter Details Date Type Department Care Team (Late st Contact Info) Description 04/03/2024 Abstract [facility] [address] [place] [address] Unallocated, Noms Provider, [address] [place] [address] Social History Tobacco Use Types Packs/Day Years [...] or pharmacy? Never 02/08/2024 Social Connection and Isolation Panel Answer Date Recorded In a typical week, how many times do you talk on the phone with family, friends, or neighbors? Twice a week 02/08/2024 How often do you get togethe r with friends or relatives? Twice a week 02/08/2024 How often do you attend chur ch or islam services? 1 to 4 times per year 02/08/2024 Do you belong to any clubs o r organizations such as restorationist groups, unions, fraternal or athletic groups, or [...] heating? Not hard at all 02/08/2024 [facility] - Occupational [...] any time in the past 12 m [facility], were you homeless or living in [...]
--- OUTSIDE RECORDS SUMMARY | 2025-01-08 12:04 | XMS_ITS | Encounter Summary ---
Author Organization [facility] Address [address] [place] [address] Phone Care Team Providers Care Beef Ribber Name Role Phone Wallace Christopher PA-C Primary Care Provider [phone] Wallace Christopher PA-C Unavailable [phone] Mary Whittington PA-C Unavailable [phone] Encounter Details Date Type Department Care Team (Late st Contact Info) Description 01/31/2024 Patient Risk Score [facility]CO Care Management [address] [facility] [address] [place] [address] Social History Tobacco Use Types [...] documented as of this encounter Care Teams Beef Ribber Relationship Specialty Start Date End Date Wallace Christopher PA-C [address] [facility], [facility] [address] [place] [address] PCP - General Internal Medicine 11/02/23 Wallace Christopher PA-C [address] [facility], [facility] [address] [place] [address] PCP - Employee ACO PCP 02/27/24 5 Mary Whittington PA-C [address] [place] [address] [address] [place] [address] PCP - Employee ACO PCP 05/27/24 documented as of this encounter
--- OUTSIDE RECORDS SUMMARY | 2025-01-08 12:04 | XMS_ITS | Encounter Summary ---
Author Organization [facility] Address [address] [place] [address] Phone Care Team Providers Care Thermal Technician Name Role Phone Wallace Christopher PA-C Primary Care Provider [phone] Wallace Christopher PA-C Unavailable Wallace Christopher PA-C Unavailable [phone] Mary Whittington PA-C Unavailable [phone] Reason for Referral * Consultation (Routine) - Authorized Specialty Diagnoses / Procedures Referred By Mikayla courtney Referred To Contact Family Medicine / Primary Care Diagnoses Anxiety Lara Tompkins APRN-CNP Phone: tel: fax: Referral ID Status Reason Start Date Expiration Date Visits Requested Visits Authorized [id number] Authorized Specialty Services Required 10/22/2023 10/21/2024 1 1 Encounter Details Date Type Department Care Team (Late st Contact Info) Description 10/22/2023 Community Orders [facility] [address] [facility] [place] [address] Lara Tompkins APRN-CNP [address] [place], [place] [id number] Anxiety (Primary Dx) Social History Tobacco Use Types Packs/Day Years Used Date Smoking Tobacco: Never Assessed Sex and Gender Information Value Date Recorded Sex Assigned at Not on file Legal Sex Male 2:24 PM EST Gender Identity Not on file Sexual Orientation Not on file documented as of this encounter Functional Status * BP Answer Date of Assessment Author 130/70 10/22/2023 12:32 PM EDT [facility] * Pulse Answer Date of Assessment Author 75 10/22/2023 12:32 PM EDT [facility] documented as of this encounter Plan of Treatment Scheduled Referrals Name Type Priority Associated Diagnoses Orde r Schedule Referral to Primary Care Outpatient Referral Routine Anxiety Expected: 10/22/2023 (Approximate), Expires: 10/21/2024 documented as of this encounter Visit Diagnoses Diagnosis Anxiety- Primary Anxiety state, unspecified documented in this encounter Care Teams Thermal Technician Relationship Specialty Start Date End Date Wallace Christopher PA-C [address] [facility], [facility] [address] [place] [address] PCP - General Internal Medicine 11/02/23 Wallace Christopher PA-C [address] [facility], [facility] [address] [place] [address] PCP - Employee ACO PCP 12/28/23 Wallace Christopher PA-C [address] [facility], [address] [place] [address] PCP - Employee ACO PCP 02/27/24 5 Mary Whittington PA-C [address] [facility] [address] [place] [address] PCP - Employee ACO PCP 05/27/24 documented as of this encounter
--- OUTSIDE RECORDS SUMMARY | 2025-01-08 12:04 | XMS_ITS | Encounter Summary ---
Author Organization [facility] Address [address] [place] [address] Care Team Providers Care Art Librarian Name Role Phone Unavailable Primary Care Provider Unavailabl e Encounter Details Date Type Department Care Team (Late st Contact Info) Description 03/31/2024 Clinisync Result Encounter [facility] External Department Unsolicited Trevon Whittington PA [address] [facility] [address] [place] [address] Social History Tobacco Use Types Packs/Day Years [...] often do you attend chur ch or christian services? 1 to 4 times per year 02/08/2024 Do you belong to any clubs o r organizations such as temple groups, unions, fraternal or athletic groups, or [...] and heating? Not hard at all 02/08/2024 [facility] - Occupational [...] time in the past 12 m [facility], were you homeless or living in a alf (including now)? No 02/08/2024 Sex and Gender [...] EST Narrative 04/01/2024 2:18 [place] [address] Cardiology Report Signed Patient: BARNEY CAMILO MR#: [id number] : 1995 Acct:[id number] Age/Sex: 28 / M ADM Date: 03/14/24 Loc: CARD Attending Dr: TREVON WHITTINGTON Ordering Physician: TREVON WHITTINGTON Date of Service: 03/14/24 Procedure(s): CA 30 day event monitor Accession Number(s): [id number] cc: TREVON WHITTINGTON ; Physician,Non-Staff M.DJalyn [facility] Test Date: 2024-03-31 Pat Name: BARNEY CAMILO Department: Room: - Gender: Male Rn International: : 1995 Requested By: 821 Order Number: [id number] Reading MD: TEJA QUINONES Interpretive Statements Predominant [...] D.O. Signed By: 04/01/24141704/01/241417 DD/ 6 TD/TT: Front Office Developer: Procedure Note Radiology, Radiologist, - 04/01/2024 The [place] [id number] Cardiology Report Signed Patient: BARNEY CAMILOMR#: [id number] : 1995Acct:[id number] Age/Sex: 28 / MADM Date: 03/14/24 Loc: CARD Attending Dr: TREVON WHITTINGTON Ordering Physician: TREVON WHITTINGTON Date of Service: 03/14/24 Procedure(s): CA 30 day event monitor Accession Number(s): [id number] cc: TREVON WHITTINGTON ; Physician,Non-Staff Marcos [facility] Test Date: 2024-03-31 Pat Name: BARNEY CAMILO Department: Room: - Gender: Male Rn International: : 1995 Requested By: 821 Order Number: [id number] Reading MD: TEJA QUINONES Interpretive Statements Predominant [...] sinus tachy is 10min 12sec with rates -[id number] Longest episode of sinus dinora is 1h 12min 47sec with rates between 37-43bpm No VE No atrial fib No pauses Electronically Signed On 04-01-2024 14:17:39 EST by TEJA QUINONES Dictated By: Teja Quinones D.O. Signed By:04/01/24 14104/01/24 141 DD/ 6 TD/TT: Front Office Developer: us Trevon CHEN IMG XR PROCEDURES Final Result documented in this encounter Visit Diagnoses Not on filedocumented in this encounter
--- OUTSIDE RECORDS SUMMARY | 2025-01-08 12:04 | XMS_ITS | Encounter Summary ---
Author Organization [facility] Address [address] [place] [address] Phone Care Team Providers Care Devulcanizer Loader Name Role Phone Wallace Christopehr PA-C Primary Care Provider [phone] Wallace Christopher PA-C Unavailable [phone] Wallace Christopher PA-C Unavailable [phone] Mary Whittington PA-C Unavailable [phone] Encounter Details Date Type Department Care Team (Late st Contact Info) Description 08/30/2023 Patient Risk Score [facility] Care Management [address] [place] [address] Social History Tobacco Use Types [...] on filedocumented in this encounter Care Teams Devulcanizer Loader Relationship Specialty Start Date End Date Wallace Christopher PA-C [address] [facility], [address] [place] [address] PCP - General Internal Medicine 11/02/23 Wallace Christopher PA-C [address] [facility], [address] [place], [place] [id number] PCP - Employee ACO PCP 12/28/23 Wallace Christopher PA-C [address] [facility], [facility] [address] [place] [address] PCP - Employee ACO PCP 02/27/24 5 Mary Whittington PA-C [address] [place] [address] [address] [place] [address] PCP - Employee ACO PCP 05/27/24 documented as of this encounter
--- OUTSIDE RECORDS SUMMARY | 2025-01-08 12:04 | XMS_ITS | Clinical Summary ---
Author Organization [facility] Address [address] [place] [address] Care Team Providers Care Taxi Dancer Name Role Phone Unavailable Primary Care Provider Unavailabl e Allergies No known active allergies Medications pantoprazole (ProtoNix) 40 MG EC tabletIndication s:Abdominal pain, unspecified abdominal location Take 1 tablet (40 mg) by mouth in the morning for 14 days. Take before meals. Do not crush, chew, or split. 14 tablet 11/14/2024 Active Active Problems Problem Noted Date Diagnosed Date Hypoglycemia 02/11/2024 Near syncope 02/11/2024 Elevated red blood cell count 02/11/2024 Anxiety 11/30/2023 Deviated septum 11/02/2023 Snoring 11/02/2023 SOB (shortness of breath) 11/02/2023 Dizziness and giddiness 01/02/2021 Resolved Problems Problem Noted Date Diagnosed Date Resolved Date Elevated blood pressure reading 11/02/2023 04/11/2024 Encounters Date Type Department Care Team Description 12/04/2024 Clinisync Result Encounter NOMS External Department Unsolicited Provider, Generic External Data 11/29/2024 [facility] [address] [facility] [address] [place] [address] Trevon Whittington PA 11/23/2024 Telephone [facility] [address] [facility] [address] [place] [address] Brittany Reyes MD 11/22/2024 Abstract [facility] [address] [place] [phone] Unallocated, Noms MD Miko 11/22/2024 Abstract [facility] [address] [place] [address] Unallocated, Noms MD Miko 11/22/2024 Clinisync Result Encounter NOMS External Department Unsolicited Trevon Whittington PA 11/22/2024 Clinisync Result Encounter NOMS External Department Unsolicited Trevon Whittington PA 11/14/2024 Orders Only [facility] [address] [place] [address] Trevon Whittington PA Abdominal pain, unspecified abdominal location from [...] How often do you attend chur or confucianism services? 1 to 4 times per year 02/08/2024 Do you belong to any clubs o r organizations such as jainism groups, unions, fraternal or athletic groups, or [...] Recorded Patient Health Questionnaire-2 Score 0 08/11/2024 [facility] Occupat ional [facility] - Occupational Stress Questionnaire Answer Date Recorded [...] any time in the past 12 m [facility], were you homeless or living in [...] EDT Plan of Treatment Not on file Procedures Procedure Name Priority Date/Time Associated Diagnosis Comments ALL CBC WITH AUTO DIFF Routine 12/04/2024 12:45 PM EDT [facility] LIPASE Routine 12/04/2024 12:45 PM EDT [facility] CMP (CMP) (FOR REMOTE [facility] USE) Routine 12/04/2024 12:45 PM EDT US RIGHT UPPER QUADRANT 11/22/2024 10:01 AM EDT XR ABDOMEN 1V 11/22/2024 9:59 AM EDT from Last 3 Months Results * [facility] LIPASE (12/04/2024 12:45 PM EDT) LIPASE 19.0 16.0 - 77.0 U/L [facility] 12/04/2024 12:4 5 PM EDT 12/04/2024 12:55 PM EDT Narrative [facility] - 12/04/2024 2:13 PM EDT us Generic External Data Provider JOSY F inal Result [facility] * (ABNORMAL) [facility] CMP (CMP) (FOR REMOTE [facility] USE) (12/04/2024 12:45 PM EDT) SODIUM 142 136 - 145 mmol/L TB[facility] POTASSIUM 4.3 3.5 - 5.1 mmol/L TB[facility] CHLORIDE 105 98 - 107 mmol/L TBH CARBON DIOXIDE 26.5 21.0 - 32.0 mmol/L TB[facility] ANION GAP 14.8 TBH GLUCOSE 77 74 - 106 mg/dL TBH BLOOD UREA NITROGEN 15.0 7.0 - 18.0 mg/dL [facility] CREATININE 1.08 0.70 - 1.30 mg/dL TBH TBH EGFR-AF CAMBODIAN >60 >=60 mL/min/1. 73m 2 TBH TBH EGFR-NON AF CAMBODIAN >60 >=60 mL/min/1. 73m 2 TBH BUN CREATININE RATIO 13.9 TBH CALCIUM 8.9 8.5 - 10.1 mg/dL TBH BILIRUBIN TOTAL 0.8 0.2 - 1.0 mg/dL TB[facility] ASPARTATE AMINO TRANSFERASE 11(L) 15 - 37 U/L [facility] ALANINE AMINOTRANSFERASE 22 16 - 63 U/L [facility] ALKALINE PHOSPHATASE 61 46 - 116 U/L [facility] TOTAL PROTEIN 7.0 6.4 - 8.2 g/dL [facility] ALBUMIN LEVEL 4.0 3.4 - 5.0 g/dL [facility] GLOBULIN 3.0 g/dL [facility] ALBUMIN GLOBULIN RATIO 1.3 [facility] 12/04/2024 12:4 5 PM EDT 12/04/2024 12:55 PM EDT Narrative [facility] - 12/04/2024 2:13 PM EDT Generic External Data Provider [facility] F [facility]al [facility] * (ABNORMAL) ALL CBC WITH AUTO DIFF (12/04/2024 12:45 PM EDT) TB[facility] WBC 3.8(L) 4.0 - 11.0 10 3/uL TBH TBH RBC 5.36 4.70 - 6.10 10 6/uL TBH TBH HGB 16.9 14.0 - 18.0 g/dL TBH TBH HCT 47.8 42.0 - 54.0 % TBH TBH MCV 89.2 80.0 - 94.0 fL TBH TBH MCH 31.5 25.9 - 34.0 pg TBH TBH MCHC 35.4(H) 29.9 - 35.2 g/dL TBH TBH RDW 12.3 11.0 - 15.0 % TBH TBH PLT 201 150 - 450 10 3/uL TBH TBH MPV 10.1 9.5 - 13.5 fL TBH NEUTROPHILS PERCENT AUTO 58.9 43.0 - 75.0 % TBH LYMPHOCYTES PERCENT AUTO 26.1 20.5 - 60.0 % TBH MONOCYTES PERCENT AUTO 12.4(H) 1.7 - 12.0 % TBH TBH EO % 1.6 0.9 - 7.0 % TBH BASOPHILS PERCENT AUTO 0.5 0.2 - 2.0 % TBH IMMATURE GRANULOCYTES PCT AUTO 0.5 0.0 - 0.5 % TBH NEUTROPHILS ABSOLUTE AUTO 2.2 1.4 - 6.5 10 3/uL TBH LYMPHOCYTES ABSOLUTE AUTO 1.0(L) 1.2 - 3.8 10 3/uL TBH MONOCYTES ABSOLUTE AUTO 0.5 0.3 - 0.8 10 3/uL TBH TBH EO # 0.1 0.0 - 0.7 10 3/uL TBH BASOPHILS ABSOLUTE AUTO 0.0 0.0 - 0.1 10 3/uL TBH IMMATURE GRANULOCYTES ABS AUTO 0.02 0.00 - 0.03 10 3/uL [facility] 12/04/2024 12:4 5 PM EDT 12/04/2024 12:55 PM EDT Narrative CLIN[facility] - 12/04/2024 2:17 PM EDT us Generic External Data Provider [facility]NC F inal Result [facility] * US RIGHT UPPER QUADRANT (11/22/2024 10:01 AM EDT) Anatomical Region Laterality Modality Other 11/22/2024 10:0 1 AM EDT Narrative 11/22/2024 10:04 AM EDT The [address] [address] Ultrasound Report Signed Patient: BARNEY CAMILO MR#: [id number] : 1995 Acct:[id number] Age/Sex: 28 / M ADM Date: 11/22/24 Loc: US Attending Dr: TREVON WHITTINGTON Ordering Physician: TREVON WHITTINGTON Date of Service: 11/22/24 Procedure(s): US right upper quadrant Accession Number(s): [id number] cc: TREVON WHITTINGTON [place] [id number] Patient Name: BARNEY CAMILO MRN: [id number] date: 1995 Sex: M Assigned Patient Location: US Current Patient Location: US Accession/Order Number: [id number] Exam Date: 11/22/2024 07:02 Report Date: 11/22/2024 10:01 At the request of: TREVON WHITTINGTON Procedure: US right upper quadrant LIMITED RIGHT [...] THE RIGHT UPPER QUADRANT. Impression dictated by: Trevon Guidry M.D. 11/22/2024 10:01 AM Dictation Location: [place] [address] Electronically authenticated by: [id number] Y Date: 11/22/2024 10:01 Dictated By: Trevon Guidry M.D. Signed By: 11/22/24 1004 DD/ 1001 TD/TT: Research Test Engine Operator: Procedure Note Radiology, Radiologist, - 11/22/2024 [place] [address] Ultrasound Report Signed Patient: BARNEY CAMILOMR#: [id number] : 1995Acct:[id number] Age/Sex: 28 / MADM Date: 11/22/24 Loc: US Attending Dr: TREVON WHITTINGTON Ordering Physician: TREVON WHITTINGTON Date of Service: 11/22/24 Procedure(s): US right upper quadrant Accession Number(s): [id number] cc: TREVON WHITTINGTON [place] [id number] Patient Name: BARNEY CAMILO MRN: [id number] date: 1995 Sex: M Assigned Patient Location: US Current Patient Location: US Accession/Order Number: [id number] Exam Date: 11/22/2024 07:02 Report Date: 11/22/2024 10:01 At the request of: TREVON WHITTINGTON Procedure: US right upper quadrant LIMITED RIGHT UPPER QUADRANT ABDOMINAL ULTRASOUND CLINICAL HISTORY: RIGHT UPPER QUADRANT PAIN x 2 WEEKS R10.11 COMPARISON: None The gallbladder is physiologically distended without shadowing calculi,wall thickening or pericholecystic fluid. No intra- or extrahepatic biliary dilatation is evident. The common duct measures 2-3 mm. The liver isnormal in echogenicity. No intrahepatic masses are seen. There is appropriate hepatopetal flow within the main portal vein. The pancreas shows no significant sonographic abnormality. Cursory evaluation of the rightkidney reveals no hydronephrosis or fluid within Barajas's pouch. US/US right upper quadrant IMPRESSION: NEGATIVE ULTRASOUND OF THE RIGHT UPPER QUADRANT. Impression dictated by: Trevon Guidry M.D. 11/22/2024 10:01 AM Dictation Location: [place] [address] Electronically authenticated by: [id number] Y Date: 0:01 Dictated By: Trevon Guidry M.D. Signed By:11/22/24 1004 DD/ 1001 TD/TT: Research Test Engine Operator: us Trevon Whittington PA [facility] Final Result * XR ABDOMEN 1V (11/22/2024 9:59 AM EDT) Anatomical Region Laterality Modality Other 11/22/2024 9:5 9 AM EDT Narrative 11/22/2024 10:01 AM EDT [address] [address] XRay Report Signed Patient: BARNEY CAMILO MR#: [id number] : 1995 Acct:[id number] Age/Sex: 28 / M ADM Date: 11/22/24 Loc: US Attending Dr: TREVON WHITTINGTON Ordering Physician: TREVON WHITTINGTON Date of Service: 11/22/24 Procedure(s): XR abdomen 1V Accession Number(s): [id number] cc: TREVON WHITTINGTON [place] [address] Patient Name: BARNEY CAMILO MRN: [id number] date: 1995 Sex: M Assigned Patient Location: US Current Patient Location: US Accession/Order Number: [id number] Exam Date: 11/22/2024 07:15 Report Date: 11/22/2024 09:59 At the request of: TREVON WHITTINGTON Procedure: XR abdomen 1V SINGLE VIEW ABDOMEN [...] NO OTHER ACUTE FINDINGS. Impression dictated by: Trevon Guidry M.D. 11/22/2024 9:59 AM Dictation Location: [place] [address] Electronically authenticated by: [id number] Y Date: 11/22/2024 09:59 Dictated By: Trevon Guidry M.D. Signed By: 11/22/24 1001 DD/ 0959 TD/TT: Research Test Engine Operator: Procedure Note Radiology, Radiologist, - 11/22/2024 [facility] [address] [place] [address] XRay Report Signed Patient: BARNEY CAMILOMR#: [id number] : 1995Acct:[id number] Age/Sex: 28 / MADM Date: 11/22/24 Loc: US Attending Dr: TREVON WHITTINGTON Ordering Physician: TREVON WHITTINGTON Date of Service: 11/22/24 Procedure(s): XR abdomen 1V Accession Number(s): [id number] cc: TREVON WHITTINGTON [address] [address] Patient Name: BARNEY CAMILO MRN: [id number] date: 1995 Sex: M Assigned Patient Location: US Current Patient Location: US Accession/Order Number: [id number] Exam Date: 11/22/2024 07:15 Report Date: 11/22/2024 09:59 At the request of: TREVON WHITTINGTON Procedure: XR abdomen 1V SINGLE VIEW ABDOMEN COMPARISON: None CLINICAL DATA: Generalized abdominal pain for the past 1 to 2 weeks. Supine view of the abdomen and pelvis was obtained. There is stool alongthe colon, greatest at the rectum. There are no dilated small bowel loops.No soft tissue masses or suspect renal calculi are noted. The bonystructures are intact. XR/XR abdomen 1V IMPRESSION: MILD TO MODERATE COLONIC STOOL. NO OTHER ACUTE FINDINGS. Impression dictated by: Trevon Guidry M.D. 11/22/2024 9:59 AM Dictation Location: [place] [address] Electronically authenticated by: [id number] Y Date: 509:59 Dictated By: Trevon Guidry M.D. Signed By:11/22/24 1001 DD/ 0959 TD/TT: Research Test Engine Operator: Trevon Whittington PA [facility] Final Result from Last 3 Months Insurance [facility]
--- OUTSIDE RECORDS SUMMARY | 2025-01-08 12:04 | XMS_ITS | Encounter Summary ---
Author Organization [facility] Address [address] [place] [address] Care Team Providers Care Clinical Care Manager Name Role Phone Unavailable Primary Care Provider Unavailabl e Encounter Details Date Type Department Care Team (Late st Contact Info) Description 10/25/2023 Orders Only [facility] [address] [place] [address] Unallocated, Noms Provider, [address] [place] [address] Social History Tobacco Use Types Packs/Day Years [...] * SCANNED LABS (10/25/2023 8:45 AM EDT) us Noms Provider Unallocated LAB CHG PERFORMABLE S Final Result documented in this encounter Visit Diagnoses Not on filedocumented in this encounter
--- OUTSIDE RECORDS SUMMARY | 2025-01-08 12:04 | XMS_ITS | Encounter Summary ---
Author Organization [facility] Address [address] [place] [address] Phone Care Team Providers Care Pulp Piler Name Role Phone Wallace Christopher PA-C Primary Care Provider [phone] Mary Whittington PA-C Unavailable Encounter Details Date Type Department Care Team (Late st Contact Info) Description 09/29/2024 Patient Risk Score [facility]CO Care Management [address] [place] [address] Social History Tobacco Use Types [...] documented as of this encounter Care Teams Pulp Piler Relationship Specialty Start Date End Date Wallace Christopher PA-C [address] [facility], [address] [place] [address] PCP - General Internal Medicine 11/02/23 Mary Whittington PA-C 112 [facility] [address] [place] [address] PCP - Employee ACO PCP 05/27/24 documented as of this encounter
--- OUTSIDE RECORDS SUMMARY | 2025-01-08 12:04 | XMS_ITS | Encounter Summary ---
Author Organization [facility] Address [address] [place] [address] Care Team Providers Care Dry Cleaning Attendant Name Role Phone Unavailable Primary Care Provider Unavailabl e Encounter Details Date Type Department Care Team (Late st Contact Info) Description 11/22/2024 Abstract [facility] [address] [place] [address] Unallocated, Noms Provider, [address] [place] [address] Social History Tobacco Use Types Packs/Day Years [...] any clubs o r organizations such as christian groups, unions, fraternal or athletic groups, or [...] Recorded Patient Health Questionnaire-2 Score 0 08/11/2024 [facility] of Occupat ional [...] any time in the past 12 m [facility], were you homeless or living in a [...]
--- OUTSIDE RECORDS SUMMARY | 2025-01-08 12:04 | XMS_ITS | Encounter Summary ---
Author Organization [facility] Address [address] [place] [address] Phone Care Team Providers Care Healthcare Network Consultant Name Role Phone Wallace Christopher PA-C Primary Care Provider [phone] Wallace Christopher PA-C Unavailable [phone] Wallace Christopher PA-C Unavailable [phone] Mary Whittington PA-C Unavailable [phone] Encounter Details Date Type Department Care Team (Late st Contact Info) Description 10/31/2023 Patient Risk Score [facility]CO Care Management [address] [place] [address] Social History Tobacco Use Types [...] as of this encounter Functional Status * Question Answer Date of Assessment Author BP 148/84 11/02/2023 1:28 PM EDT Ricarda Pittman MA Pulse 86 11/02/2023 1:28 PM EDT Ricarda Pittman MA * Communicable Disease Screening Question Answer Date of Assessment Author Do you have any of the follo wing new or worsening symptoms? None of these 11/01/2023 12:01 PM EDT Isaiah Pollard A * Question Answer Date of Assessment Author Little interest or pleasure in doing things Not at all 11/02/2023 1:27 PM EDT Ricarda Pittman M A Feeling down, depressed, or hopeless Not at all 11/02/2023 1:27 PM EDT Ricarda Pittman M A * Over the past 2 weeks, how [...] 1:27 PM EDT Ricarda Pittman MA * [place] Suicide Severity Rating Scale (Screener/Recent Self-Report) Question Answer Date of Assessment Author 1. Wish to be (Past 1 Month) No 024 1:27 PM EDT Ricarda Pittman MA 2. Non-Specific Active Suici essie Thoughts (Past 1 Month) No 11/02/2023 1:27 PM EDT Ricarda Pittman MA 6. Suicidal Behavior (Lifetime) No 4 1:27 PM EDT Ricarda Pittman MA documented as of this encounter Plan of Treatment Not on file documented as of this encounter Visit Diagnoses Not on filedocumented in this encounter Care Teams Healthcare Network Consultant Relationship Specialty Start Date End Date Wallace Christopher PA-C [address] [address] PCP - General Internal Medicine 11/02/23 Wallace Christopher PA-C [address] [place] [address] PCP - Employee ACO PCP 12/28/23 Wallace Christopher PA-C [address] [facility], [facility] [address] [place], [place] [address] PCP - Employee ACO PCP 02/27/24 5 Mary Whittington PA-C 112 [facility] 110 [place] [address] PCP - Employee ACO PCP 05/27/24 documented as of this encounter
--- OUTSIDE RECORDS SUMMARY | 2025-01-08 12:04 | XMS_ITS | Encounter Summary ---
Author Organization [facility] Address [address] [place] [address] Phone Care Team Providers Care Assigner Name Role Phone Wallace Christopher PA-C Primary Care Provider [phone] Mary Whittington PA-C Unavailable [phone] Encounter Details Date Type Department Care Team (Late st Contact Info) Description 06/29/2024 Patient Risk Score ACO Care Management [address] [place] [address] Social History Tobacco Use [...] documented as of this encounter Care Teams Assigner Relationship Specialty Start Date End Date Wallace Christopher PA-C [address] [facility], [address] [place] [address] PCP - General Internal Medicine 11/02/23 Mary Whittington PA-C 112 [facility] 110 [place] [address] PCP - Employee ACO PCP 05/27/24 documented as of this encounter
--- OUTSIDE RECORDS SUMMARY | 2025-01-08 12:04 | XMS_ITS | Encounter Summary ---
Author Organization [facility] Address [address] [place] [address] Phone Care Team Providers Care Firesetter Name Role Phone Wallace Christopher PA-C Primary Care Provider [phone] Wallace Christopher PA-C Unavailable [phone] Wallace Christopher PA-C Unavailable [phone] Mary Whittington PA-C Unavailable [phone] Encounter Details Date Type Department Care Team (Late st Contact Info) Description 11/30/2023 Patient Risk Score ACO Care Management [address] [place] [address] Social History Tobacco Use Types [...] documented as of this encounter Care Teams Firesetter Relationship Specialty Start Date End Date Wallace Christopher PA-C [address] [facility], [facility] [address] [place] [address] PCP - General Internal Medicine 11/02/23 Wallace Christopher PA-C [address] [facility], [facility] [address] [place] [address] PCP - Employee ACO PCP 12/28/23 Wallace Christopher PA-C [address] [facility], [facility] [address] [place] [address] PCP - Employee ACO PCP 02/27/24 5 Mary Whittington PA-C 112 [facility] 110 [place] [address] PCP - Employee ACO PCP 05/27/24 documented as of this encounter
--- OUTSIDE RECORDS SUMMARY | 2025-01-08 12:04 | XMS_ITS | Encounter Summary ---
Author Organization [facility] Address [address] [place] [address] Phone Care Team Providers Care Cabin Service Agent Name Role Phone Wallace Christopher PA-C Primary Care Provider [phone] Mary Whittington PA-C Unavailable [phone] Encounter Details Date Type Department Care Team (Late st Contact Info) Description 10/30/2024 Patient Risk Score ACO Care Management [address] [facility] [address] [place] [address] Social History Tobacco Use Types [...] documented as of this encounter Care Teams Cabin Service Agent Relationship Specialty Start Date End Date Wallace Christopher PA-C [address] [facility], [address] [place] [address] PCP - General Internal Medicine 11/02/23 Mary Whittington PA-C 112 [facility] 110 [place] [address] PCP - Employee ACO PCP 05/27/24 documented as of this encounter
--- OUTSIDE RECORDS SUMMARY | 2025-01-08 12:04 | XMS_ITS | Encounter Summary ---
Author Organization [facility] Address [address] [place] [address] Care Team Providers Care Runway Model Name Role Phone Unavailable Primary Care Provider Unavailabl e Encounter Details Date Type Department Care Team (Late st Contact Info) Description 11/01/2023 Clinisync Result Encounter NOMS External Department Unsolicited Brittany Reyes MD 112 [facility] [address] [place] [address] Social History Tobacco Use Types Packs/Day Years [...] Signs/Symptoms:Shortness of breath. COMPARISON: None. ACCESSION NUMBER(S): [id number] ORDERING CLINICIAN: BRITTANY REYES FINDINGS: CARDIOMEDIASTINAL SILHOUETTE: Cardiomediastinal silhouette is normal in size and configuration. LUNGS: Lungs are clear. ABDOMEN: No remarkable upper abdominal findings. BONES: No acute osseous changes. IMPRESSION: 1. No evidence of acute cardiopulmonary process. Signed by: Vivek An 11/02/2023 6:57 AM Dictation workstation: [id number] Procedure Note Radiology, Radiologist, - 11/02/2023 Interpreted By: Vivek An, STUDY: XR CHEST 2 VIEWS; 11/01/2023 12:08 pm INDICATION: Signs/Symptoms:Shortness of breath. COMPARISON: None. ACCESSION NUMBER(S): [id number] ORDERING CLINICIAN: BRITTANY REYES FINDINGS: CARDIOMEDIASTINAL SILHOUETTE: Cardiomediastinal silhouette is normal in size and configuration. LUNGS: Lungs are clear. ABDOMEN: No remarkable upper abdominal findings. BONES: No acute osseous changes. IMPRESSION: 1. No evidence of acute cardiopulmonary process. Signed by: Vivek An 11/02/2023 6:57 AM Dictation workstation: [id number] Brittany Reyes MD IMG XR PROCEDURES Final Result documented in this encounter Visit Diagnoses Not on filedocumented in this encounter
--- OUTSIDE RECORDS SUMMARY | 2025-01-08 12:04 | XMS_ITS | Encounter Summary ---
Author Organization [facility] Address [address] [place] [address] Care Team Providers Care Weaving Supervisor Name Role Phone Unavailable Primary Care Provider Unavailabl e Encounter Details Date Type Department Care Team (Late st Contact Info) Description 11/02/2023 Orders Only [facility] [address] [place] [address] Unallocated, Noms Provider, [address] [place] [address] Social History Tobacco Use Types Packs/Day Years [...]
--- OUTSIDE RECORDS SUMMARY | 2025-01-08 12:04 | XMS_ITS | Encounter Summary ---
Author Organization [facility] Address [address] [place] [address] Phone Care Team Providers Care Carpenter Assistant Name Role Phone Wallace Christopher PA-C Primary Care Provider [phone] Wallace Christopher PA-C Unavailable [phone] Wallace Christopher PA-C Unavailable [phone] Mary Whittington PA-C Unavailable [phone] Encounter Details Date Type Department Care Team (Late st Contact Info) Description 09/30/2023 Patient Risk Score [facility] Care Management [address] [place] [address] Social History Tobacco Use Types [...] on filedocumented in this encounter Care Teams Carpenter Assistant Relationship Specialty Start Date End Date Wallace Christopher PA-C [address] [facility], [address] [place] [address] PCP - General Internal Medicine 11/02/23 Wallace Christopher PA-C [address] [facility], [address] [place], [place] [address] PCP - Employee ACO PCP 12/28/23 Wallace Christopher PA-C [address] [facility], [facility] [address] [place] [address] PCP - Employee ACO PCP 02/27/24 5 Mary Whittington PA-C [address] [place] [address] [address] [place] [address] PCP - Employee ACO PCP 05/27/24 documented as of this encounter
--- OUTSIDE RECORDS SUMMARY | 2025-01-08 12:04 | XMS_ITS | Encounter Summary ---
Author Organization [facility] Address [address] [place] [address] Phone Care Team Providers Care Planishing Hammer Operator Name Role Phone Wallace Christopher PA-C Primary Care Provider [phone] Wallace Christopher PA-C Unavailable [phone] Wallace Christopher PA-C Unavailable [phone] Mary Whittington PA-C Unavailable [phone] Encounter Details Date Type Department Care Team (Late st Contact Info) Description 07/01/[address] [facility] [place] [facility] [address] [place] [address] Social History Tobacco Use Types [...] on filedocumented in this encounter Care Teams Planishing Hammer Operator Relationship Specialty Start Date End Date Wallace Christopher PA-C [address] [facility], [address] [place] [address] PCP - General Internal Medicine 11/02/23 Wallace Christopher PA-C [address] [facility], [address] [place], [place] [id number] PCP - Employee ACO PCP 12/28/23 Wallace Christopher PA-C [address] [facility], [facility] [address] [place] [address] PCP - Employee ACO PCP 02/27/24 5 Mary Whittington PA-C [address] [place] [address] [address] [place] [address] PCP - Employee ACO PCP 05/27/24 documented as of this encounter
--- OUTSIDE RECORDS SUMMARY | 2025-01-08 12:04 | XMS_ITS | Encounter Summary ---
Author Organization [facility] Address [address] [place] [address] Care Team Providers Care Pigment Furnace Tender Name Role Phone Unavailable Primary Care Provider Unavailabl e Encounter Details Date Type Department Care Team (Late st Contact Info) Description 02/09/2024 Abstract [facility] [address] [place] [address] Unallocated, [facility] Provider, [address] [place] [address] Social History Tobacco Use Types Packs/Day Years [...] often do you attend chur ch or sabianism services? 1 to 4 times per year [...] and heating? Not hard at all 02/08/2024 [facility] - Occupational [...] any time in the past 12 m [facility], were you homeless or living in a correction (including now)? No 02/08/2024 Sex and Gender Information Value Date Recorded Sex Assigned at Not on file Legal Sex Male 7:20 PM EDT Gender Identity Not on file Sexual Orientation Not on file documented as of this encounter Functional Status * AUDIT-C Score Answer Date of Assessment Author 1 [...]
--- OUTSIDE RECORDS SUMMARY | 2025-01-08 12:04 | XMS_ITS | CCD ---
Author Organization [facility] Care Team Providers Care Nurse Wound Care Name Role Phone DR NILES BURKETT Primary Care Unavailable BARRETT RENEE Consulting Unavailable BARRETT RENEE Attending Unavailable BARRETT RENEE Admitting Unavailable BRITTANY CLAYTON Referring Unavailable EMILY RAI Primary Care Unavailable EMILY RAI Attending Unavailable BIJAL TOMPKINS Referring Unava ilable EMILY RAI Primary Care Unavailable EMILY RAI Attending Unavailable EMILY RAI Primary Care Unavailable DO Feli Irizarry Emergency Provider [phone] MD Brittany Clayton Primary Care Provider [phone] Unavailable Primary Care Provider UnavailEmily Clement PA-C Primary Care Provider Bijal Tompkins Unavailable Chasity Nunn Unavailable Bijal Tompkins NP Unavailable [phone] Feli Irizarry Admitting Unavailable Feli Irizarry Attending Unavailable Brittany Clayton Primary Care Unavailable MARY MONET Attending Unavailable MARY MONET Attending Unavailable MARY MONET Attending Unavailable Brittany Clayton MD Primary Care Provider Bobbi Betancourt MD Attending Provider Allergies Allergy Classification Reported Allergen(s) Allergy Type Date of Onset Reaction(s) Facility (1 source) ALLERGIES NOT ON FILE; Translations: [ALLERGIES NOT ON FILE] Propensity to adverse reactions (disorder) [facility] Medications Current Medications Medication Drug Class(es) Dates [...] 25, 2023 12:00am November 29, 2024 1:36pm [place] (No Known Home Meds) (1 source) Start: 11-29-2024 [place] (No Kn own Home Meds) Active November 29, 2024 12:00am pantoprazole 40 mg delayed release oral tablet (7 sources) Proton Pump Inhibitor Start: 08-11-2024 End: 11-28-2024 take 1 tablet by mouth before mealtime pantoprazole (ProtoNix) 40 MG EC tablet Indications: Abdominal pain, unspecified abdominal location Take 1 tablet (40 mg) by mouth in the morning for 14 days. Take before meals. Do not crush, chew, or split. 14 tablet 11/14/2024 Active Completed/Discontinued Medications Medication Drug Class(es) Dates [...] hypertension] Onset: 11-02-2023 Episodic Other endocrine disorders (16 sources) Hypoglycemia; Translations: [Hypoglycemia, unspecified] Onset: 02-11-2024 [...] Episodic/Chronic Conditions associated with dizziness or vertigo (17 sources) Dizziness and giddiness; Translations: [Dizziness and giddiness] Onset: 01-02-2021 Episodic Other circulatory disease (14 sources) Elevated blood pressure; Translations: [Elevated blood-pressure reading, without diagnosis of hypertension] Onset: 11-02-2023 Resolved: 04-11-2024 02-11-2024 Episodic Other hematologic conditions (14 sources) Red blood cell count raised; Translations: [Other abnormality of red blood cells] Onset: 02-11-2024 02-11-2024 Episodic Other lower respiratory disease (3 sources) Shortness of breath; Translations: [Shortness of breath] Onset: 11-02-2023 Episodic Other lower respiratory disease (16 sources) Snoring; Translations: [Snoring] Onset: 11-02-2023 02-11-2024 Episodic Other lower respiratory disease (14 sources) Dyspnea; Translations: [Shortness of breath] Onset: 11-02-2023 02-11-2024 Episodic Other skin disorders (3 sources) Follicular disorder, unspecified; Translations: [Follicular disorder, unspecified] Onset: 03-02-2023 Episodic Other upper respiratory disease (16 sources) Deviated nasal septum; Translations: [Deviated nasal septum] Onset: 11-02-2023 02-11-2024 Episodic Residual codes; unclassified (1 source) Procedure not done; Translations: [Procedure and treatment not carried out due to patient leaving prior to being seen by health care provider] Onset: 01-06-2021 11-02-2023 Episodic Syncope (20 sources) Near syncope; Translations: [Syncope and collapse] Onset: 02-11-2024 12-25-2023 Episodic Unclassified (1 source) Onset: 12-06-2023 12-06-2023 Results Test Name Value Interpretation Reference Range Facility [facility] CMP (CMP) (FOR REMOTE FH C USE)on 12-04-2024 Albumin [Mass/Vol] 4 g/dL 3.4 - 5.0 g/dL [facility] ALBUMIN GLOBULIN RATIO 1.3 NO [facility] ALP [Catalytic activity/Vol] 61 U/L 46 - 116 U/L [facility] ALT [Catalytic activity/Vol] 22 U/L 16 - 63 U/L [facility] Anion gap [Moles/Vol] 14.8 mmol/L NO [facility] AST [Catalytic activity/Vol] 11 U/L Low 15 - 37 U/L [facility] Bilirubin [Mass/Vol] 0.8 mg/dL 0.2 - 1 .0 mg/dL [facility] Calcium [Mass/Vol] 8.9 mg/dL 8.5 - 10. 1 mg/dL [facility] Chloride [Moles/Vol] 105 mmol/L 98 - 10 7 mmol/L [facility] CO2 [Moles/Vol] 26.5 mmol/L 21.0 - 32.0 mmol/L [facility] Creatinine [Mass/Vol] 1.08 mg/dL 0.70 - 1.30 mg/dL [facility] GFR/1.73 sq M.predicted CKD-EPI (S/P/Bld) [Vol rate/Area] >60 >=60 mL/min/1.7 3m 2 [facility] Globulin (S) [Mass/Vol] 3 g/dL [facility] Glucose [Mass/Vol] 77 mg/dL 74 - 106 mg/dL [facility] Interpretation and review of laboratory results Abnormal [facility] Potassium [Moles/Vol] 4.3 mmol/L 3.5 - 5.1 mmol/L [facility] Protein [Mass/Vol] 7 g/dL 6.4 - 8.2 g/dL [facility] Sodium [Moles/Vol] 142 mmol/L 136 - 145 mmol/L [facility] TBH EGFR-NON AF [place] >60 >=60 mL/min/1.7 3m 2 [facility] Urea nitrogen [Mass/Vol] 15 mg/dL 7.0 - 18.0 mg/dL [facility] Urea nitrogen/Creatinine [Mass ratio] 13.9 mg/mg [facility] LIPASEon 12-04-2024 Lipase [Catalytic activity/Vol] 19 U/L 16.0 - 77.0 U/L [facility] No Panel Informationon 12-04 [facility] [place] [address] Ultrasound Report Signed Patient: ELVIN CAMILO MR#: [id number] : 1995 Acct:[id number] Age/Sex: 28 / M ADM Date: 11/22/24 Loc: US Attending Dr: MARY MONET Ordering Physician: MARY MONET Date of Service: 11/22/24 Procedure(s): US right upper quadrant Accession Number(s): [id number] cc: MARY MONET [address] [address] Patient Name: ELVIN CAMILO MRN: [id number] date: 1995 Sex: M Assigned Patient Location: US Current Patient Location: US Accession/Order Number: [id number] Exam Date: 11/22/2024 07:02 Report Date: 11/22/2024 [...] Guidry M.D. 11/22/2024 10:01 AM Dictation Location: [place] [address] Electronically authenticated by: [id number] Y Date: 11/22/2024 10:01 Dictated By: Mary Guidry M.D. Signed By: 11/22/24 1004 DD/ 1001 TD/TT: Press [place] Helper: [facility] Radiology, Radiologi MD rosalva - 11/22/2024 [place] [address] Ultrasound Report Signed Patient: ELVIN CAMILO MR#: [id number] : 1995 Acct:[id number] Age/Sex: 28 / M ADM Date: 11/22/24 Loc: US Attending Dr: MARY MONET Ordering Physician: MARY MONET Date of Service: 11/22/24 Procedure(s): US right upper quadrant Accession Number(s): [id number] cc: MARY MONET [address] [address] Patient Name: ELVIN CAMILO MRN: [facility]:[id number] date: 1995 Sex: M Assigned Patient Location: US Current Patient Location: US Accession/Order Number: [id number] Exam Date: 11/22/2024 07:02 Report Date: 11/22/2024 [...] Guidry M.D. 11/22/2024 10:01 AM Dictation Location: [place] [address] Electronically authenticated by: [id number] Y Date: 11/22/2024 10:01 Dictated By: Mary Guidry M.D. Signed By: 11/22/24 1004 DD/ 1001 TD/TT: Press [place] Helper: [facility] Radiology Study observation (narrative) [facility] US RIGHT UPPER QUADRANTOrder ed By: Radiologist Radiology on 11-22-2024 [facility] Work Phone: XR ABDOMEN 1Von 11-22-2024 [place] [address] XRay Report Signed Patient: ELVIN CAMILO MR#: [id number] : 1995 Acct:[id number] Age/Sex: 28 / M ADM Date: 11/22/24 Loc: US Attending Dr: MARY MONET Ordering Physician: MARY MONET Date of Service: 11/22/24 Procedure(s): XR abdomen 1V Accession Number(s): [id number] cc: MARY MONET [place] [address] Patient Name: ELVIN CAMILO MRN: [id number] date: 1995 Sex: M Assigned Patient Location: US Current Patient Location: US Accession/Order Number: [id number] Exam Date: 11/22/2024 07:15 Report Date: 11/22/2024 [...] Guidry M.D. 11/22/2024 9:59 AM Dictation Location: [place] [address] Electronically authenticated by: [id number] Y Date: 11/22/2024 09:59 Dictated By: Mary Guidry M.D. Signed By: 11/22/24 1001 DD/ 0959 TD/TT: Press [place] Helper: [facility] Radiology, Radiologi MD rosalva - 11/22/[address] [address] XRay Report Signed Patient: ELVIN CAMILO MR#: [id number] : 1995 Acct:[id number] Age/Sex: 28 / M ADM Date: 11/22/24 Loc: US Attending Dr: MARY MONET Ordering Physician: MARY MONET Date of Service: 11/22/24 Procedure(s): XR abdomen 1V Accession Number(s): [id number] cc: MARY MONET [address] [address] Patient Name: ELVIN CAMILO MRN: [facility]:[id number] date: 1995 Sex: M Assigned Patient Location: US Current Patient Location: US Accession/Order Number: [id number] Exam Date: 11/22/2024 07:15 Report Date: 11/22/2024 [...] Guidry M.D. 11/22/2024 9:59 AM Dictation Location: [place] [address] Electronically authenticated by: [id number] Y Date: 11/22/2024 09:59 Dictated By: Mary Guidry M.D. Signed By: 11/22/24 1001 DD/ 0959 TD/TT: Press [place] Helper: [facility] Radiology Study observation (narrative) [facility] XR ABDOMEN 1VOrdered By: Gustabo iologemilee Radiology on 11-22-2024 [facility] Work Phone: BASIC METABOLIC PANELon 11-2 BUN/CREATININE RATIO SEE NOTE: Normal 6-22 Ques t Diagnostics Comment on above: Result Comment: Not Reported: BUN and Creatinine are within reference range. Performed By: #### 1 1281 #### [facility], [address] [place] [phone] Geological [employer] Field Assistant: Herminia Kern MD,PhD,JOVON #### [phone], 3815 #### [facility] [address] [place] [phone] Geological Survey Field Assistant: Cielo Villasenor Calcium [Mass/Vol] 9.4 mg/dL Normal 8.6-10.3 [facility] Comment on above: Performed By: #### 1 6036 #### [facility], [address] [place] [address] Geological Survey Field Assistant: Herminia Kern MD,PhD,JOVON #### 04481, 6399 #### [facility] [address] [place] [address] Geological Survey Field Assistant: Cielo Villasenor Chloride [Moles/Vol] 104 mmol/L Normal 98-110 [facility] t Diagnostics Comment on above: Performed By: #### 1 4757 #### [facility]/[place] [phone] Geological Survey Field Assistant: Herminia Kern MD,PhD,JOVON #### [phone], 9757 #### [facility]-[address] [address] Geological Survey Field Assistant: Cielo Villasenor CO2 [Moles/Vol] 29 mmol/L Normal 20-32 [facility] Comment on above: Performed By: #### 1 5073 #### [facility]/[place] [id number] Geological Survey Field Assistant: Herminia Kern MD,PhD,JOVON #### 49160, 2336 #### [facility]-[address] [address] Geological Survey Field Assistant: Cielo Villasenor Creatinine [Mass/Vol] 1.16 mg/dL Normal 0.60-1.24 [facility] Comment on above: Performed By: #### 1 8565 #### [facility]/[place] [phone] Geological Survey Field Assistant: Herminia Kern MD,PhD,JOVON #### 61823, 3939 #### [facility]-[address] [address] Geological Survey Field Assistant: Cielo Villasenor GFR/1.73 sq M.predicted among non-blacks MDRD (S/P/Bld) [Vol rate/Area] 89 mL/min/{1.73_m2} Normal > OR = 60 [facility] Comment on above: Performed By: #### 1 3285 #### [facility], [address] [place] [address] Geological Survey Field Assistant: Herminia Kern MD,PhD,JOVON #### 99119, 9415 #### [facility] [address] [place] [phone] Geological Survey Field Assistant: Cielo Guillermo Flati Glucose [Mass/Vol] 90 mg/dL Normal 65-99 [facility] Comment on above: Result Comment: Fasting reference interval Performed By: #### 1 0584 #### [facility], [address] [place] [address] Geological Survey Field Assistant: Herminia Kern MD,PhD,JOVON #### 80635, 9443 #### [facility]-[address] [address] Geological Survey Field Assistant: Cielo Guillermo Flati Potassium [Moles/Vol] 3.9 mmol/L Normal 3.5-5.3 [facility] Comment on above: Performed By: #### 1 0533 #### [facility], [address] [place] [phone] Geological Survey Field Assistant: Herminia Kern MD,PhD,JOVON #### 80024, 4631 #### [facility] [address] [place] [address] Geological Survey Field Assistant: Cielo Guillermo Flati Sodium [Moles/Vol] 139 mmol/L Normal 135-146 [facility] Comment on above: Performed By: #### 1 0256 #### [facility], [facility] [place] [address] Geological Survey Field Assistant: Herminia Kern MD,PhD,JOVON #### 55008, 5335 #### [facility] [address] [place] [address] Geological Survey Field Assistant: Cielo Quinteroi Urea nitrogen [Mass/Vol] 17 mg/dL Normal 7-25 [facility] Comment on above: Performed By: #### 1 0584 #### [facility], [address] [place] [address] Geological Survey Field Assistant: Herminia Kern MD,PhD,JOVON #### 30970, 6066 #### [facility]-[address] [address] Geological Survey Field Assistant: Cielo Villasenor CBC (INCLUDES DIFF/PLT)on Basophils (Bld) [#/Vol] 0.05 10*3/uL Normal 0-200 [facility] Comment on above: Performed By: #### 1 0584 #### [facility], [address] [place], [place] [address] Geological Survey Field Assistant: Herminia Kern MD,PhD,JOVON #### 34664, 4212 #### [facility]-[address] [address] Geological Survey Field Assistant: Cielo Villasenor Basophils/100 WBC (Bld) 1.0 % Normal [facility] Comment on above: Performed By: #### 1 0578 #### [facility]/[place] [phone] Geological Survey Field Assistant: Herminia Kern MD,PhD,JOVON #### 87880, 5438 #### [facility]-[address] [address] Geological Survey Field Assistant: Cielo Villasenor COMMENT(S) Normal [facility] Comment on above: Result Comment: Revi ew of peripheral smear confirms automated results. Performed By: #### 1 8628 #### [facility]/[address] [address] Geological Survey Field Assistant: Herminia Kern MD,PhD,JOVON #### 64587, 1484 #### [facility]-[address] [address] Geological Survey Field Assistant: Cielo Villasenor Eosinophils (Bld) [#/Vol] 0.11 10*3/uL Normal 15-500 [facility] Comment on above: Performed By: #### 1 0722 #### [facility]/[address] [address] Geological Survey Field Assistant: Herminai Kern MD,PhD,JOVON #### 10404, 8448 #### [facility]-[address] [address] Geological Survey Field Assistant: Cielo Villasenor Eosinophils/100 WBC (Bld) 2.2 % Normal [facility] Comment on above: Performed By: #### 1 0079 #### [facility]/[place] [phone] Geological Survey Field Assistant: Herminia Kern MD,PhD,JOVON #### 88086, 3311 #### [facility]-[place] [phone] Geological Survey Field Assistant: Cielo Villasenor Erythrocyte distribution width (RBC) [Ratio] 14.1 % Normal 11.0-15.0 [facility] Comment on above: Performed By: #### 1 7527 #### [facility]/[place] [phone] Geological Survey Field Assistant: Herminia Kern MD,PhD,JOVON #### 00901, 0480 #### [facility] [address] [place] [phone] Geological Survey Field Assistant: Cielo Villasenor Hematocrit (Bld) [Volume fraction] 55.4 % High 38.5-50.0 [facility] Comment on above: Performed By: #### 1 2635 #### [facility]/[address] [address] Geological Survey Field Assistant: Herminia Kern MD,PhD,JOVON #### 594[address], 8650 #### [facility]-[address] [address] Geological Survey Field Assistant: Cielo Villasenor Hemoglobin (Bld) [Mass/Vol] 19.0 g/dL High 13.2-17.1 [facility] Comment on above: Result Comment: Veri fied by repeat analysis. Performed By: #### 1 0584 #### [facility], [address] [place] [address] Geological Survey Field Assistant: Herminia Kern MD,PhD,JOVON #### 70429, 3103 #### [facility]-[address] [address] Geological Survey Field Assistant: Cielo Villasenor Lymphocytes (Bld) [#/Vol] 1.525 10*3/uL Normal 850-3900 [facility] Comment on above: Performed By: #### 1 0540 #### [facility], [address] [place] [address] Geological Survey Field Assistant: Herminia Kern MD,PhD,JOVON #### 04701, 1015 #### [facility]-[address] [address] Geological Survey Field Assistant: Cielo Villasenor Lymphocytes/100 WBC (Bld) 30.5 % Normal [facility] Comment on above: Performed By: #### 1 0563 #### [facility], [address] [place] [phone] Geological Survey Field Assistant: Herminia Kern MD,PhD,JOVON #### 13472, 2476 #### [facility]-[address] [address] Geological Survey Field Assistant: Cielo Villasenor MCH (RBC) [Entitic mass] 31.8 pg Normal 27.0-33.0 [facility] Comment on above: Performed By: #### 1 0555 #### [facility], [address] [place] [phone] Geological Survey Field Assistant: Herminia Kern MD,PhD,JOVON #### 25979, 1655 #### [facility] [address] [place] [phone] Geological Survey Field Assistant: Cielo Villasenor MCHC (RBC) [Mass/Vol] 34.3 g/dL Normal 32.0-36.0 [facility] st Diagnostics Comment on above: Result Comment: For adults, a slight decrease in the calculated MCHC value (in the range of 30 to 32 g/dL) is most likely not clinically significant; however, it should be interpreted with caution in correlation with other red cell parameters and the patient's clinical condition. Performed By: #### 1 9709 #### [facility], [address] [place], [place] [address] Geological Survey Field Assistant: Herminia Kern MD,PhD,JOVON #### 48592, 6962 #### [facility] [address] [place] [phone] Geological Survey Field Assistant: Cielo Villasenor MCV (RBC) [Entitic vol] 92.8 fL Normal 80.0-100.0 [facility] Comment on above: Performed By: #### 1 5693 #### [facility]/[place] [phone] Geological Survey Field Assistant: Herminia Kern MD,PhD,JOVON #### 60[address], 9060 #### [facility] [address] Geological Survey Field Assistant: Cielo Villasenor Monocytes (Bld) [#/Vol] 0.665 10*3/uL Normal 200-950 [facility] Comment on above: Performed By: #### 1 3176 #### [facility], [address] [place] [address] Geological Survey Field Assistant: Herminia Kern MD,PhD,JOVON #### 46853, 8062 #### [facility]-[address] [address] Geological Survey Field Assistant: Cielo Villasenor Monocytes/100 WBC (Bld) 13.3 % Normal [facility] Comment on above: Performed By: #### 1 0584 #### [facility]/[place] [phone] Geological Survey Field Assistant: Herminia Kern MD,PhD,JOVON #### 16289, 9970 #### [facility]-[address] Geological Survey Field Assistant: Cielo Villasenor Neutrophils (Bld) [#/Vol] 2.65 10*3/uL Normal 1983-5112 [facility] Comment on above: Performed By: #### 1 0584 #### [facility]/[place] [phone] Geological Survey Field Assistant: Herminia Kern MD,PhD,JOVON #### 26303, 0069 #### [facility]-[address] [address] Geological Survey Field Assistant: Cielo Villasenor Neutrophils/100 WBC (Bld) 53.0 % Normal [facility] Comment on above: Performed By: #### 1 0584 #### [facility]/[place] [phone] Geological Survey Field Assistant: Herminia Kern MD,PhD,JOVON #### 51181, 4592 #### [facility]-[address] [address] Geological Survey Field Assistant: Cielo Villasenor Platelet mean volume (Bld) [Entitic vol] 10.2 fL Normal 7.5-12.5 [facility] Comment on above: Performed By: #### 1 0584 #### [facility] [address] Geological Survey Field Assistant: Herminia Kern MD,PhD,JOVON #### 49545, 6451 #### [place] [address] Geological Survey Field Assistant: Cielo Villasenor Platelets (Bld) [#/Vol] 186 10*3/uL Normal 140-400 [facility] Comment on above: Performed By: #### 1 0584 #### [facility], [address] [place], [place] [address] Geological Survey Field Assistant: Herminia Kern MD,PhD,JOVON #### 75623, 3799 #### [facility] [place] [address] Geological Survey Field Assistant: Cielo Villasenor RBC (Bld) [#/Vol] 5.97 10*6/uL High 4.20-5.80 [facility] Comment on above: Performed By: #### 1 0584 #### [facility] [address] Geological Survey Field Assistant: Herminia Kern MD,PhD,JOVON #### 80189, 5088 #### [facility] [place] [address] Geological Survey Field Assistant: Cielo Villasenor WBC (Bld) [#/Vol] 5.0 10*3/uL Normal 3.8-10.8 [facility] Comment on above: Performed By: #### 1 8420 #### [facility] [address] Geological Survey Field Assistant: Herminia Kern MD,PhD,JOVON #### 02811, 0667 #### [facility]-[address] [address] Geological Survey Field Assistant: Cielo Villasenor GAD65, IA-2, AND INSULIN AUT OANTIBODYon 02-24-2024 GLUTAMIC ACID DECARBOXYLASE 65 AB <5 Normal <5 [facility] Comment on above: Order Comment: FASTI NG:YES FASTING: YES Result Comment: This test was performed using the GAD65 KEAGAN method which is standardized against the International reference preparation 97/550. Performed By: #### 1 0584 #### [facility], [address] [place] [address] Geological Survey Field Assistant: Herminia Kern MD,PhD,JOVON #### 77428, 9299 #### [facility] [address] [place] [address] Geological Survey Field Assistant: Cielo Villasenor IA-2 ANTIBODY <5.4 Normal <5.4 [facility] Comment on above: Order Comment: FASTI NG:YES FASTING: YES Result Comment: This test was performed using the IA-2 Antibody KEAGAN method which is standardized against the WHO Reference Reagent 97/550. The reference range reported was established specifically for this test method. Performed By: #### 1 0584 #### [facility], [address] [place] [address] Geological Survey Field Assistant: Herminia Kern MD,PhD,JOVON #### 04596, 7299 #### [facility] [address] [place] [address] Geological Survey Field Assistant: Cielo Villasenor INSULIN AUTOANTIBODY <0.4 Normal <0.4 Ques t [facility] Comment on above: Order Comment: FASTI NG:YES FASTING: YES Performed By: #### 1 0589 #### [facility], [address] [place] [address] Geological Survey Field Assistant: Herminia Kern MD,PhD,JOVON #### 11348, 7099 #### [facility] [address] [place] [id number] [employer] Field Assistant: Cielo Villasenor Activated partial thrombopla stin time (aPTT) in platelet poor plasma by coagulation aOrdered By: Feli Irizarry on 12-25-2023 aPTT Coag (PPP) [Time] 28.5 s 25.1-36.5 [facility] Comment on above: A hematocrit value g reater than 55% may lead to inaccurate results in coagulation testing. Patients having hematocrit values >55% require a special collection tube for coagulation studies. Please contact the laboratory at [phone] for redraw instructions. Automated basophil %Ordered By: Feli Irizarry on 12-25-2023 Basophils/100 WBC (Bld) 0.6 % Normal . [facility] Comment on above: Performed By: #### P T, HS TROP, TSH3, CK, PTT, BNP, SCAN CBC, CBC, BMP #### [facility] [address] [place] [address] Automated basophil countOrde red By: Feli Irizarry on 12-25-2023 Basophils (Bld) [#/Vol] 0.0 10*3/uL Normal 0.0-0.2 [facility] Comment on above: Result Comment: PERF ORMED BY: [place] [address] PATHOLOGIST SALES COACH RICO YANG M.D. Performed By: #### P T, HS TROP, TSH3, CK, PTT, BNP, SCAN CBC, CBC, BMP #### [facility] [address] [place] [address] Automated blood monocyte cou ntOrdered By: Feli Irizarry on 12-25-2023 Monocytes (Bld) [#/Vol] 0.6 10*3/uL Normal 0.0-0.8 [facility] Comment on above: Performed By: #### P T, HS TROP, TSH3, CK, PTT, BNP, SCAN CBC, CBC, BMP #### [facility] [address] [place] [address] Automated eosinophil %Ordere d By: Feli Irizarry on 12-25-2023 Eosinophils/100 WBC (Bld) 1.1 % Normal . [facility] Comment on above: Performed By: #### P T, HS TROP, TSH3, CK, PTT, BNP, SCAN CBC, CBC, BMP #### [address] Automated eosinophil countOr dered By: Feli Irizarry on 12-25-2023 Eosinophils (Bld) [#/Vol] 0.1 10*3/uL Normal 0.0-0.45 [facility] Comment on above: Performed By: #### P T, HS TROP, TSH3, CK, PTT, BNP, SCAN CBC, CBC, BMP #### [address] Automated monocyte %Ordered By: Feli Irizarry on 12-25-2023 Monocytes/100 WBC (Bld) 8.9 % Normal . [facility] Comment on above: Performed By: #### P T, HS TROP, TSH3, CK, PTT, BNP, SCAN CBC, CBC, BMP #### [address] Automated neutrophil %Ordere d By: Feli Irizarry on 12-25-2023 Neutrophils/100 WBC (Bld) 67.9 % Normal . [facility] Comment on above: Performed By: #### P T, HS TROP, TSH3, CK, PTT, BNP, SCAN CBC, CBC, BMP #### [address] BNP ser/plasOrdered By: Feli Irizarry on 12-25-2023 Natriuretic peptide B (Bld) [Mass/Vol] 8.0 pg/mL Normal 5-100 [facility] Comment on above: Result Comment: PERF ORMED BY: [place] [address] PATHOLOGIST SALES COACH RICO YANG M.D. Performed By: #### P T, HS TROP, TSH3, CK, PTT, BNP, SCAN CBC, CBC, BMP #### [address] Basic Metabolic Panelon 11-28 Creatinine Clr Calc Pharmacy 111.21 Normal [facility] Comment on above: Performed By: #### P T, HS TROP, TSH3, CK, PTT, BNP, SCAN CBC, CBC, BMP #### [facility] [address] [id number] [facility] GFR/1.73 sq M.predicted MDRD (S/P/Bld) [Vol rate/Area] mL/min/{1.73_m2} Normal [facility] Comment on above: Performed By: #### P T, HS TROP, TSH3, CK, PTT, BNP, SCAN CBC, CBC, BMP #### [facility] [address] [id number] [facility] CT angio headon 12-25-2023 CT angio head [facility] [place] [address] [place] [address] CT Scan Report Signed Patient: Elvin Camilo MR#: [id number] : 1995 Acct:[id number] Age/Sex: 28 / M ADM Date: 12/25/23 Loc: ER Room: Type: [facility] Attending Dr: Copies to: Feli Irizarry DO Ordering Provider: Feli Irizarry DO Date of Service: 12/25/23 CT/CT angio head: f ([id number]) CT/CT angio chest: f ([id number]) CT/CT angio neck: f ([id number]) CT/CT head/brain wo con: f Unenhanced head [...] Leeroy Orantes M.D.12/25/2023 6:29 PM Dictation Location: [place] [address] Transcribed By: [facility] 12/25/231828 Dictated By: Leeroy Orantes DO 12/25/231821 Signed By: 12/25/231828 Normal [facility] Calcium [Mass/volume] in Ser um or PlasmaOrdered By: Feli Irizarry on 12-25-2023 Calcium [Mass/Vol] 9.5 mg/dL Normal 8.6-10.3 [facility] Comment on above: Performed By: #### P T, HS TROP, TSH3, CK, PTT, BNP, SCAN CBC, CBC, BMP #### [facility] [address] Carbon dioxide, total [Moles /volume] in Serum or PlasmaOrdered By: Feli Irizarry on 12-25-2023 CO2 [Moles/Vol] 24.6 mmol/L Normal 21.0-31.0 [facility] Comment on above: Performed By: #### P T, HS TROP, TSH3, CK, PTT, BNP, SCAN CBC, CBC, BMP #### [facility] [address] Chloride [Moles/volume] in S maximo or PlasmaOrdered By: Feli Irizarry on 12-25-2023 Chloride [Moles/Vol] 105 mmol/L Normal 98-107 [facility] Comment on above: Performed By: #### P T, HS TROP, TSH3, CK, PTT, BNP, SCAN CBC, CBC, BMP #### [address] Complete Blood Count Auto Di ffon 12-25-2023 Mean Corpuscular HGB Conc 35.1 g/dL Normal 32.5-35.6 [facility] Comment on above: Performed By: #### P T, HS TROP, TSH3, CK, PTT, BNP, SCAN CBC, CBC, BMP #### [address] NRBC% 0.4 /100{WBC} Normal 0-0.5 [facility] Comment on above: Performed By: #### P T, HS TROP, TSH3, CK, PTT, BNP, SCAN CBC, CBC, BMP #### [facility] [address] [place] [address] [place] Creatine kinase [Enzymatic a ctivity/volume] in Serum or PlasmaOrdered By: Feli Irizarry on 12-25-2023 CK [Catalytic activity/Vol] 356 U/L High 30-223 [facility] Comment on above: Performed By: #### P T, HS TROP, TSH3, CK, PTT, BNP, SCAN CBC, CBC, BMP #### [place] [address] [place] Creatinine [Mass/volume] in Serum or PlasmaOrdered By: Feli Irizarry on 12-25-2023 Creatinine [Mass/Vol] 1.16 mg/dL Normal 0.70-1.30 [facility] Comment on above: Performed By: #### P T, HS TROP, TSH3, CK, PTT, BNP, SCAN CBC, CBC, BMP #### [facility] [address] ECG 12 lead ECGon 12-25-2023 ECG 12 lead ECG [facility] [place] [address] [place] [address] Electrocardiograph Report Signed Patient: Elvin Camilo MR#: [id number] : 1995 Acct:[id number] Age/Sex: 28 / M ADM Date: 12/25/23 Loc: ER Room: Type: [facility] ER Attending Dr: Ordering Provider: Feli Irizarry [...] ECGs available Confirmed by FELI IRIZARRY DO ([id number]) on 12/26/2023 2:02:12 AM Referred By: Electronically Signed By: FELI IRIZARRY DO Transcribed By: MUS Signed By Feli Irizarry DO 12/25 0202 Normal [facility] Erythrocyte distribution wid th [Ratio] by Automated countOrdered By: Feli Irizarry on 12-25-2023 Erythrocyte distribution width (RBC) [Ratio] 13.0 % Normal 12.0-14.8 [facility] Comment on above: Performed By: #### P T, HS TROP, TSH3, CK, PTT, BNP, SCAN CBC, CBC, BMP #### [facility] [address] [place] [address] [place] Erythrocytes [#/volume] in B lood by Automated countOrdered By: Feli Irizarry on 12-25-2023 RBC (Bld) [#/Vol] 5.89 10*6/uL High 3.90-5.60 [facility] Comment on above: Performed By: #### P T, HS TROP, TSH3, CK, PTT, BNP, SCAN CBC, CBC, BMP #### [facility] [address] [id number] [place] Glucose [Mass/volume] in Ser um or PlasmaOrdered By: Feli Irizarry on 12-25-2023 Glucose [Mass/Vol] 64 mg/dL Low 70-100 [facility] Comment on above: ADA recommended refe rence rangeRandom Glucose Reference Range is dependent on time and content of last meal. Glucose of more than 200 mg/dL in a nonstressed, ambulatory subject supports the diagnosis of Diabetes Mellitus. Result Comment: [place] om Glucose Reference Range is dependent on time and content of last meal. Glucose of more than 200 mg/dL in a nonstressed, ambulatory subject supports the diagnosis of Diabetes Mellitus. ADA recommended reference range Performed By: #### P T, HS TROP, TSH3, CK, PTT, BNP, SCAN CBC, CBC, BMP #### [facility] [address] [place] [address] [place] Hematocrit [Volume Fraction] of Blood by Automated countOrdered By: Feli Irizarry on 12-25-2023 Hematocrit (Bld) [Volume fraction] 53.4 % High 38.8-50.0 [facility] Comment on above: Performed By: #### P T, HS TROP, TSH3, CK, PTT, BNP, SCAN CBC, CBC, BMP #### [facility] [address] [id number] [place] Hemoglobin [Mass/volume] in BloodOrdered By: Feli Irizarry on 12-25-2023 Hemoglobin (Bld) [Mass/Vol] 18.8 g/dL High 13.0-17.0 [facility] Comment on above: Performed By: #### P T, HS TROP, TSH3, CK, PTT, BNP, SCAN CBC, CBC, BMP #### [facility] [address] [id number] [place] INR in Platelet poor plasma by Coagulation assayOrdered By: Feli Irizarry on 12-25-2023 INR Coag (PPP) [Relative time] 1.2 {INR} Normal [facility] Comment on above: INR Therapeutic Rang [...] PTT, BNP, SCAN CBC, CBC, BMP #### [facility] [address] [place] [address] [place] Leukocytes [#/volume] correc justin for nucleated erythrocytes in Blood by Automated counOrdered By: Feli Irizarry on 12-25-2023 WBC corrected for nucl RBC Auto (Bld) [#/Vol] 6.8 10*3/uL 4.1-10.5 [facility] Leukocytes [#/volume] in Blo od by Automated countOrdered By: Feli Irizarry on 12-25-2023 WBC (Bld) [#/Vol] 6.8 10*3/uL Normal 4.1-10.5 [facility] Comment on above: Performed By: #### P T, HS TROP, TSH3, CK, PTT, BNP, SCAN CBC, CBC, BMP #### [facility] [address] [place] [address] [place] Lymphocytes [#/volume] in Bl ood by Automated countOrdered By: Feli Irizarry on 12-25-2023 Lymphocytes (Bld) [#/Vol] 1.5 10*3/uL Normal 1.00-4.8 [facility] Comment on above: Performed By: #### P T, HS TROP, TSH3, CK, PTT, BNP, SCAN CBC, CBC, BMP #### [address] Lymphocytes/100 leukocytes i n Blood by Automated countOrdered By: Feli Irizarry on 12-25-2023 Lymphocytes/100 WBC (Bld) 21.5 % Normal . [facility] Comment on above: Performed By: #### P T, HS TROP, TSH3, CK, PTT, BNP, SCAN CBC, CBC, BMP #### [address] MCH [Entitic mass] by Automa justin countOrdered By: Feli Irizarry on 12-25-2023 MCH (RBC) [Entitic mass] 31.8 pg Normal 27.5-35.2 [facility] Comment on above: Performed By: #### P T, HS TROP, TSH3, CK, PTT, BNP, SCAN CBC, CBC, BMP #### [address] MCHC Auto (RBC) [Mass/Vol]Or dered By: Feli Irizarry on 12-25-2023 MCHC (RBC) [Mass/Vol] 35.1 g/dL 32.5-35.6 [facility] MCV [Entitic volume] by Auto mated countOrdered By: Feli Irizarry on 12-25-2023 MCV (RBC) [Entitic vol] 90.7 fL Normal 83.5-101 [facility] Comment on above: Performed By: #### P T, HS TROP, TSH3, CK, PTT, BNP, SCAN CBC, CBC, BMP #### [facility] [address] [place] [address] Monocyte distribution width [Entitic volume] in Blood by AutomatedOrdered By: Feli Irizarry on 12-25-2023 Monocyte distribution width Auto (Bld) [Entitic vol] 16.46 % 0.00-20.00 [facility] Neutrophils [#/volume] in Bl ood by Automated countOrdered By: Feli Irizarry on 12-25-2023 Neutrophils (Bld) [#/Vol] 4.6 10*3/uL Normal 1.8-7.7 [facility] Comment on above: Performed By: #### P T, HS TROP, TSH3, CK, PTT, BNP, SCAN CBC, CBC, BMP #### [facility] [address] No Panel InformationOrdered By: Feli Irizarry on 12-25-2023 Estimated GFR (CKD-EPI) > 60.0 mL/Min [facility] Creatinine Clearance (Chem 111.21 [facility] Nucleated erythrocytes [Pres ence] in Blood by Automated countOrdered By: Feli Irizarry on 12-25-2023 Nucleated RBC Auto Ql (Bld) 0.4 /100{WBC} 0-0.5 [facility] Partial Thromboplastin Timeo n 12-25-2023 aPTT Coag (Bld) [Time] 28.5 s Normal 25.1-36.5 [facility] Comment on above: Result Comment: A he matocrit value greater than 55% may lead to inaccurate results in coagulation testing. Patients having hematocrit values >55% require a special collection tube for coagulation studies. Please contact the laboratory at [phone] for redraw instructions. PERFORMED BY: [place] [address] PATHOLOGIST SALES COACH RICO YANG M.D. Performed By: #### P T, HS TROP, TSH3, CK, PTT, BNP, SCAN CBC, CBC, BMP #### [facility] [address] [place] [address] Platelet adequacy [Presence] in Blood by Light microscopyOrdered By: Feli Irizarry on 12-25-2023 Platelets LM Ql (Bld) Normal Normal [facility] Platelet mean volume [Entiti c volume] in Blood by Automated countOrdered By: Feli Irizarry on 12-25-2023 Platelet mean volume (Bld) [Entitic vol] 8.2 fL Normal 6.6-10.1 [facility] Comment on above: Performed By: #### P T, HS TROP, TSH3, CK, PTT, BNP, SCAN CBC, CBC, BMP #### [address] [address] [facility] Platelet morphology finding [Identifier] in BloodOrdered By: Feli Irizarry on 12-25-2023 Platelet morphology finding Nom (Bld) Normal Normal [facility] Platelets [#/volume] in Bloo d by Automated countOrdered By: Feli Irizarry on 12-25-2023 Platelets (Bld) [#/Vol] 225 10*3/uL Normal 150-450 [facility] Comment on above: Performed By: #### P T, HS TROP, TSH3, CK, PTT, BNP, SCAN CBC, CBC, BMP #### [facility] [address] [place], [place] [id number] [facility] Potassium [Moles/volume] in Serum or PlasmaOrdered By: Feli Irizarry on 12-25-2023 Potassium [Moles/Vol] 3.8 mmol/L Normal 3.5-5.1 [facility] Comment on above: Hemolysis is present at a level that could interfere with the result.Contact lab if redraw is required Result Comment: Hemo lysis is present at a level that could interfere with the result. Contact lab if redraw is required Performed By: #### P T, HS TROP, TSH3, CK, PTT, BNP, SCAN CBC, CBC, BMP #### [facility] [address] [place], [place] [id number] [facility] Prothrombin time (PT)Ordered By: Feli Irizarry on 12-25-2023 PT Coag (PPP) [Time] 14.1 s High 9.0-12.9 [facility] Comment on above: A hematocrit value g reater than 55% may lead to inaccurate results in coagulation testing. Patients having hematocrit values >55% require a special collection tube for coagulation studies. Please contact the laboratory at [phone] for redraw instructions. Result Comment: A he matocrit value greater than 55% may lead to inaccurate results in coagulation testing. Patients having hematocrit values >55% require a special collection tube for coagulation studies. Please contact the laboratory at [phone] for redraw instructions. Performed By: #### P T, HS TROP, TSH3, CK, PTT, BNP, SCAN CBC, CBC, BMP #### [facility] [address] RBC morphologyOrdered By: Devendra Irizarry on 12-25-2023 RBC morphology finding Nom (Bld) Normal Normal Normal [facility] Comment on above: Performed By: #### P T, HS TROP, TSH3, CK, PTT, BNP, SCAN CBC, CBC, BMP #### [facility] [address] Scan and CBCon 12-25-2023 Monocytes/100 WBC (Bld) 16.46 % Normal 0.00-20.00 [facility] Comment on above: Performed By: #### P T, HS TROP, TSH3, CK, PTT, BNP, SCAN CBC, CBC, BMP #### [facility] [address] Platelet Estimate Normal Normal Normal [facility] Comment on above: Performed By: #### P T, HS TROP, TSH3, CK, PTT, BNP, SCAN CBC, CBC, BMP #### [facility] [address] Platelet Morphology Normal Normal Normal [facility] Comment on above: Result Comment: PERF ORMED BY: [place] [address] PATHOLOGIST SALES COACH RICO YANG M.D. Performed By: #### P T, HS TROP, TSH3, CK, PTT, BNP, SCAN CBC, CBC, BMP #### [address] Serum or plasma anion gap de terminationOrdered By: Feli Irizarry on 12-25-2023 Anion gap [Moles/Vol] 13.2 mmol/L Normal 6.0-15.0 [facility] Comment on above: Performed By: #### P T, HS TROP, TSH3, CK, PTT, BNP, SCAN CBC, CBC, BMP #### [facility] [address] Sodium [Moles/volume] in Ser um or PlasmaOrdered By: Feli Irizarry on 12-25-2023 Sodium [Moles/Vol] 139 mmol/L Normal 136-145 [facility] Comment on above: Performed By: #### P T, HS TROP, TSH3, CK, PTT, BNP, SCAN CBC, CBC, BMP #### [facility] [address] [place] [address] Thyrotropin [Units/volume] i n Serum or PlasmaOrdered By: Feli Irizarry on 12-25-2023 TSH Qn 3.55 m[IU]/L Normal 0.45-5.33 [facility] Comment on above: Result Comment: PERF ORMED BY: [place] [address] PATHOLOGIST SALES COACH RICO YANG M.D. Performed By: #### P T, HS TROP, TSH3, CK, PTT, BNP, SCAN CBC, CBC, BMP #### [address] Troponin I High Sensitivityo n 12-25-2023 Troponin I High Sensitivity 7.2 pg/mL Normal 0.0-20.0 [facility] Comment on above: Order Comment: Comme nt repeat Result Comment: PERF ORMED BY: [place] [address] PATHOLOGIST SALES COACH RICO YANG M.D. Performed By: #### H S TROP #### [address] Troponin I High Sensitivity 6.1 pg/mL Normal 0.0-20.0 [facility] Comment on above: Result Comment: PERF ORMED BY: [place] [address] PATHOLOGIST SALES COACH RICO YANG M.D. Performed By: #### P T, HS TROP, TSH3, CK, PTT, BNP, SCAN CBC, CBC, BMP #### [facility] [address] [place] [address] Troponin I.cardiac [Mass/vol ume] in Serum or Plasma by Detection limit <= 0.01 ng/Ordered By: Feli Irizarry on 12-25-2023 Troponin I.cardiac DL <= 0.01 ng/mL [Mass/Vol] 7.2 pg/mL 0.0-20.0 [facility] Urea nitrogen [Mass/volume] in Serum or PlasmaOrdered By: Feli Irizarry on 12-25-2023 Urea nitrogen [Mass/Vol] 26 mg/dL High 10-20 [facility] Comment on above: Performed By: #### P T, HS TROP, TSH3, CK, PTT, BNP, SCAN CBC, CBC, BMP #### [facility] [address] XR CHEST 2 VIEWSon XR CHEST 2 VIEWS Interpreted By: Vivek [place], STUDY: XR CHEST 2 VIEWS; 11/01/2023 12:08 pm INDICATION: Signs/Symptoms:Shortness of breath. COMPARISON: None. ACCESSION NUMBER(S): [id number] ORDERING CLINICIAN: BRITTANY CLAYTON FINDINGS: CARDIOMEDIASTINAL SILHOUETTE: Cardiomediastinal silhouette is normal in size and configuration. LUNGS: Lungs are clear. ABDOMEN: No remarkable upper abdominal findings. BONES: No acute osseous changes. IMPRESSION: 1. No evidence of acute cardiopulmonary process. Signed by: Vivek An 11/02/2023 6:57 AM Dictation workstation: [id number] Normal [facility] CBC W Auto Differential pane l (Bld)on 10-21-2023 Basophils (Bld) [#/Vol] 0.05 x10*3/uL Normal 0.00-0.10 [facility] Comment on above: Performed By: #### 5 7021-8 #### EMERITA Farmer ([id number]) [facility] ([facility]) [id number] [place] [address] Basophils/100 WBC (Bld) 0.7 % Normal 0.0-2.0 [facility] Comment on above: Performed By: #### 5 7021-8 #### EMERITA Farmer ([id number]) [facility] ([facility]) [id number] [place] [address] Eosinophils (Bld) [#/Vol] 0.07 x10*3/uL Normal 0.00-0.70 [facility] Comment on above: Performed By: #### 5 7021-8 #### EMERITA Farmer ([id number]) [facility] ([facility]) [address] [place] [address] Eosinophils/100 WBC (Bld) 1.0 % Normal 0.0-6.0 [facility] Comment on above: Performed By: #### 5 7021-8 #### EMERITA Farmer ([id number]) [facility] ([facility]) [address] [place] [address] Erythrocyte distribution width (RBC) [Ratio] 13.0 % Normal 11.5-14.5 [facility] Comment on above: Performed By: #### 5 7021-8 #### EMERITA Farmer ([id number]) [facility] ([facility]) [address] [place] [address] Hematocrit (Bld) [Volume fraction] 52.0 % Normal 41.0-52.0 [facility] Comment on above: Performed By: #### 5 7021-8 #### EMERITA Farmer ([id number]) [facility] ([facility]) [address] [place] [address] Hemoglobin (Bld) [Mass/Vol] 18.1 g/dL High 13.5-17.5 [facility] Comment on above: Performed By: #### 5 7021-8 #### EMERITA Farmer ([id number]) [facility] ([facility]) [address] [place] [address] Immature granulocytes (Bld) [#/Vol] 0.08 x10*3/uL Normal 0.00-0.70 [facility] Comment on above: Performed By: #### 5 7021-8 #### EMERITA Farmer ([id number]) [facility] ([facility]) [address] [place] [address] Immature granulocytes/100 WBC (Bld) 1.2 % High 0.0-0.9 [facility] Comment on above: Result Comment: Ellie ture Granulocyte Count (IG) includes promyelocytes, myelocytes and metamyelocytes but does not include bands. Percent differential counts (%) should be interpreted in the context of the absolute cell counts (cells/UL). Performed By: #### 5 7021-8 #### EMERITA Farmer ([id number]) [facility] ([facility]) [address] [place] [address] Lymphocytes (Bld) [#/Vol] 1.52 x10*3/uL Normal 1.20-4.80 [facility] Comment on above: Performed By: #### 5 7021-8 #### EMERITA Farmer ([id number]) [facility] ([facility]) [address] [place] [address] Lymphocytes/100 WBC (Bld) 22.3 % Normal 13.0-44.0 [facility] Comment on above: Performed By: #### 5 7021-8 #### EMERITA Farmer ([id number]) [facility] ([facility]) [address] [place] [address] MCH (RBC) [Entitic mass] 31.3 pg Normal 26.0-34.0 [facility] Comment on above: Performed By: #### 5 7021-8 #### EMERITA Farmer ([id number]) [facility] ([facility]) [id number] [place] [address] MCHC (RBC) [Mass/Vol] 34.8 g/dL Normal 32.0-36.0 [facility] Comment on above: Performed By: #### 5 7021-8 #### EMERITA Farmer ([id number]) [facility] ([facility]) [id number] [place] [address] MCV (RBC) [Entitic vol] 90 fL Normal 80-100 [facility] Comment on above: Performed By: #### 5 7021-8 #### EMERITA Farmer ([id number]) [facility] ([facility]) [id number] [place] [address] Monocytes (Bld) [#/Vol] 0.64 x10*3/uL Normal 0.10-1.00 [facility] Comment on above: Performed By: #### 5 7021-8 #### EMERITA Farmer ([id number]) [facility] ([facility]) [address] [place] [address]70 Monocytes/100 WBC (Bld) 9.4 % Normal 2.0-10.0 [facility] Comment on above: Performed By: #### 5 7021-8 #### EMERITA Farmer ([id number]) [facility] ([facility]) [address] [place] [address] 18224 Neutrophils (Bld) [#/Vol] 4.46 x10*3/uL Normal 1.20-7.70 [facility] Comment on above: Result Comment: Perc ent differential counts (%) should be interpreted in the context of the absolute cell counts (cells/uL). Performed By: #### 5 7021-8 #### EMERITA Farmer ([id number]) [facility] ([facility]) [address] [place] [address] [id number] Neutrophils/100 WBC (Bld) 65.4 % Normal 40.0-80.0 [facility] Comment on above: Performed By: #### 5 7021-8 #### EMERITA Farmer ([id number]) [facility] ([facility]) [address] [place] [id number] Nucleated RBC/100 WBC (Bld) [Ratio] 0.0 /100 WBCs Normal 0.0-0.0 [facility] Comment on above: Performed By: #### 5 7021-8 #### EMERITA Farmer ([id number]) [facility] ([facility]) [address] [place] [address] 75094 Platelets (Bld) [#/Vol] 215 x10*3/uL Normal 150-450 [facility] Comment on above: Performed By: #### 5 7021-8 #### EMERITA Farmer ([id number]) [facility] ([facility]) [address] [place] [address] 85366 RBC (Bld) [#/Vol] 5.79 x10*6/uL Normal 4.50-5.90 [facility] Comment on above: Performed By: #### 5 7021-8 #### EMERITA Farmer ([id number]) [facility] ([facility]) [address] [place] [address] 08445 WBC (Bld) [#/Vol] 6.8 x10*3/uL Normal 4.4-11.3 [facility] Comment on above: Performed By: #### 5 7021-8 #### EMERITA Farmer ([id number]) [facility] ([facility]) [address] [place] [address] 12719 Comprehensive metabolic 2000 panelon 10-21-2023 Albumin BCP dye [Mass/Vol] 4.5 g/dL Normal 3.4-5.0 [facility] Comment on above: Performed By: #### 2 4323-8 #### EMERITA Farmer ([id number]) [facility] ([facility]) [address] [place] [address] 07901 ALP [Catalytic activity/Vol] 58 U/L Normal 33-120 [facility] Comment on above: Performed By: #### 2 4323-8 #### EMERITA Farmer ([id number]) [facility] ([facility]) [address] [place] [address] 98024 ALT With P-5'-P [Catalytic activity/Vol] 26 U/L Normal 10-52 [facility] Comment on above: Result Comment: Denisse ents treated with Sulfasalazine may generate falsely decreased results for ALT. Performed By: #### 2 4323-8 #### EMERITA Farmer ([id number]) [facility] ([facility]) [address] [place] [address] Anion gap [Moles/Vol] 12 mmol/L Normal 10-20 [facility] Comment on above: Performed By: #### 2 4323-8 #### EMERITA Farmer ([id number]) [facility] ([facility]) [address] [place] [address] AST With P-5'-P [Catalytic activity/Vol] 15 U/L Normal 9-39 [facility] Comment on above: Performed By: #### 2 4323-8 #### EMERITA Farmer ([id number]) [facility] ([facility]) [address] [place] [address] 02178 Bilirubin [Mass/Vol] 0.9 mg/dL Normal 0.0-1.2 [facility] Comment on above: Performed By: #### 2 4323-8 #### EMERITA Farmer ([id number]) [facility] ([facility]) [address] [place] [address] 03118 Calcium [Mass/Vol] 9.3 mg/dL Normal 8.6-10.6 [facility] Comment on above: Performed By: #### 2 4323-8 #### EMERITA Farmer ([id number]) [facility] ([facility]) [id number] [place] [address] 67719 Chloride [Moles/Vol] 102 mmol/L Normal 98-107 [facility] Comment on above: Performed By: #### 2 4323-8 #### EMERITA Farmer ([id number]) [facility] ([facility]) [address] [place] [address] 56470 CO2 [Moles/Vol] 30 mmol/L Normal 21-[address] [facility] Comment on above: Performed By: #### 2 4323-8 #### EMERITA Farmer ([id number]) [facility] ([facility]) [address] [place] [address] 66557 Creatinine [Mass/Vol] 1.18 mg/dL Normal 0.50-1.30 [facility] Comment on above: Performed By: #### 2 4323-8 #### EMERITA CABALLERO L ([id number]) [facility] ([facility]) [id number] [place] [address] 11826 Glomerular filtration rate/1.73 sq M.predicted 87 mL/min/1.73m*2 Normal >60 [facility] Comment on above: Result Comment: Calc ulations of estimated GFR are performed using the 2020 CKD-EPI Study Refit equation without the race variable for the IDMS-Traceable creatinine methods. https://jasn.asnjournals.org/content//ASN.36293 19544 Performed By: #### 2 4323-8 #### EMERITA Farmer ([id number]) [facility] ([facility]) [address] [place] [address] 93512 Glucose [Mass/Vol] 55 mg/dL Low 74-99 [facility] Comment on above: Performed By: #### 2 4323-8 #### EMERITA Farmer ([id number]) [facility] ([facility]) [address] [place] [address] 16377 Potassium [Moles/Vol] 4.1 mmol/L Normal 3.5-5.3 [facility] Comment on above: Performed By: #### 2 4323-8 #### EMERITA CABALLERO L ([id number]) [facility] ([facility]) [address] [place] [address] 59058 Protein [Mass/Vol] 6.8 g/dL Normal 6.4-8.2 [facility] Comment on above: Performed By: #### 2 4323-8 #### EMERITA CABALLERO L ([id number]) [facility] ([facility]) [address] [place] [address] 21566 Sodium [Moles/Vol] 140 mmol/L Normal 136-145 [facility] Comment on above: Performed By: #### 2 4323-8 #### EMERITA CABALLERO L ([id number]) [facility] ([facility]) [address] [place] [address] 25272 Urea nitrogen [Mass/Vol] 21 mg/dL Normal 6-23 [facility] Comment on above: Performed By: #### 2 4323-8 #### EMERITA CABALLERO L ([id number]) [facility] ([facility]) [address] [place] [address] 59656 Hepatitis B virus surface Ab on 01-18-2023 HBV surface Ab Qn (S) 30.7 mIU/mL High <10.0 Un [facility] Comment on above: Result Comment: Inte rpretive Criteria: <10 mIU/mL Nonreactive >=10 mIU/mL Reactive Biotin interference may cause falsely decreased results. Patients taking a Biotin dose of up to 5 mg/day should refrain from taking Biotin for 24 hours before sample collection. Providers may contact their local laboratory for further information. Performed By: #### 1 6935-9 #### EMERITA Farmer ([id number]) [facility] ([facility]) [id number] [place] [address] M. tuberculosis stim IFN-g a nd spot count panel (Bld)on 01-18-2023 Gamma interferon negative control spot count (Bld) [#] Passed [facility] Comment on above: Performed By: #### 7 4281-7 #### QUEST CHANTL ([id number]) [address] M. tuberculosis stim IFN-g Ql (Bld) [Interp] Negative [facility] Comment on above: Performed By: #### 7 4281-7 #### QUEST CHANTL ([id number]) [address] Mitogen stimulated gamma interferon positive control spot count (Bld) [#] Passed [facility] Comment on above: Performed By: #### 7 4281-7 #### QUEST CHANTL ([id number]) [address] PANEL A SPOT COUNT 1 [facility] Comment on above: Performed By: #### 7 4281-7 #### QUEST CHANTL ([id number]) [address] PANEL B SPOT COUNT o [facility] Comment on above: Performed By: #### 7 4281-7 #### QUEST CHANTL ([id number]) [address] Hep Bs Abon 08-03-2018 HBV surface Ab Ql (S) Non Reactive [facility] Comment on above: Result Comment: Non Reactive: Inconsistent with immunity, less than 10 mIU/mL Reactive: Consistent with immunity, greater than 9.9 mIU/mL Performed at: [facility] [id number] PhD Ravinder Morrow Performed By: #### 2 [id number] #### [facility] [address] [place] [address] Vital Signs Date Time Vital Sign Value Performing Clinician Facility 11-29-2024 13:35-0400 Body height 187.96 cm Brittany Clayton MD Work Phone: [facility] 11-29-2024 13:35-0400 Body mass index (BMI) [Ratio] 26 kg/m2 Brittany Clayton MD Work Phone: [facility] 11-29-2024 13:35-0400 Body weight 92.07 kg Brittany Clayton MD Work Phone: [facility] 11-29-2024 13:35-0400 Diastolic blood pressure 80 mm[Hg] Brittany Clayton MD Work Phone: [facility] 11-29-2024 13:35-0400 Heart rate 59 /min Brittany Clayton MD Work Phone: [facility] 11-29-2024 13:35-0400 Systolic blood pressure 133 mm[Hg] Brittany Clayton MD Work Phone: [facility] 08-11-2024 08:28-0400 Body height 188 cm Mary Monet PA Work Phone: [facility] 08-11-2024 08:28-0400 Body mass index (BMI) [Ratio] 26.19 kg/m2 Mary Monet PA Work Phone: [facility] 08-11-2024 08:28-0400 Body weight 92.53 kg Mary Monet PA Work Phone: [facility] 08-11-2024 08:28-0400 Diastolic blood pressure 68 mm[Hg] Mary Hemmer PA Work Phone: [facility] 08-11-2024 08:28-0400 Heart rate 66 /min Mary Hemmer PA Work Phone: [facility] 08-11-2024 08:28-0400 SaO2% (BldA) [Mass fraction] 98 % Mary Hemmer PA Work Phone: [facility] 08-11-2024 08:28-0400 Systolic blood pressure 112 mm[Hg] Mary Hemmer PA Work Phone: [facility] 04-11-2024 09:32-0500 Body height 188 cm Mary Hemmer PA Work Phone: [facility] 04-11-2024 09:32-0500 Body mass index (BMI) [Ratio] 26.55 kg/m2 Mary Hemmer PA Work Phone: [facility] 04-11-2024 09:32-0500 Body weight 93.8 kg Mary Hemmer PA Work Phone: [facility] 04-11-2024 09:32-0500 Diastolic blood pressure 84 mm[Hg] Mary Hemmer PA Work Phone: [facility] 04-11-2024 09:32-0500 Heart rate 64 /min Mary Hemmer PA Work Phone: [facility] 04-11-2024 09:32-0500 Respiratory rate 16 /min Mary Hemmer PA Work Phone: [facility] 04-11-2024 09:32-0500 SaO2% (BldA) [Mass fraction] 97 % Mary Hemmer PA Work Phone: [facility] 04-11-2024 09:32-0500 Systolic blood pressure 126 mm[Hg] Mary Hemmer PA Work Phone: [facility] 02-11-2024 09:07-0500 Body height 188 cm Mary Hemmer PA Work Phone: [facility] 02-11-2024 09:07-0500 Body mass index (BMI) [Ratio] 26.78 kg/m2 Mary Hemmer PA Work Phone: [facility] 02-11-2024 09:07-0500 Body weight 94.62 kg Mary Hemmer PA Work Phone: [facility] 02-11-2024 09:07-0500 Diastolic blood pressure 78 mm[Hg] Mary Hemmer PA Work Phone: [facility] 02-11-2024 09:07-0500 Heart rate 63 /min Mary Hemmer PA Work Phone: [facility] 02-11-2024 09:07-0500 Respiratory rate 16 /min Mary Hemmer PA Work Phone: [facility] 02-11-2024 09:07-0500 SaO2% (BldA) [Mass fraction] 98 % Mary Hemmer PA Work Phone: [facility] 02-11-2024 09:07-0500 Systolic blood pressure 132 mm[Hg] Mary Hemmer PA Work Phone: [facility] 12-25-2023 20:15-0400 Body temperature 97.5 [degF] DO Feli Irizarry Work Phone: [facility] 12-25-2023 20:15-0400 Diastolic blood pressure 70 mm[Hg] DO Feli Irizarry Work Phone: [facility] 12-25-2023 20:15-0400 Heart rate 51 /min DO Feli Irizarry Work Phone: [facility] 12-25-2023 20:15-0400 Respiratory rate 16 /min DO Feli Irizarry Work Phone: [facility] 12-25-2023 20:15-0400 SaO2% (BldA) [Mass fraction] 95 % DO Feli Irizarry Work Phone: [facility] 12-25-2023 20:15-0400 Systolic blood pressure 155 mm[Hg] DO Feli Irizarry Work Phone: [facility] 12-25-2023 16:50-0400 Body height 187.96 cm DO Feli Irizarry Work Phone: [facility] 12-25-2023 16:50-0400 Body weight 93.4 kg DO Feli Irizarry Work Phone: [facility] 12-06-2023 13:54-0400 Body mass index (BMI) [Ratio] 27.5 kg/m2 Emily Popil PA-C Work Phone: [facility] 12-06-2023 13:54-0400 Body weight 94.53 kg Emily Popil PA-C Work Phone: [facility] 12-06-2023 13:54-0400 Diastolic blood pressure 78 mm[Hg] Emily Popil PA-C Work Phone: [facility] 12-06-2023 13:54-0400 Heart rate 73 /min Emily Popil PA-C Work Phone: [facility] 12-06-2023 13:54-0400 SaO2% (BldA) [Mass fraction] 98 % Emily Popil PA-C Work Phone: [facility] 12-06-2023 13:54-0400 Systolic blood pressure 142 mm[Hg] Emily Popil PA-C Work Phone: [facility] 10-22-2023 12:32-0400 Body height 185 cm Bijal Tompkins SHIPPING SUPPORT CLERK [facility] 10-22-2023 12:32-0400 Body mass index (BMI) [Ratio] 28.4 kg/m2 Bijal Tompkins SHIPPING SUPPORT CLERK [facility] 10-22-2023 12:32-0400 Body temperature 97.88 [degF] Bijal HainesmberNatividadson SHIPPING SUPPORT CLERK [facility] 10-22-2023 12:32-0400 Body weight 97.5 kg Bijal Tompkins SHIPPING SUPPORT CLERK [facility] 10-22-2023 12:32-0400 Diastolic blood pressure 70 mm[Hg] Bijal HainesmbKaison SHIPPING SUPPORT CLERK [facility] 10-22-2023 12:32-0400 Heart rate 75 /min Bijal HainesmbKaison SHIPPING SUPPORT CLERK [facility] 10-22-2023 12:32-0400 Respiratory rate 18 /min Bijal James-Olguin SHIPPING SUPPORT CLERK [facility] 10-22-2023 12:32-0400 SaO2% (BldA) [Mass fraction] 98 % Bijal Asifson SHIPPING SUPPORT CLERK [facility] 10-22-2023 12:32-0400 Systolic blood pressure 130 mm[Hg] Bijal JamesFernandoOlguin SHIPPING SUPPORT CLERK [facility] Encounters Encounter Date Encounter Type Care Provider Facility Start: 12-04-2024 End: 12-04-2024 Clinisync Result Encounter Generic External Data Provider [facility] External [facility] Unsolicited Start: 12-04-2024 End: 12-04-2024 Clinisync Result Encounter Generic External Data Provider [facility] External [facility] Unsolicited Start: 11-29-2024 End: 11-29-2024 ambulatory Brittany Clayton MD Work Phone: [facility] Work Phone: Start: 11-29-2024 End: 11-29-2024 Patient encounter procedure Bobbi [facility]anc[facility] Work Phone: Start: 11-22-2024 End: 11-22-2024 Clinisync Result Encounter Mary Bashir Chiki PA Work Phone: [facility] External [facility] Unsolicited Start: 11-22-2024 End: 11-22-2024 Clinisync Result Encounter Mary Camejo Mattmer PA Work Phone: [facility] Unsolicited Start: 11-14-2024 End: 11-14-2024 Orders Only Mary Monet PA Work Phone[facility] Comment on above: Abdominal pain, unsp ecified [...] Start: 02-11-2024 End: 02-11-2024 Bamboo flowsheet Mary Monet PA Work Phone: [facility] Start: 02-11-2024 End: 02-11-2024 Bamboo flowsheet Mary Bashir Chiki CHEN Work Phone: [facility] Start: 02-11-2024 End: 02-11-2024 Office outpatient new 30 minutes Mary CHEN Work Phone: [facility] Comment on above: Near syncope (Primar y Dx); Hypoglycemia; Deviated septum; Snoring; Elevated red blood cell count; Abnormal ECG; Elevated BUN; Anxiety Start: 02-11-2024 End: 02-11-2024 ambulatory MARY Bashir CHIKI Not Available Start: 12-25-2023 End: 12-25-2023 Emergency department patient visit DO Feli Irizarry Work Phone: [facility] Work Phone: Start: 12-06-2023 End: 12-06-2023 Office outpatient visit 15 minutes Emily Rai PA-C Work Phone: [facility] Building Comment on above: SOB (shortness of br eath) (Primary Dx); Elevated blood pressure reading; Anxiety; Deviated septum; Snoring Start: 12-06-2023 End: 12-06-2023 ambulatory EMILY Stewart [facility] Start: 11-02-2023 End: 11-02-2023 ambulatory [facility] Start: 11-01-2023 End: 11-01-2023 ambulatory BRITTANY LIZAMA [facility] Start: 10-22-2023 Bijal Tompkins NP [facility] Start: 10-21-2023 End: 10-21-2023 ambulatory [facility] Start: 01-18-2023 End: 01-18-2023 ambulatory [facility] Start: 01-18-2023 End: 01-18-2023 Encounter for general adult medical examination without abnormal findings [facility] Start: 01-02-2021 End: 01-02-[address] [facility] Facility:H1 Procedures Date Procedure Procedure Detail Performing Clinician Start: 12-04-2024 [facility] CMP (CMP) (FOR R [facility] USE) Generic External Data Provider Start: 12-04-2024 [facility] LIPASE Generic Ex ternal Data Provider Start: 11-22-2024 US RIGHT UPPER QUADRANT Mary Monet PA Work Phone: Start: 11-22-2024 XR ABDOMEN 1V Mary domingo PA Work Phone: Start: 12-25-2023 CT angiography of head DO Feli Irizarry Work Phone: Start: 12-25-2023 CT angiography of ne ck vessels DO Feli Irizarry Work Phone: Start: 12-25-2023 CT of chest DO Feli Ro binson Work Phone: Start: 12-25-2023 CT of head without contrast DO Feli Irizarry Work Phone: Start: 01-18-2023 HEPATITIS B SURFACE ANTIBODY RUGEN FORREST Start: 01-18-2023 T-SPOT TB RUGEN FORREST Plan of Treatment Date Care Activity Detail Author Start: 2046 Zoster Vaccines (1 of 2) Zoste r Vaccines (1 of 2) [facility] Start: 08-11-2024 End: 08-11-2025 XR Abdomen Single view XR abdomen 1 view Imaging Routine Abdominal pain, unspecified abdominal location Expected: 08/11/2024, Expires: 08/11/2025 [facility] Work Phone: Comment on above: Expected: 08/11/2024 , Expires: 08/11/2025 Start: 04-11-2024 End: 04-11-2024 Patient encounter procedure [facility] Comment on above: Arrived Start: 02-11-2024 End: 02-10-2025 Basic metabolic 1998 panel - Serum or Plasma Basic metabolic panel Lab Routine Hypoglycemia Elevated BUN Expected: 02/11/2024 (Approximate), Expires: 02/10/2025 [facility] Comment on above: Expected: 02/11/2024 (Approximate), Expires: 02/10/2025 Start: 02-11-2024 End: 02-10-2025 CBC W Auto Differential panel - Blood CBC and differential Lab Routine Elevated red blood cell count Expected: 02/11/2024 (Approximate), Expires: 02/10/2025 [facility] Comment on above: Expected: 02/11/2024 (Approximate), Expires: 02/10/2025 Start: 02-11-2024 End: 02-10-2025 GAD65, IA-D,AND INSULIN AUTOANTIBODY GAD65, IA-D,AND INSULIN AUTOANTIBODY Lab Routine Near syncope Hypoglycemia Expected: 02/11/2024 (Approximate), Expires: 02/10/2025 [facility] Work Phone: Comment on above: Expected: 02/11/2024 (Approximate), Expires: 02/10/2025 Start: 02-11-2024 End: 02-10-2025 Holter monitor study Holter monitor Imaging Routine Near syncope Abnormal ECG Expected: 02/11/2024 (Approximate), Expires: 02/10/2025 [facility] Comment on above: Expected: 02/11/2024 (Approximate), Expires: 02/10/2025 Start: 02-07-2024 End: 02-07-2024 Patient encounter procedure 02/07/2024 2:00 PM EST Office Visit [facility] [address] [address] Emily Rai PA-C [address] [facility], [address] [address] [facility] Start: 11-28-2023 COVID-19 Vaccine ( season) COVID-19 Vaccine ( season) [facility] Start: 11-28-2023 Influenza vaccination Influenza Vacc ine (#1) [facility] Start: 11-13-2019 DTaP/Tdap/Td Vaccine s (7 - Td or Tdap) DTaP/Tdap/Td Vaccines (7 - Td or Tdap) [facility] Start: 2014 Hepatitis C screening Hepatitis C Sc reegurdeep [facility] Start: 12-10-2011 HPV Vaccines (1 - Ma le 3-dose series) HPV Vaccines (1 - Male 3-dose series) [facility] Start: 05-15-2010 Hepatitis A Vaccines (2 of 2 - 2-dose series) Hepatitis A Vaccines (2 of 2 - 2-dose series) [facility] Start: 1996 HIV screening HIV Screening [facility] Start: 1996 Lipid panel Lipid Panel [facility] Start: 1996 Yearly Adult Physical Yearly Adult P hysical [facility] Comprehensive metabo lic 2000 panel - Serum or Plasma [facility] Patient Education Near Fainting (DC) Anxiety, Adult ED Low Blood Sugar, Adult ED [facility] Work Phone: Patient referral [facility] Work Phone: [facility] Immunizations Immunization Date Immunization Notes Care Provider Fa ute 12-22-2022 influenza, injectabl e, quadrivalent, preservative free Emily Popil PA-C Work Phone: [facility] Work Phone: 12-22-2022 influenza virus vacc ine, unspecified formulation Emily Popil PA-C Work Phone: [facility] Work Phone: 04-14-2022 tuberculin skin test ; purified protein derivative solution, intradermal Emily Popil PA-C Work Phone: [facility] Work Phone: 12-04-2021 Influenza, injectabl e, Madin [place] Canine Kidney, preservative free, quadrivalent Emily Popil PA-C Work Phone: [facility] Work Phone: 01-04-2021 influenza, injectabl e, quadrivalent, contains preservative Emily Popil PA-C Work Phone: [facility] Work Phone: 11-12-2009 hepatitis A vaccine, pediatric/adolescent dosage, 2 dose schedule Emily Rai PA-C Work Phone: [facility] Work Phone: 11-12-2009 meningococcal polysaccharide (groups A, C, Y and W-135) diphtheria toxoid conjugate vaccine (MCV4P) Emily Rai PA-C Work Phone: [facility] Work Phone: 11-12-2009 tetanus toxoid, redu stephany diphtheria toxoid, and acellular pertussis vaccine, adsorbed Emily Rai PA-C Work Phone: [facility] Work Phone: 11-12-2009 varicella virus vaccine Seng Rai PA-C Work Phone: [facility] Work Phone: 11-12-2009 hepatitis A and hepatitis B vaccine Emily Farleyil PA-C Work Phone: [facility] Work Phone: 11-06-2002 diphtheria, tetanus toxoids and acellular pertussis vaccine, unspecified formulation Emily Miguelitoil PA-C Work Phone: [facility] Work Phone: 11-06-2002 measles, mumps and rubella virus vaccine Emily Miguelitoil PA-C Work Phone: [facility] Work Phone: 11-06-2002 poliovirus vaccine, inactivated Emily Farleyil PA-C Work Phone: [facility] Work Phone: 03-27-1998 diphtheria, tetanus toxoids and acellular pertussis vaccine, unspecified formulation Emily Popil PA-C Work Phone: [facility] Work Phone: 03-27-1998 haemophilus influenz ae type b vaccine, conjugate unspecified formulation Emily Popil PA-C Work Phone: [facility] Work Phone: 03-27-1998 measles, mumps and rubella virus vaccine Emily Popil PA-C Work Phone: [facility] Work Phone: 03-27-1998 poliovirus vaccine, inactivated Emily Popil PA-C Work Phone: [facility] Work Phone: 12-26-1997 varicella virus vaccine Tyle r Popil PA-C Work Phone: [facility] Work Phone: 06-07-1997 diphtheria, tetanus toxoids and acellular pertussis vaccine, unspecified formulation Emily Popil PA-C Work Phone: [facility] Work Phone: 06-07-1997 haemophilus influenz ae type b conjugate and Hepatitis B vaccine Emily Popil PA-C Work Phone: [facility] Work Phone: 04-09-1997 diphtheria, tetanus toxoids and acellular pertussis vaccine, unspecified formulation Emily Popil PA-C Work Phone: [facility] Work Phone: 04-09-1997 haemophilus influenz ae type b vaccine, conjugate unspecified formulation Emily Popil PA-C Work Phone: [facility] Work Phone: 04-09-1997 poliovirus vaccine, inactivated Emily Popil PA-C Work Phone: [facility] Work Phone: 02-13-1997 diphtheria, tetanus toxoids and acellular pertussis vaccine, unspecified formulation Emily Popil PA-C Work Phone: [facility] Work Phone: 02-13-1997 haemophilus influenz ae type b conjugate and Hepatitis B vaccine Emily Rai PA-C Work Phone: [facility] Work Phone: 02-13-1997 poliovirus vaccine, inactivated Emily Rai PA-C Work Phone: [facility] Work Phone: 1996 hepatitis B vaccine, pediatric or pediatric/adolescent dosage Emily Rai PA-C Work Phone: [facility] Work Phone: Payers Date Payer Category Payer [facility] er [id number] 2023 Self-pay 2023 Unknown EMPLOYEE [employer]I [employer]IDEN [employer]AN EMPLOYEE MEDICAL PLAN HEALTHY CHOICE [id number] 2023-Present [address] [place] [address] [id number] 2023 Unknown [id number] 1996 Unknown [id number] [id number] 1996 Unknown [id number]. 2.1245 1996 Unknown [id number]. 2.1245 1996 Unknown [id number]. 2.1244 1996 Unknown [id number] [id number]. [id number] 1996 Unknown [id number] [id number]. 2.9 1996 Unknown [id number] [id number]. 2.9 1996 Unknown [id number] [id number]. 2.1259 1959 Private Health Insurance [id number] Unknown [id number] [id number] Social History Date Type Detail Facility Start: 12-25-2023 End: 02-11-2024 Tobacco smoking status TNIS Never smoked tobacco (finding) [facility] Start: 1996 Sex Assigned At Male F [facility] Start: 11-02-2023 End: 02-11-2024 Tobacco use and exposure Smokeless tobacco non-user [facility] Work Phone: Start: 02-11-2024 End: 11-21-2024 Alcoholic beverage intake Current drinker of alcohol (finding) [facility] Work Phone: Start: 02-08-2024 End: 08-11-2024 [...] a drink containing alcohol? Monthly or less [facility] Work Phone: How many standard dr inks containing alcohol do you have on a typical day? 1 or 2 [facility] Work Phone: How often do you hav e 6 or more drinks on 1 occasion? Never [facility] Work Phone: Do you feel stress [...] 1996 Sex assigned at Not on file [facility] Work Phone: Start: 11-26-2023 End: 12-06-2023 Exposure to SARS-CoV-2 (event) Not sure [facility] Sex Male (finding) [facility] NEGATED: Highlighted rowStart: VANCEF History of tobacco use Passive smoker [facility] Work Phone: Functional Status Date Assessment Result Facility 08-11-2024 Patient Health [facility] ionnaire 2 item (PHQ-2) [Reported] [facility] Clinical Notes 06-07-2020 to 11-14-2024 GUSTAVO Lazo - 11/14/2024 12:20 PM GUSTAVO López - 08/11/2024 8:30 AM GUSTAVO López - 04/11/2024 9:30 AM GUSTAVO Abel - 02/11/2024 9:00 AM EST Note Date & Type Note Facility 11-14-2024 History of Present illness Narrative Pantoprazole refilled documented in this encounter [facility] 08-11-2024 History of Present illness Narrative [...] eats, oatmeal and banana in the morning. Citizen Of [place] yogurt, mixed berries and almonds mid morning. [...] have this done where he works at [employer]. Will notify pt of results once received. ABD non-acute. Advised pt that if symptoms persist/worsen he is to notify office. Could consider CT of ABD in future if needed. Continue healthy diet, continue to stay hydrated. Follow up if symptoms worsen or fail to improve. documented in this encounter [facility] 04-11-2024 History of Present illness Narrative [...] 07/10/2024) for Recheck. documented in this encounter [facility] 02-11-2024 History of Present illness Narrative [...] November didn't feel right so [place] [facility] [place] they [place] a head CT. Does [...] Review Testing Results. documented in this encounter [facility] 12-06-2023 History of Present illness Narrative [...] any questions regarding their care or treatment. [facility] 2 months Diagnoses and all orders for this visit: SOB (shortness of breath) Elevated blood pressure reading Anxiety - busPIRone (Buspar) 5 mg tablet; Take 1 tablet (5 mg) by mouth 2 times a day. Deviated septum Snoring documented in this encounter [facility] Work Phone: 06-07-2020 Note Patient Outreach ([place] VAMN) ELVIN CAMILO ([id number]) 1995 [facility] Date Time Provider Department 06/07/20 LINDA ALCANTARA During your visit today, we recorded the following information about you: Allergies As of Date: 06/07/2020 (Not on File) Date Reviewed: Never Reviewed Order(s):SARS-COVID VACCINE 1ST DOSE APPT [[id number]] Order #: [id number] FUTURE Problem List As Of Date: 06/07/2020 (None) Encounter Status:Closed by NUBIA CISNEROS on 06/10/20 [facility] Evaluation note No assessment inform ation [facility] Work Phone: Evaluation note Diagnosis Near syncope- Primary Hypoglycemia Hypoglycemia, unspecified Deviated septum Deviated nasal septum Snoring Other dyspnea and respiratory abnormality Elevated red blood cell count Polycythemia, secondary Abnormal ECG Nonspecific abnormal electrocardiogram (ECG) (EKG) Elevated BUN Other abnormal blood chemistry Anxiety Anxiety state, unspecified documented in this encounter [facility] HealthcareEvaluation note* Diagnosis SOB (shortness of breath)- Primary Shortness of breath Elevated blood pressure reading Elevated blood pressure reading without diagnosis of hypertension Anxiety Anxiety state, unspecified Deviated septum Deviated nasal septum Snoring Other dyspnea and respiratory abnormality documented in this encounter [facility] Work Phone: Evaluation note* Diagnosis Near syncope- Primary Symptomatic bradycardia Anxiety Anxiety state, unspecified documented in this encounter [facility] HealthcareEvaluation note* Diagnosis Abdominal pain, unspecified abdominal location- Primary documented in this encounter [facility] HealthcareEvaluation note* Diagnosis Abdominal pain, unspecified abdominal location documented in this encounter [facility] HealthcareEvaluation note* Diagnosis Onset Date Resolution Status Admit Date Abdominal pain acute November 29, 2024 1:24pm [facility] Work Phone: Hospital Discharge instructions Additional Instructions Consider taking something when symptomatic to see that your glucose as discussed. Also consider autoimmune workup if not improving. Hold on taking caffeine for a week or 2 and see how you respond. Follow-up with your primary care physician locally.[facility] Work Phone: Instructions* Instruction Text Your symptoms are likely the result of Anxiety.Healty diet drink plenty of water Follow-up with PCP referrral submitted.If Symptoms worsens to ED. [facility] Reason for referral (narrative)No reason for referral [facility] Work Phone: Summary Purpose Family History Relationship Condition Age at Onset Recorded Date/T hortensia father Malignant neoplasm Unknown Advance Directives Advance Directive Response Recorded Date/ Time Advance Directives No November 5:14pm Chief Complaint and Reason for Visit Chief Complaint vision changes, sob Chief Complaint Admit Date Referred by Dr Clayton: abdominal pain Sept 2024 1:24pm Reason for Visit Admit Date Abdominal pain November 29, 2024 1:24pm Additional Source Comments (unrecognized sect ion and content) No Status Records FoundNo Status Records FoundNo Status Records FoundNo Status Records FoundNo Status Records FoundNo Status Records FoundNo Status Records FoundNo Status Records Found INFORMATION SOURCE (unrecogn ized section and content) DATE CREATED AUTHOR 08/17/2018 Fernie Lo [facility] DATE CREATED AUTHOR AUTHOR'S ORGANIZ ATION 02/17/2021 [facility] DATE CREATED AUTHOR AUTHOR'S ORGANIZ ATION 04/23/2021 [facility] DATE CREATED AUTHOR AUTHOR'S ORGANIZ ATION 11/07/2023 [facility] DATE CREATED AUTHOR AUTHOR'S ORGANIZ ATION 12/07/2023 [facility] DATE CREATED AUTHOR AUTHOR'S ORGANIZ ATION 02/26/2024 [facility] DATE CREATED AUTHOR AUTHOR'S ORGANIZ ATION 08/05/2024 [facility] DATE CREATED AUTHOR AUTHOR'S ORGANIZ ATION 08/12/2024 [facility] EPIC Care Teams (unrecognized sec tion and content) Team Status: Active Member Role Status Dates Brittany Clayton MD Primary Care Provider Active Team Status: Inactive Member Role Status Dates Feli Irizarry DO Emergency Provider Active Sta rt: December 25, 2023 End: December 25, 2023 Brittany Clayton MD Primary Care Provider Active S tart: December 25, 2023 End: December 25, 2023 Nurse Wound Care Relationship Specialty Start Date End Date Emily Rai PA-C [address] [facility], [address] [address] PCP - General Internal Medicine 11/02/23 Team [...] BE BASED ON THE PRIMARY CLINICAL RECORDS. [facility] [employer] [facility]. provides no warranty or guarantee of the accuracy or completeness of information in this document.
--- OUTSIDE RECORDS SUMMARY | 2025-01-08 12:04 | XMS_ITS | Encounter Summary ---
Author Organization [facility] Address [address] [place] [address] Care Team Providers Care Book Solicitor Name Role Phone Unavailable Primary Care Provider Unavailabl e Encounter Details Date Type Department Care Team (Late st Contact Info) Description 12/27/[address] [facility] [address] [place] [address] Unallocated, Noms Provider, [address] [place] [address] Social History Tobacco Use Types Packs/Day Years [...]
--- OUTSIDE RECORDS SUMMARY | 2025-01-08 12:04 | XMS_ITS | Clinical Summary ---
Author Organization [facility] Address [address] [place] [address] Phone Care Team Providers Care Sales Representative Adding Machines Name Role Phone Wallace Christopher PA-C Primary Care Provider [phone] Mary Whittington PA-C Unavailable [phone] Allergies No known active allergies Medications busPIRone [...] Encounters Date Type Department Care Team Description 12/30/2024 Patient Risk Score [facility] [address] [place] [address] 11/30/2024 Patient Risk Score [facility] [address] [place] [address] 10/30/2024 Patient Risk Score [facility] [address] [place] [address] from Last 3 Months Immunizations Immunization Administration [...] kg (208 lb 6.4 oz) 12/06/2023 1:54 PM EDT Height 185.4 cm (6' 1 ) [...] 11/13/2019 11/12/2009, 11/06/2002, 03/27/1998, Additional history exists HPV Vaccines (1 - 3-dose standard series) 12/10/2023 COVID-19 Vaccine ( season) 2024 Influenza Vaccine (#1) 2024 3, 12/04/2021, 01/04/2021 Zoster Vaccines (1 of 2) 2046 11/12/2009, 11/29 Hepatitis B Vaccines Completed 06/07/1997, 02/13/1997, 1996 HIB Vaccines Completed 03/27/1998, 05/27, 04/09/1997, Additional history exists IPV Vaccines Completed 11/06/2002, 02/28, 04/09/1997, Additional history exists MMR Vaccines Completed 11/06/2002, 03/27/1998 Meningococcal Vaccine Aged Out 11/12/2009 No pamela darius eligible based on patient's age to complete this topic Pneumococcal Vaccine: Pediatrics and At-Risk Adult Patients Aged Out No longer eligible based on patient's age to complete this topic Rotavirus Vaccines Aged Out No longer eligible based on patient's age to complete this topic Insurance EMPLOYEE MEDICAL PLAN HEALTHY CHOICE EMPLOYEE [employer] HEALTHY CHOICE Care Teams Sales Representative Adding Machines Relationship Specialty Start Date End Date Wallace Christopher PA-C [address] [facility], [address] [place] [address] PCP - General Internal Medicine 11/02/23 Mary Whittington PA-C 112 [facility] 110 [place] [address] PCP - Employee ACO PCP 05/27/24
--- OUTSIDE RECORDS SUMMARY | 2025-01-08 12:04 | XMS_ITS | Encounter Summary ---
Author Organization [facility] Address [address] [place] [address] Phone Care Team Providers Care Product Marketing Intern Name Role Phone Wallace Christopher PA-C Primary Care Provider [phone] Wallace Christopher PA-C Unavailable [phone] Wallace Christopher PA-C Unavailable [phone] Mary Whittington PA-C Unavailable [phone] Encounter Details Date Type Department Care Team (Late st Contact Info) Description 07/31/2023 Patient Risk Score [facility] Care Management [address] [place] [address] Social History Tobacco Use Types [...] on filedocumented in this encounter Care Teams Product Marketing Intern Relationship Specialty Start Date End Date Wallace Christopher PA-C [address] [facility], [address] [place] [address] PCP - General Internal Medicine 11/02/23 Wallace Christopher PA-C [address] [facility], [address] [place], [place] [id number] PCP - Employee ACO PCP 12/28/23 Wallace Christopher PA-C [address] [facility], [facility] [address] [place] [address] PCP - Employee ACO PCP 02/27/24 5 Mary Whittington PA-C [address] [place] [address] [address] [place] [address] PCP - Employee ACO PCP 05/27/24 documented as of this encounter
--- OUTSIDE RECORDS SUMMARY | 2025-01-08 12:05 | XMS_ITS | Encounter Summary ---
Author Organization [facility] Address [address] [place] [address] Phone Care Team Providers Care Machine Sneller Name Role Phone Wallace Christopher PA-C Primary Care Provider [phone] Wallace Christopher PA-C Unavailable [phone] Mary Whittington PA-C Unavailable [phone] Encounter Details Date Type Department Care Team (Late st Contact Info) Description 05/01/2024 Patient Risk Score [facility] [address] [place] [address] Social History Tobacco Use Types [...] documented as of this encounter Care Teams Machine Sneller Relationship Specialty Start Date End Date Wallace Christopher PA-C [address] [facility], [facility] [address] [place] [address] PCP - General Internal Medicine 11/02/23 Wallace Christopher PA-C [address] [facility], [facility] [address] [place] [address] PCP - Employee ACO PCP 02/27/24 5 Mary Whittington PA-C [address] [place] [address] [address] [place] [address] PCP - Employee ACO PCP 05/27/24 documented as of this encounter
--- OUTSIDE RECORDS SUMMARY | 2025-01-08 12:05 | XMS_ITS | Encounter Summary ---
Author Organization [facility] Address [address] [place] [address] Care Team Providers Care Pricing Lead Name Role Phone Unavailable Primary Care Provider Unavailabl e Encounter Details Date Type Department Care Team (Late st Contact Info) Description 02/09/2024 Abstract [facility] [address] [place] [address] Unallocated, [facility] Provider, [address] [place] [address] Social History Tobacco Use Types Packs/Day Years [...] often do you attend chur ch or bahai services? 1 to 4 times per year [...] and heating? Not hard at all 02/08/2024 [facility] - Occupational [...] any time in the past 12 m [facility], were you homeless or living in a senior living (including now)? No 02/08/2024 Sex and Gender [...]
--- OUTSIDE RECORDS SUMMARY | 2025-01-08 12:05 | XMS_ITS | Encounter Summary ---
Author Organization [facility] Address [address] [place] [address] Care Team Providers Care Marketing Program Manager Name Role Phone Unavailable Primary Care Provider Unavailabl e Encounter Details Date Type Department Care Team (Late st Contact Info) Description 02/09/2024 Abstract [facility] [address] [place] [address] Unallocated, [facility] Provider, [address] [place] [address] Social History Tobacco Use Types Packs/Day Years [...] often do you attend chur ch or synagogue services? 1 to 4 times per year [...] and heating? Not hard at all 02/08/2024 [facility] - Occupational [...] in the past 12 m [facility], were you homeless or living in [...]
--- OUTSIDE RECORDS SUMMARY | 2025-01-08 12:05 | XMS_ITS | Encounter Summary ---
Author Organization [facility] Address [address] [place] [address] Phone Care Team Providers Care Operations Research Scientist Name Role Phone Wallace Christopher PA-C Primary Care Provider [phone] Wallace Christopher PA-C Unavailable [phone] Mary Whittington PA-C Unavailable [phone] Encounter Details Date Type Department Care Team (Late st Contact Info) Description 03/31/2024 Patient Risk Score [facility] [address] [place] [address] Social History Tobacco Use Types [...] documented as of this encounter Care Teams Operations Research Scientist Relationship Specialty Start Date End Date Wallace Christopher PA-C [address] [facility], [facility] [address] [place] [address] PCP - General Internal Medicine 11/02/23 Wallace Christopher PA-C [address] [facility], [facility] [address] [place] [address] PCP - Employee ACO PCP 02/27/24 5 Mary Whittington PA-C [address] [place] [address] [address] [place] [address] PCP - Employee ACO PCP 05/27/24 documented as of this encounter
--- OUTSIDE RECORDS SUMMARY | 2025-01-08 12:05 | XMS_ITS | Encounter Summary ---
Author Organization [facility] Address [address] [place] [address] Phone Care Team Providers Care Platform Beater Name Role Phone Wallace Christopher PA-C Primary Care Provider [phone] Wallace Christopher PA-C Unavailable [phone] Mary Whittington PA-C Unavailable [phone] Encounter Details Date Type Department Care Team (Late st Contact Info) Description 03/01/2024 Patient Risk Score [facility] Care Management [address] [facility] [address] [place] [address] Social History Tobacco Use Types [...] documented as of this encounter Care Teams Platform Beater Relationship Specialty Start Date End Date Wallace Christopher PA-C [address] [facility], [facility] [address] [place] [address] PCP - General Internal Medicine 11/02/23 Wallace Christopher PA-C [address] [facility], [facility] [address] [place] [address] PCP - Employee ACO PCP 02/27/24 5 Mary Whittington PA-C [address] [place] [address] [address] [place] [address] PCP - Employee ACO PCP 05/27/24 documented as of this encounter
--- OUTSIDE RECORDS SUMMARY | 2025-01-08 12:05 | XMS_ITS | Encounter Summary ---
Author Organization [facility] Address [address] [place] [address] Care Team Providers Care Marketing Communication Manager Name Role Phone Unavailable Primary Care Provider Unavailabl e Encounter Details Date Type Department Care Team (Late st Contact Info) Description 11/22/2024 Abstract [facility] [address] [place] [id number] Unallocated, [facility] Provider, [address] [place], [place] [id number] Social History Tobacco Use Types Packs/Day Years [...] often do you attend chur ch or orthodoxy services? 1 to 4 times per year 02/08/2024 Do you belong to any clubs o r organizations such as faith groups, unions, fraternal or athletic groups, or [...] Recorded Patient Health Questionnaire-2 Score 0 08/11/2024 [facility] - Occupational Stress [...] any time in the past 12 m [facility], were you homeless or living in a jail (including now)? No 02/08/2024 Sex and Gender [...]
--- OUTSIDE RECORDS SUMMARY | 2025-01-08 12:05 | XMS_ITS | Encounter Summary ---
Author Organization [facility] Address [address] [place] [address] Care Team Providers Care Roving Tester Laboratory Name Role Phone Unavailable Primary Care Provider Unavailabl e Encounter Details Date Type Department Care Team (Late st Contact Info) Description 11/29/2024 Abstract [facility] [address] [facility] [address] [place] [address] Mary Whittington PA [address] [facility] [address] [place] [address] Social History Tobacco Use Types Packs/Day Years [...] often do you attend chur ch or worship services? 1 to 4 times per year 02/08/2024 Do you belong to any clubs o r organizations such as yazdanism groups, unions, fraternal or athletic groups, or [...] Recorded Patient Health Questionnaire-2 Score 0 08/11/2024 [facility] [place] [facility] Occupat ional Health - Occupational Stress [...] any time in the past 12 m [facility], were you homeless or living in a care home (including now)? No 02/08/2024 Sex and [...]
--- OUTSIDE RECORDS SUMMARY | 2025-01-08 12:05 | XMS_ITS | Encounter Summary ---
Author Organization [facility] Address [address] [place] [address] Care Team Providers Care Sr Account Executive Name Role Phone Unavailable Primary Care Provider Unavailabl e Encounter Details Date Type Department Care Team (Late st Contact Info) Description 02/09/2024 Abstract [facility] [address] [place] [address] Unallocated, [facility] Provider, [address] [place] [address] Social History Tobacco Use Types Packs/Day Years [...] often do you attend chur ch or mormonism services? 1 to 4 times per year 02/08/2024 Do you belong to any clubs o r organizations such as moravian groups, unions, fraternal or athletic groups, or [...] and heating? Not hard at all 02/08/2024 [facility]at ional [facility] - Occupational [...] any time in the past 12 m [facility], were you homeless or living in a prison (including now)? No 02/08/2024 Sex and Gender [...]
--- OUTSIDE RECORDS SUMMARY | 2025-01-08 12:05 | XMS_ITS | Encounter Summary ---
Author Organization [facility] Address [address] [place] [address] Phone Care Team Providers Care Supercharger Mechanic Name Role Phone Wallace Christopher PA-C Primary Care Provider [phone] Wallace Christopher PA-C Unavailable [phone] Wallace Christopher PA-C Unavailable [phone] Mary Whittington PA-C Unavailable [phone] Encounter Details Date Type Department Care Team (Late st Contact Info) Description 12/31/2023 Patient Risk Score [facility] Care Management [address] [place] [address] Social History Tobacco Use Types [...] documented as of this encounter Care Teams Supercharger Mechanic Relationship Specialty Start Date End Date Wallace Christopher PA-C [address] [facility], [facility] [address] [place] [address] PCP - General Internal Medicine 11/02/23 Wallace Christopher PA-C [address] [facility], [facility] [address] [place] [address] PCP - Employee ACO PCP 12/28/23 Wallace Christopher PA-C [address] [facility], [facility] [address] [place] [address] PCP - Employee ACO PCP 02/27/24 5 Mary Whittington PA-C 112 [facility] 110 [place] [address] PCP - Employee ACO PCP 05/27/24 documented as of this encounter
[2025-01-08 12:06] VITALS: BP 151/85; PULSE 47; O2SAT 99; BMI 27.0
--- NOTE | 2025-01-08 12:28 | ED_ITS ---
HPI HPI - General Adult General Chief complaint: Headache Stated complaint: HEADACHE, LEG WEAKNESS Time Seen by Provider: 01/08/25 12:16 Source: patient Mode of arrival: walk-in Limitations: no limitations History of Present Illness HPI narrative: Patient is a 21-year-old male that presents emergency department with complaints of 3 weeks of intermittent headache on his left side that will sometimes radiate to his neck. He states last night the pain was so bad that it would wake him. He does experience some nausea when he has the headaches, no vomiting. He has tried ibuprofen, Tylenol, and Excedrin without relief. Yesterday he also noticed a ringing in his ears that has been constant and for the past 2 days since Wednesday he has also noticed a heaviness and little muscle spasms in his left leg only. He denies any medical conditions. His blood pressure sometimes is high and he does have anxiety and was placed on metoprolol at one point but is not taking this anymore. He denies headache at this time. He denies chest pain, abdominal pain, shortness of breath, neck or back pain. Related Data Home Medications ?Medication ?Instructions ?Recorded ?Confirmed No Known Home Medications 01/08/2512/27 Allergies Allergy/AdvReac Type Severity Reaction Status Date / Time No Known Drug Allergies Allergy Verified 01/08/25 12:06 Opioid HPI Opioid Management Most Recent Opioid Data: Last Pain Scale 4 Today, 12:06 Review of Systems ROS Status of ROS 10 or more systems reviewed and unremark able except as noted in history and below PFSH PFSH Social History Little interest or pleasure in doing things: not at all Feeling down, depressed, or hopeless: not at all Exam Narrative Exam Narrative: General: No distress, age-appropriate Skin: Warm, dry, no pallor. No rash. Head: Normocephalic, atraumatic. Neck: Supple, non-tender. Eye: Pupils are equal, round and EOMI. No scleral icterus. Ears, Nose, Mouth, and Throat: No nasal mucosal hypertrophy. Oral mucosa is moist, no posterior oropharynx erythema, uvula is mid-line Cardiovascular: Regular Rate and Rhythm without murmur, gallop or rub. Respiratory: No accessory muscle use or respiratory distress. Lungs are clear to auscultation, no wheezing, rales or rhonchi Chest Wall: no tenderness Back: No midline thoracic or lumbar vertebral tenderness. Musculoskeletal: Full ROM of all extremities, no calf or popliteal tenderness. 5/5 strength bilateral lower extremities, except 4+/5 left hip flexion. GI: Abdomen is soft, non-distended, non tender to palpation. No masses appreciated. No rebound, guarding, or rigidity noted. Neurological: A&O x4. No cranial nerve dysfunction observed. No truncal ataxia. Moves all extremities. Sensation intact. Negative clonus bilaterally. Psychiatric: Cooperative and interactive. Normal mood and affect. Constitutional Vital Signs, click to edit/add: Last Vital Signs Pulse 47 L 01/08/25 12:06 Resp 16 01/08/25 12:06 BP 151/85 H 01/08/25 12:06 Pulse Ox 99 01/08/25 12:06 O2 Del Method Room Air 01/08/25 12:06 Documenting provider has reviewed patient's vital signs: yes Course Vital Signs Vital signs: Vital Signs Pulse Rate 47 L 01/08/25 12:06 Respiratory Rate 16 01/08/25 12:06 Blood Pressure 151/85 H 01/08/25 12:06 Pulse Oximetry 99 01/08/25 12:06 Oxygen Delivery Method Room Air 01/08/25 12:06 Pulse Rate 47 L 01/08/25 12:06 Respiratory Rate 16 01/08/25 12:06 Blood Pressure 151/85 H 01/08/25 12:06 Pulse Oximetry 99 01/08/25 12:06 Oxygen Delivery Method Room Air 01/08/25 12:06 Medical Decision Making MDM Narrative Medical decision making narrative: This is a 29-year-old male that presented to the emergency department with complaints of 3 weeks of intermittent headache, worse last night that woke him. He has been taking ibuprofen, Tylenol, Excedrin without relief. He also started having tinnitus that has been persistent since yesterday. For the past 2 days has had the feeling of left leg heaviness and muscle spasms, mostly in his quadricep. He denies history of migraine, neck or back pain. He was previously on metoprolol for hypertension that his doctor thought was possibly caused by anxiety. He does not take this anymore. He states that his heart rate is normally low and his systolic blood pressure runs around 130s. On arrival patient is in no distress, BP is hypertensive systolic 150s, heart rate 47, patient reports this is baseline. He is having mild weakness in the left leg hip flexion, reports a heaviness and muscle spasms. Not present on exam currently. No clonus bilaterally. No other focal neurological deficits. CT brain without contrast ordered. CBC/BMP ordered. Labs CBC: Within normal limits BMP: Within normal limits CT head was negative for acute intracranial abnormality. Left maxillary sinus disease reconstruction cyst versus polyp.. Left middle turbinate conchal bullosa. I discussed lab results and CT head results with patient and his mother and recommend close follow-up with patient's PCP and I did recommend follow-up with ENT, Dr. Gustafson. 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 Patient's vitals and neurological exam were stable in the emergency department, return precautions were discussed, and patient was discharged in good condition. Differential Diagnosis Differential Diagnosis: Primary headache disorder, cerebral mass, hemorrhage, stroke Lab Data Lab results reviewed: Yes I reviewed the patient's lab results Labs: Lab Results 01/08/25 Range/Units 12:48 WBC 4.6 (4.0-11.0) 10^3/uL RBC 5.46 (4.70-6.10) 10^6/uL Hgb 17.6 (14.0-18.0) g/dL Hct 49.4 (42.0-54.0) % MCV 90.5 (80.0-94.0) fL MCH 32.2 (25.9-34.0) pg MCHC 35.6 H (29.9-35.2) g/dL RDW 12.7 (11.0-15.0) % Plt Count 188 (150-450) 10^3/uL MPV 9.6 (9.5-13.5) fL Neut % (Auto) 64.4 (43.0-75.0) % Lymph % (Auto) 22.0 (20.5-60.0) % [place] % (Auto) 9.3 (1.7-12.0) % Eos % (Auto) 2.8 (0.9-7.0) % Baso % (Auto) 0.9 (0.2-2.0) % Neut # (Auto) 3.0 (1.4-6.5) 10^3/uL Lymph # (Auto) 1.0 L (1.2-3.8) 10^3/uL [place] # (Auto) 0.4 (0.3-0.8) 10^3/uL Eos # (Auto) 0.1 (0.0-0.7) 10^3/uL Baso # (Auto) 0.0 (0.0-0.1) 10^3/uL Abs Immat Gran (auto) 0.03 (0.00-0.03) 10^3/uL Imm/Tot Granulo (auto) 0.6 H (0.0-0.5) % Sodium 143 (136-145) mmol/L Potassium 3.8 (3.5-5.1) mmol/L Chloride 107 (98-107) mmol/L Carbon Dioxide 26.8 (21.0-32.0) mmol/L Anion Gap 13.0 BUN 15.0 (7.0-18.0) mg/dL Creatinine 1.13 (0.70-1.30) mg/dL Est GFR ( Amer) >60 (>=60 mL/min/1.73m^2) Est GFR (Non-Af Amer) >60 (>=60 mL/min/1.73m^2) BUN/Creatinine Ratio 13.3 Glucose 103 (74-106) mg/dL Calcium 8.7 (8.5-10.1) mg/dL Imaging Data CT scan - head: Attestation: I have reviewed the pertinent imaging results. Radiologist's impression: ITS Impressions Head CT 01/08/25 12:34 IMPRESSION: NO ACUTE INTRACRANIAL ABNORMALITY. Impression dictated by: Ilya Cheng M.D. 01/08/2025 1:04 PM Dictation Location: [place] [address] Electronically authenticated by: [id number] Y Date: 01/08/2025 13:04 Discharge Plan Discharge Chief Complaint: Headache Clinical Impression: Headache Patient Disposition: Home, Self-Care Time of Disposition Decision: 13:28 Condition: Good Mode of Transportation: Private Vehicle Prescriptions / Home Meds: No Action No Known Home Medications Print Language: Turkmen Instructions: Acute Headache (ED) Additional Instructions: Rest and hydration ? Stay well hydrated and try to maintain a regular sleep schedule. Pain control ? You may use [id number] medications such as: * Ibuprofen 400?600 mg every 6 hours as needed, OR * Acetaminophen 500?1000 mg every 6 hours as needed (Do not exceed max daily limits. Avoid Excedrin if already using other NSAIDs.) Monitor symptoms: * Keep track of any worsening headaches, balance issues, vision changes, or new neurological symptoms. * Maintain a symptom diary if helpful (especially for leg symptoms or tinnitus). Return to the ER Immediately if You Develop: * Worsening or sudden, severe headache * Confusion or trouble speaking * Weakness or numbness that spreads or worsens * Loss of vision or new double vision * Loss of consciousness * Fever with stiff neck * New difficulty walking or balance problems * Seizure activity Referrals: Ama Gustafson MD [Physician, Ear, Nose, Throat] - 1-2 weeks TREVON MONET [Primary Care Provider, Family Practice] - 1 week
--- NOTE | 2025-01-08 12:34 | CT_ITS ---
The [address] [address] Patient Name: ELVIN CAMILO MRN: [id number] date: 1995 Sex: M Assigned Patient Location: ER Current Patient Location: ER Accession/Order Number: [id number] Exam Date: 01/08/2025 12:52 Report Date: 01/08/2025 13:04 At the request of: DIONICIO CHEN Procedure: CT head/brain wo con CT BRAIN WITHOUT CONTRAST: CLINICAL HISTORY: 3 week left sided headache, tinnitus COMPARISON: None TECHNIQUE: Contiguous axial unenhanced images were obtained through the brain. This CT exam was performed using one or more following dose reduction techniques: Automated exposure control, adjustment of the mA and/or kV according to patient size, or use of iterative reconstruction technique. FINDINGS: There is no evidence of midline shift, intra or extra-axial fluid collection, hemorrhage or CT evidence of acute large vascular distribution stroke. Visualized intraorbital contents appear unremarkable. Left maxillary sinus disease reconstruction cyst versus polyp.. Left middle turbinate conchal bullosa. The surrounding soft tissues are normal. CT/CT head/brain wo con IMPRESSION: NO ACUTE INTRACRANIAL ABNORMALITY. Impression dictated by: Ilya Cheng M.D. 01/08/2025 1:04 PM Dictation Location: [place] [address] Electronically authenticated by: [id number] Y Date: 01/08/2025 13:04
[2025-01-08 12:58] LABS: Hematocrit 49.4 % (42.0-54.0); Hemoglobin 17.6 g/dL (14.0-18.0); Immature Granulocytes Abs Auto 0.03 10^3/uL (0.00-0.03); Immature Granulocytes Pct Auto 0.6 % (0.0-0.5); Lymphocytes Absolute Auto 1.0 10^3/uL (1.2-3.8); Mean Corpuscular HGB Conc 35.6 g/dL (29.9-35.2); Mean Corpuscular Hemoglobin 32.2 pg (25.9-34.0); Mean Corpuscular Volume 90.5 fL (80.0-94.0); Platelet Count 188 10^3/uL (150-450); Red Blood Count 5.46 10^6/uL (4.70-6.10); White Blood Count 4.6 10^3/uL (4.0-11.0)
[2025-01-08 13:18] LABS: Anion Gap 13.0; Blood Urea Nitrogen 15.0 mg/dL (7.0-18.0); Calcium 8.7 mg/dL (8.5-10.1); Carbon Dioxide 26.8 mmol/L (21.0-32.0); Chloride 107 mmol/L (98-107); Estimated GFR (African America >60 (>=60 mL/min/1.73m^2); Estimated GFR (Non-African Ame >60 (>=60 mL/min/1.73m^2); Glucose 103 mg/dL (74-106); Potassium 3.8 mmol/L (3.5-5.1); Sodium 143 mmol/L (136-145)
[2025-01-08 13:43] VITALS: BP 135/69; PULSE 58; O2SAT 98
== END 2025-01-08 13:45 | disposition home or self-care (01) ==
PROVIDERS: Physician Assistant; Emergency Provider Emergency Medicine; PCP Physician Assistant
DX: R51.9 Headache, unspecified (principal); R11.0 Nausea
CPT/HCPCS: 36415; 70450; 80048; 85025; 99284